=== PATIENT | female | born 1960 | race Caucasian/White ===

== ENCOUNTER 2018-10-16 19:25 | Observation (INO) | payer BC ==
[2018-10-16] MEDS ORDERED: Sodium Chloride 0.9% 1,000 ML IV ONE (19:48)
[2018-10-16] MEDS ORDERED: Morphine 4 MG/ML Syringe IVPUSH ONE (19:48)
[2018-10-16] MEDS ORDERED: Ondansetron 4 MG/2 ML SDV IVPUSH ONE (19:48)
--- NOTE | 2018-10-16 19:49 | EDM.PDOC ---
<Michelle Camp - Last Filed: 10/16/18 21:53> ED HPI GENERAL MEDICAL PROBLEM - General Chief Complaint: Abdominal Pain Stated Complaint: PAIN Time Seen by Provider: 10/16/18 19:48 Source of Information: Reports: Patient History Limitations: Reports: No Limitations - History of Present Illness INITIAL COMMENTS - FREE TEXT/NARRATIVE: HISTORY AND PHYSICAL: History of present illness: She is a 58-year-old female here with complaint of right lower abdominal pain since yesterday. She states this progressed in intensity today prompting her to come to the ED. Pain radiates to her back. She has had vomiting and nonbloody diarrhea. Daughter states that she had a tactile fever home. She denies chest pain, shortness of breath, dysuria, hematuria. Past medical history significant for diabetes, hypertension, hyperlipidemia. She has had cholecystectomy as well as bariatric surgery. Review of systems: As per history of present illness and below otherwise all systems reviewed and negative. Past medical history: As per history of present illness and as reviewed below otherwise noncontributory. Surgical history: As per history of present illness and as reviewed below otherwise noncontributory. Social history: No reported history of drug or alcohol abuse. Family history: As per history of present illness and as reviewed below otherwise noncontributory. Physical exam: General: Patient sitting comfortably in no acute distress and nontoxic appearing HEENT: Atraumatic, normocephalic, pupils reactive, negative for conjunctival pallor or scleral icterus, mucous membranes moist, throat clear, neck supple, nontender, trachea midline. No meningeal signs. Lungs: Clear to auscultation, breath sounds equal bilaterally, chest nontender. Heart: S1S2, regular, negative for clicks, rubs, or overt murmur. Abdomen: Pain to palpation of the right lower quadrant with positive rovsigns sign. Soft, nondistended. Negative for masses or hepatosplenomegaly. Negative for costovertebral tenderness. Pelvis: Stable nontender. Genitourinary: Deferred. Rectal: Deferred. Extremities: Atraumatic, negative for cords or calf pain. Neurovascular unremarkable. Neuro: Awake, alert, oriented. Cranial nerves II through XII unremarkable. Cerebellum unremarkable. Motor and sensory unremarkable throughout. Exam nonfocal. Notes: Dr. Morales consulted and will see patient in the ED. Diagnostics: CBC, CMP, lactate, blood culture x 2, CT abdomen/pelvis Therapeutics: 4mg morphine IV 4mg zofran IV 1L NS IV 0.5mg Dilaudid IV Prescriptions: Impression: Leukocytosis, RLQ abdominal pain Plan: Dr. Morales consulting in the ED. Disposition pending. Definitive disposition and diagnosis as appropriate pending reevaluation and review of above. Right Lower Abdomen Pain Score (Numeric/FACES): 10 - Related Data Allergies Allergy/AdvReac Type Severity Reaction Status Date / Time No Known Allergies Allergy Verified 10/16/18 19:33 Home Meds: Home Meds Dicyclomine HCl [Bentyl] 1 tab QID PRN 10/16/18 [History] Gabapentin [Neurontin] 1 tab Q8HR 10/16/18 [History] Insulin Glargine,Hum.Rec.Anlog [Toujeo Solostar] 35 unit SQ DAILY 10/16/18 [ History] Metoprolol Tartrate 25 mg PO BEDTIME 10/16/18 [History] Metoprolol Tartrate 50 mg PO DAILY 10/16/18 [History] Naltrexone 4.5 mg PO DAILY 10/16/18 [History] Pioglitazone HCl 15 mg PO DAILY 10/16/18 [History] atorvaSTATin Calcium [Atorvastatin Calcium] 40 mg PO DAILY 10/16/18 [History] oxyCODONE HCl/Acetaminophen [Oxycodone-Acetaminophen 5-325] 1 each PO Q8HR 10/16 [History] Past Medical History Cardiovascular History: Reports: High Cholesterol, Hypertension Gastrointestinal History: Reports: Other (See Below) Other Gastrointestinal History: ROJAS DECKHAND History: Reports: Musculoskeletal History: Reports: Back Pain, Chronic Endocrine/Metabolic History: Reports: Diabetes, Type II - Past Surgical History GI Surgical History: Reports: Bariatric Procedure Other GI Surgeries/Procedures: gastric sleeve and revision Female Surgical History: Reports: Section Musculoskeletal Surgical History: Reports: Knee Replacement, Other (See Below) Other Musculoskeletal Surgeries/Procedures:: ankle surgery; lower back surgery Social & Family History - Family History Family Medical History: Noncontributory - Tobacco Use Smoking Status *Q: Never Smoker - Recreational Drug Use Recreational Drug Use: No ED ROS GENERAL - Review of Systems Review Of Systems: ROS reveals no pertinent complaints other than HPI. ED EXAM, GI/ABD - Physical Exam Exam: See Below (See dictation) Course - Vital Signs Last Recorded V/S: Last Vital Signs Temp 36.3 C 10/16/18 21:08 Pulse 98 10/16/18 21:08 Resp 18 10/16/18 21:08 BP 145/96 H 10/16/18 21:08 Pulse Ox 96 10/16/18 21:08 - Orders/Labs/Meds Orders: Active Orders 24 hr Category Date Time Status Patient Status [ADT] Stat ADT 10/16/18 22:27 Ordered CULTURE BLOOD [BC] Stat Lab 10/16/18 21:35 Received CULTURE BLOOD [BC] Stat Lab 10/16/18 21:40 Received Pantoprazole [ProTONIX IV] 80 mg Med 10/16/18 22:30 Active Sodium Chloride 0.9% [Normal Saline] 100 ml IV .Continuous Blood Culture x2 Reflex Set [OM.PC] Stat Oth 10/16/18 21:04 Ordered Medication Orders Pantoprazole Sodium 80 mg/ (Sodium Chloride) 100 mls @ 10 mls/hr IV .Continuous JOSE Labs: Laboratory Tests 10/16/18 10/16/18 10/16/18 Range/Units 19:34 19:34 19:34 WBC 16.76 H (4.0-11.0) K/uL RBC 4.18 L (4.30-5.90) M/uL Hgb 11.8 L (12.0-16.0) g/dL Hct 35.9 L (36.0-46.0) % MCV 85.9 (80.0-98.0) fL MCH 28.2 (27.0-32.0) pg MCHC 32.9 (31.0-37.0) g/dL RDW Std Deviation 42.0 (28.0-62.0) fl RDW Coeff of Paul 13 (11.0-15.0) % Plt Count 483 H (150-400) K/uL MPV 8.50 (7.40-12.00) fL Neut % (Auto) 79.0 (48.0-80.0) % Lymph % (Auto) 13.4 L (16.0-40.0) % Archer % (Auto) 7.0 (0.0-15.0) % Eos % (Auto) 0.5 (0.0-7.0) % Baso % (Auto) 0.1 (0.0-1.5) % Neut # (Auto) 13.2 H (1.4-5.7) K/uL Lymph # (Auto) 2.2 (0.6-2.4) K/uL Archer # (Auto) 1.2 H (0.0-0.8) K/uL Eos # (Auto) 0.1 (0.0-0.7) K/uL Baso # (Auto) 0.0 (0.0-0.1) K/uL Nucleated RBC % 0.0 /100WBC Nucleated RBCs # 0 K/uL Sodium 132 L (136-145) mmol/L Potassium 4.2 (3.5-5.1) mmol/L Chloride 97 L (98-107) mmol/L Carbon Dioxide 25.0 (21.0-32.0) mmol/L BUN 16 (7.0-18.0) mg/dL Creatinine 0.9 (0.6-1.0) mg/dL Est Cr Clr Drug Dosing 58.84 mL/min Estimated GFR (MDRD) > 60.0 ml/min Glucose 288 H (74-106) mg/dL Calcium 9.9 (8.5-10.1) mg/dL Total Bilirubin 0.8 (0.2-1.0) mg/dL AST 11 L (15-37) IU/L ALT 18 (14-63) IU/L Alkaline Phosphatase 166 H (46-116) U/L Lactate Dehydrogenase 215 (81-234) U/L Total Protein 8.0 (6.4-8.2) g/dL Albumin 3.0 L (3.4-5.0) g/dL Globulin 5.0 H (2.6-4.0) g/dL Albumin/Globulin Ratio 0.6 L (0.9-1.6) Lipase 71 L (73-393) U/L Urine Color Urine Appearance Urine pH (5.0-8.0) Ur Specific [place] (1.001-1.035) Urine Protein (NEGATIVE) mg/dL Urine Glucose (UA) (NEGATIVE) mg/dL Urine Ketones (NEGATIVE) mg/dL Urine Occult Blood (NEGATIVE) Urine Nitrite (NEGATIVE) Urine Bilirubin (NEGATIVE) Urine Urobilinogen (<2.0) EU/dL Ur Leukocyte Esterase (NEGATIVE) 10/16/18 Range/Units 21:05 WBC (4.0-11.0) K/uL RBC (4.30-5.90) M/uL Hgb (12.0-16.0) g/dL Hct (36.0-46.0) % MCV (80.0-98.0) fL MCH (27.0-32.0) pg MCHC (31.0-37.0) g/dL RDW Std Deviation (28.0-62.0) fl RDW Coeff of Paul (11.0-15.0) % Plt Count (150-400) K/uL MPV (7.40-12.00) fL Neut % (Auto) (48.0-80.0) % Lymph % (Auto) (16.0-40.0) % Archer % (Auto) (0.0-15.0) % Eos % (Auto) (0.0-7.0) % Baso % (Auto) (0.0-1.5) % Neut # (Auto) (1.4-5.7) K/uL Lymph # (Auto) (0.6-2.4) K/uL Archer # (Auto) (0.0-0.8) K/uL Eos # (Auto) (0.0-0.7) K/uL Baso # (Auto) (0.0-0.1) K/uL Nucleated RBC % /100WBC Nucleated RBCs # K/uL Sodium (136-145) mmol/L Potassium (3.5-5.1) mmol/L Chloride (98-107) mmol/L Carbon Dioxide (21.0-32.0) mmol/L BUN (7.0-18.0) mg/dL Creatinine (0.6-1.0) mg/dL Est Cr Clr Drug Dosing mL/min Estimated GFR (MDRD) ml/min Glucose (74-106) mg/dL Calcium (8.5-10.1) mg/dL Total Bilirubin (0.2-1.0) mg/dL AST (15-37) IU/L ALT (14-63) IU/L Alkaline Phosphatase (46-116) U/L Lactate Dehydrogenase (81-234) U/L Total Protein (6.4-8.2) g/dL Albumin (3.4-5.0) g/dL Globulin (2.6-4.0) g/dL Albumin/Globulin Ratio (0.9-1.6) Lipase (73-393) U/L Urine Color YELLOW Urine Appearance CLEAR Urine pH 6.0 (5.0-8.0) Ur Specific [place] <= 1.005 (1.001-1.035) Urine Protein NEGATIVE (NEGATIVE) mg/dL Urine Glucose (UA) NEGATIVE (NEGATIVE) mg/dL Urine Ketones NEGATIVE (NEGATIVE) mg/dL Urine Occult Blood NEGATIVE (NEGATIVE) Urine Nitrite NEGATIVE (NEGATIVE) Urine Bilirubin NEGATIVE (NEGATIVE) Urine Urobilinogen 0.2 (<2.0) EU/dL Ur Leukocyte Esterase NEGATIVE (NEGATIVE) Meds: Medications Generic Name Dose Route Start Last Admin Trade Name Freq PRN Reason Stop Dose Admin Pantoprazole Sodium 80 mg/ 100 mls @ 10 mls/hr 10/16/18 22:30 Sodium Chloride IV .Continuous JOSE Discontinued Medications Generic Name Dose Route Start Last Admin Trade Name Freq PRN Reason Stop Dose Admin Hydromorphone HCl 0.5 mg 10/16/18 21:33 10/16/18 21:50 Dilaudid IVPUSH 10/16/18 21:34 0.5 mg ONETIME ONE Administration Sodium Chloride 1,000 mls @ 999 mls/hr 10/16/18 19:48 10/16/18 19:53 Normal Saline IV 10/16/18 20:48 999 mls/hr STAT ONE Administration Iopamidol 100 ml 10/16/18 20:38 10/16/18 20:38 Isovue Multipack-370 (76%) IVPUSH 10/16/18 20:39 100 ml ONETIME STA Administration Morphine Sulfate 4 mg 10/16/18 19:48 10/16/18 19:55 Morphine IVPUSH 10/16/18 19:49 4 mg ONETIME ONE Administration Ondansetron HCl 4 mg 10/16/18 19:48 10/16/18 19:54 Zofran IVPUSH 10/16/18 19:49 4 mg ONETIME ONE Administration Pantoprazole Sodium 80 mg 10/16/18 22:25 Protonix Iv IVPUSH 10/16/18 22:26 .BOLUS ONE Departure - Departure Time of Disposition: 21:54 Disposition: Still A Patient 30 Condition: Good Clinical Impression: Abdominal pain, Leukocytosis - Discharge Information Referrals: PCP,None [Primary Care Provider] - Forms: ED Department Discharge - My Orders Last 24 Hours: My Active Orders 10/16/18 22:27 Patient Status [ADT] Stat 10/16/18 22:30 Pantoprazole [ProTONIX IV] 80 mg Sodium Chloride 0.9% [Normal Saline] 100 ml IV .Continuous - Assessment/Plan Last 24 Hours: My Active Orders 10/16/18 22:27 Patient Status [ADT] Stat 10/16/18 22:30 Pantoprazole [ProTONIX IV] 80 mg Sodium Chloride 0.9% [Normal Saline] 100 ml IV .Continuous <Yovany Alexandre - Last Filed: 10/16/18 22:29> ED HPI GENERAL MEDICAL PROBLEM - History of Present Illness INITIAL COMMENTS - FREE TEXT/NARRATIVE: General surgery did see patient emergency department on consult patient will be admitted to hospitalist Dr. Farfan who graciously accepted the patient Dr. Randolph will remain on the case as nurse consultant Protonix 80 mg is ordered IV followed by an 8 mg per hour drip
[2018-10-16 20:03] LABS: CHLORIDE,CL 97 mmol/L (98-107); SODIUM,NA 132 mmol/L (136-145)
[2018-10-16] MEDS ORDERED: Iopamidol 755 MG/ML 500 ML Multipack Bottle IVPUSH STA (20:38)
--- NOTE | 2018-10-16 21:17 | CT ---
INDICATION: Abdominal pain TECHNIQUE: CT abdomen and pelvis acquired with 100 cc Isovue 370 intravenous contrast. COMPARISON: None. FINDINGS: Lower chest: Discoid atelectasis right middle lobe. Liver: Normal in contour with indeterminate hypodensity within segment 7 of the liver measuring 10 millimeters. Gallbladder and bile ducts: Gallbladder is not seen suggesting for cholecystectomy. Pancreas: Moderate pancreatic atrophy Spleen: Unremarkable. Normal in size. No masses. Adrenal glands: Left adrenal nodule measuring 2.2 centimeters and -48 Hounsfield units consistent with a myelolipoma. Smaller myelolipoma right adrenal gland measuring 6 millimeters. Kidneys: Symmetric enhancement without hydronephrosis. Bilateral subcentimeter renal cysts. GI tract: The patient is status post gastrojejunostomy. There is prominent mucosal hyperemia of the stomach with wall thickening and perigastric inflammatory fat stranding. Note is also made of a mild contour deformity of the stomach extending cephalad to the inferior margin of the left lobe of the liver. No discrete abscess or pneumoperitoneum. No definite evidence of obstruction with a moderate amount of stool within the colon. Vasculature: Atherosclerosis without abdominal aortic aneurysm. Lymph nodes: Mesenteric lymph nodes with mild adjacent fat stranding near the stomach measuring up to 11 millimeters. Omentum/Peritoneum/Abdominal Wall: Likely remote fat necrosis within the central mid mesentery. Pelvis: Unremarkable. Bones: Mild degenerative disc disease lumbar spine. IMPRESSION: 1. Status post gastrojejunostomy with prominent hyperemia and wall thickening of the stomach consistent with a severe gastritis. Of note there is also a contour deformity of the stomach extending cephalad which could be postsurgical although the differential diagnosis includes a large gastric ulcer. 2. Upper abdominal adenopathy, likely related to the gastric process. 3. Incidental bilateral adrenal myelolipomas. Please note that all CT scans at this facility use dose modulation, iterative reconstruction, and/or weight-based dosing when appropriate to reduce radiation dose to as low as reasonably achievable. Dictated by Kev Burleson MD @ Oct 16 2018 9:01PM Signed by Dr. Kev Burleson @ Oct 16 2018 9:16PM
[2018-10-16] MEDS ORDERED: HYDROmorphone 1 MG/ML Syringe IVPUSH ONE (21:33)
[2018-10-16] MEDS ORDERED: Pantoprazole 40 MG Vial IVPUSH ONE (22:25)
[2018-10-16] MEDS ORDERED: Pantoprazole 80 MG in Sodium Chloride 0.9% 100 ML IV SCH (22:30)
[2018-10-16] MEDS ORDERED: Sodium Chloride 0.9% 20 ML ONE (22:35)
[2018-10-16] MEDS ORDERED: HYDROmorphone 1 MG/ML Syringe IVPUSH PRN (22:55)
[2018-10-16] MEDS ORDERED: Ondansetron 4 MG/2 ML SDV IVPUSH PRN (22:57)
[2018-10-16] MEDS ORDERED: Promethazine 25 MG/ML SDV IM PRN (22:57)
--- NOTE | 2018-10-16 23:05 | PCM.HP ---
H&P History of Present Illness - General Date of Service: 10/16/18 Admit Problem/Dx: Admission Diagnosis/Problem Admission Diagnosis/Problem Abdominal pain - History of Present Illness Initial Comments - Free Text/Narative: 58 yo female with pmh of DM, HTN, gastric sleeve in 2015 with two other gastric surgeries in 2017 due complications of bleeding. She has been following GI doctor in [place] which she has been prescribed Bentyl and naltrexone for abdominal pain due to problems with her gastric lining. She presents to the ED with a complaint of right sided abdominal pain, nausea and vomiting for past two days. She reports that she has not been able to drink or eat anything. CT scan of abdomen in the ED was suggestive of severe gastritits. Dr. Morales was consulted and saw patient in the ED. Right Lower Abdomen Pain Score (Numeric/FACES): 10 - Related Data Allergies/Adverse Reactions: Allergies Allergy/AdvReac Type Severity Reaction Status Date / Time No Known Allergies Allergy Verified 10/16/18 19:33 Home Medications: Home Meds Dicyclomine HCl [Bentyl] 1 tab QID PRN 10/16/18 [History] Gabapentin [Neurontin] 1 tab Q8HR 10/16/18 [History] Insulin Glargine,Hum.Rec.Anlog [Toujeo Solostar] 35 unit SQ DAILY 10/16/18 [ History] Metoprolol Tartrate 25 mg PO BEDTIME 10/16/18 [History] Metoprolol Tartrate 50 mg PO DAILY 10/16/18 [History] Naltrexone 4.5 mg PO DAILY 10/16/18 [History] Pioglitazone HCl 15 mg PO DAILY 10/16/18 [History] atorvaSTATin Calcium [Atorvastatin Calcium] 40 mg PO DAILY 10/16/18 [History] oxyCODONE HCl/Acetaminophen [Oxycodone-Acetaminophen 5-325] 1 each PO Q8HR 10/16 [History] Past Medical History Cardiovascular History: Reports: High Cholesterol, Hypertension Gastrointestinal History: Reports: Other (See Below) Other Gastrointestinal History: ROJAS [employer] History: Reports: Musculoskeletal History: Reports: Back Pain, Chronic Endocrine/Metabolic History: Reports: Diabetes, Type II - Past Surgical History GI Surgical History: Reports: Bariatric Procedure Other GI Surgeries/Procedures: gastric sleeve and revision Female Surgical History: Reports: Section Musculoskeletal Surgical History: Reports: Knee Replacement, Other (See Below) Other Musculoskeletal Surgeries/Procedures:: ankle surgery; lower back surgery Social & Family History - Family History Family Medical History: Noncontributory - Tobacco Use Smoking Status *Q: Never Smoker - Recreational Drug Use Recreational Drug Use: No H&P Review of Systems - Review of Systems: Review Of Systems: ROS reveals no pertinent complaints other than HPI. Exam - Exam Exam: See Below - Vital Signs Vital Signs: Last Vital Signs Temp 36.3 C 10/16/18 21:08 Pulse 91 10/16/18 22:43 Resp 20 10/16/18 22:43 BP 179/104 H 10/16/18 22:43 Pulse Ox 97 10/16/18 22:43 Weight: 81.647 kg - Exam General: Alert, Oriented HEENT: Mucosa Moist & [place] Lungs: Clear to Auscultation, Normal Respiratory Effort Cardiovascular: Regular Rate, Regular Rhythm GI/Abdominal Exam: Soft, Tender (Right upper quadrant). No: Distended, Rebound , Hernia Extremities: Non-Tender, No Pedal Edema - Patient Data Lab Results Last 24 hrs: Laboratory Results - last 24 hr 10/16/18 10/16/18 10/16/18 Range/Units 19:34 19:34 19:34 WBC 16.76 H (4.0-11.0) K/uL RBC 4.18 L (4.30-5.90) M/uL Hgb 11.8 L (12.0-16.0) g/dL Hct 35.9 L (36.0-46.0) % MCV 85.9 (80.0-98.0) fL MCH 28.2 (27.0-32.0) pg MCHC 32.9 (31.0-37.0) g/dL RDW Std Deviation 42.0 (28.0-62.0) fl RDW Coeff of Paul 13 (11.0-15.0) % Plt Count 483 H (150-400) K/uL MPV 8.50 (7.40-12.00) fL Neut % (Auto) 79.0 (48.0-80.0) % Lymph % (Auto) 13.4 L (16.0-40.0) % Cobb % (Auto) 7.0 (0.0-15.0) % Eos % (Auto) 0.5 (0.0-7.0) % Baso % (Auto) 0.1 (0.0-1.5) % Neut # (Auto) 13.2 H (1.4-5.7) K/uL Lymph # (Auto) 2.2 (0.6-2.4) K/uL Cobb # (Auto) 1.2 H (0.0-0.8) K/uL Eos # (Auto) 0.1 (0.0-0.7) K/uL Baso # (Auto) 0.0 (0.0-0.1) K/uL Nucleated RBC % 0.0 /100WBC Nucleated RBCs # 0 K/uL Sodium 132 L (136-145) mmol/L Potassium 4.2 (3.5-5.1) mmol/L Chloride 97 L (98-107) mmol/L Carbon Dioxide 25.0 (21.0-32.0) mmol/L BUN 16 (7.0-18.0) mg/dL Creatinine 0.9 (0.6-1.0) mg/dL Est Cr Clr Drug Dosing 58.84 mL/min Estimated GFR (MDRD) > 60.0 ml/min Glucose 288 H (74-106) mg/dL Calcium 9.9 (8.5-10.1) mg/dL Total Bilirubin 0.8 (0.2-1.0) mg/dL AST 11 L (15-37) IU/L ALT 18 (14-63) IU/L Alkaline Phosphatase 166 H (46-116) U/L Lactate Dehydrogenase 215 (81-234) U/L Total Protein 8.0 (6.4-8.2) g/dL Albumin 3.0 L (3.4-5.0) g/dL Globulin 5.0 H (2.6-4.0) g/dL Albumin/Globulin Ratio 0.6 L (0.9-1.6) Lipase 71 L (73-393) U/L Urine Color Urine Appearance Urine pH (5.0-8.0) Ur Specific Belle (1.001-1.035) Urine Protein (NEGATIVE) mg/dL Urine Glucose (UA) (NEGATIVE) mg/dL Urine Ketones (NEGATIVE) mg/dL Urine Occult Blood (NEGATIVE) Urine Nitrite (NEGATIVE) Urine Bilirubin (NEGATIVE) Urine Urobilinogen (<2.0) EU/dL Ur Leukocyte Esterase (NEGATIVE) 10/16/18 Range/Units 21:05 WBC (4.0-11.0) K/uL RBC (4.30-5.90) M/uL Hgb (12.0-16.0) g/dL Hct (36.0-46.0) % MCV (80.0-98.0) fL MCH (27.0-32.0) pg MCHC (31.0-37.0) g/dL RDW Std Deviation (28.0-62.0) fl RDW Coeff of Paul (11.0-15.0) % Plt Count (150-400) K/uL MPV (7.40-12.00) fL Neut % (Auto) (48.0-80.0) % Lymph % (Auto) (16.0-40.0) % Cobb % (Auto) (0.0-15.0) % Eos % (Auto) (0.0-7.0) % Baso % (Auto) (0.0-1.5) % Neut # (Auto) (1.4-5.7) K/uL Lymph # (Auto) (0.6-2.4) K/uL Cobb # (Auto) (0.0-0.8) K/uL Eos # (Auto) (0.0-0.7) K/uL Baso # (Auto) (0.0-0.1) K/uL Nucleated RBC % /100WBC Nucleated RBCs # K/uL Sodium (136-145) mmol/L Potassium (3.5-5.1) mmol/L Chloride (98-107) mmol/L Carbon Dioxide (21.0-32.0) mmol/L BUN (7.0-18.0) mg/dL Creatinine (0.6-1.0) mg/dL Est Cr Clr Drug Dosing mL/min Estimated GFR (MDRD) ml/min Glucose (74-106) mg/dL Calcium (8.5-10.1) mg/dL Total Bilirubin (0.2-1.0) mg/dL AST (15-37) IU/L ALT (14-63) IU/L Alkaline Phosphatase (46-116) U/L Lactate Dehydrogenase (81-234) U/L Total Protein (6.4-8.2) g/dL Albumin (3.4-5.0) g/dL Globulin (2.6-4.0) g/dL Albumin/Globulin Ratio (0.9-1.6) Lipase (73-393) U/L Urine Color YELLOW Urine Appearance CLEAR Urine pH 6.0 (5.0-8.0) Ur Specific [place] <= 1.005 (1.001-1.035) Urine Protein NEGATIVE (NEGATIVE) mg/dL Urine Glucose (UA) NEGATIVE (NEGATIVE) mg/dL Urine Ketones NEGATIVE (NEGATIVE) mg/dL Urine Occult Blood NEGATIVE (NEGATIVE) Urine Nitrite NEGATIVE (NEGATIVE) Urine Bilirubin NEGATIVE (NEGATIVE) Urine Urobilinogen 0.2 (<2.0) EU/dL Ur Leukocyte Esterase NEGATIVE (NEGATIVE) Result Diagrams: 10/16/18 19:34 10/16/18 19:34 Problem List Initiated/Reviewed/Updated: Yes Orders Last 24hrs: Active Orders 24 hr Category Date Time Status Patient Status [ADT] Stat ADT 10/16/18 22:27 Active Antiembolic Devices [RC] PER UNIT ROUTINE Care 10/16/18 22:59 Ordered Blood Glucose Check, Bedside [RC] Q6HR Care 10/16/18 22:57 Ordered Oxygen Therapy [RC] PRN Care 10/16/18 22:57 Ordered Up ad Shyann [RC] ASDIRECTED Care 10/16/18 22:57 Ordered VTE/DVT Education [RC] PER UNIT ROUTINE Care 10/16/18 22:57 Ordered Vital Signs [RC] Q4H Care 10/16/18 22:57 Ordered Nothing per Oral Now Diet [DIET] Diet 10/16/18 Breakfast Ordered CBC W/O DIFF,HEMOGRAM [HEME] AM Lab 10/17/18 05:11 Ordered CBC W/O DIFF,HEMOGRAM [HEME] AM Lab 10/18/18 05:11 Ordered COMPREHENSIVE METABOLIC PN,CMP [CHEM] AM Lab 10/17/18 05:11 Ordered COMPREHENSIVE METABOLIC PN,CMP [CHEM] AM Lab 10/18/18 05:11 Ordered CULTURE BLOOD [BC] Stat Lab 10/16/18 21:35 Received CULTURE BLOOD [BC] Stat Lab 10/16/18 21:40 Received HYDROmorphone [Dilaudid] Med 02/15/19 22:55 Ordered 1 mg IVPUSH Q2H PRN Insulin Aspart [NovoLOG] Med 10/16/18 23:00 Ordered See Protocol SUBCUT Q6H Ondansetron [Zofran] Med 10/16/18 22:57 Ordered 4 mg IVPUSH Q4H PRN Pantoprazole [ProTONIX IV] 80 mg Med 10/16/18 22:30 Active Sodium Chloride 0.9% [Normal Saline] 100 ml IV .Continuous Promethazine [Phenergan] Med 10/16/18 22:57 Ordered 25 mg IM Q6H PRN Sodium Chloride 0.9% @ 125 MLS/HR (1000ml) Med 10/16/18 23:00 Ordered Sodium Chloride 0.9% [Normal Saline] 1,000 ml IV ASDIRECTED Blood Culture x2 Reflex Set [OM.PC] Stat Oth 10/16/18 21:04 Ordered Sequential Compression Device [OM.PC] Per Unit Routine Oth 10/16/18 22:58 Ordered Resuscitation Status Routine Resus Stat 10/16/18 22:57 Ordered Medication Orders Pantoprazole Sodium 80 mg/ (Sodium Chloride) 100 mls @ 10 mls/hr IV .Continuous JOSE Assessment/Plan Comment:: 58 yo female with pmh of gastric bypass who is being admitted for severe gastritis. She will be treated with IV Protonix, IV fluid resuscitation. She will be given Zofran and Dilaudid prn.
[2018-10-16] MEDS: Sodium Chloride 0.9% 1,000 ML IV SCH (23:44)
[2018-10-16] MEDS: Insulin Aspart 100 Units/ML 3 ML Pen SUBCUT SCH (23:45)
[2018-10-17] MEDS ORDERED: Morphine 4 MG/ML Syringe IVPUSH PRN (00:08)
[2018-10-17] MEDS: Insulin Aspart 100 Units/ML 3 ML Pen SUBCUT SCH ×3 (06:40→18:06)
[2018-10-17 06:55] LABS: CHLORIDE,CL 100 mmol/L (98-107); SODIUM,NA 135 mmol/L (136-145)
[2018-10-17] MEDS: Sodium Chloride 0.9% 1,000 ML IV SCH ×2 (08:55→17:17)
--- NOTE | 2018-10-17 10:08 | PCM.PN ---
- General Info Date of Service: 10/17/18 Subjective Update: PT is doing much better then on admission, denying any N/V. Abdominal pain is much better as well. - Patient Data Vitals - Most Recent: Last Vital Signs Temp 36.2 C 10/17/18 08:00 Pulse 91 10/17/18 08:00 Resp 16 10/17/18 08:00 BP 132/74 10/17/18 08:00 Pulse Ox 94 L 10/17/18 08:00 Weight - Most Recent: 77.61 kg I&O - Last 24 Hours: Intake & Output 10/16/18 10/17/18 10/17/18 22:59 06:59 14:59 Intake Total 0 Output Total 0 Balance 0 Lab Results Last 24 Hours: Laboratory Results - last 24 hr 10/16/18 10/16/18 10/16/18 Range/Units 19:34 19:34 19:34 WBC 16.76 H (4.0-11.0) K/uL RBC 4.18 L (4.30-5.90) M/uL Hgb 11.8 L (12.0-16.0) g/dL Hct 35.9 L (36.0-46.0) % MCV 85.9 (80.0-98.0) fL MCH 28.2 (27.0-32.0) pg MCHC 32.9 (31.0-37.0) g/dL RDW Std Deviation 42.0 (28.0-62.0) fl RDW Coeff of Paul 13 (11.0-15.0) % Plt Count 483 H (150-400) K/uL MPV 8.50 (7.40-12.00) fL Neut % (Auto) 79.0 (48.0-80.0) % Lymph % (Auto) 13.4 L (16.0-40.0) % [place] % (Auto) 7.0 (0.0-15.0) % Eos % (Auto) 0.5 (0.0-7.0) % Baso % (Auto) 0.1 (0.0-1.5) % Neut # (Auto) 13.2 H (1.4-5.7) K/uL Lymph # (Auto) 2.2 (0.6-2.4) K/uL [place] # (Auto) 1.2 H (0.0-0.8) K/uL Eos # (Auto) 0.1 (0.0-0.7) K/uL Baso # (Auto) 0.0 (0.0-0.1) K/uL Nucleated RBC % 0.0 /100WBC Nucleated RBCs # 0 K/uL Sodium 132 L (136-145) mmol/L Potassium 4.2 (3.5-5.1) mmol/L Chloride 97 L (98-107) mmol/L Carbon Dioxide 25.0 (21.0-32.0) mmol/L BUN 16 (7.0-18.0) mg/dL Creatinine 0.9 (0.6-1.0) mg/dL Est Cr Clr Drug Dosing 58.84 mL/min Estimated GFR (MDRD) > 60.0 ml/min Glucose 288 H (74-106) mg/dL POC Glucose (60-110) mg/dL Calcium 9.9 (8.5-10.1) mg/dL Total Bilirubin 0.8 (0.2-1.0) mg/dL AST 11 L (15-37) IU/L ALT 18 (14-63) IU/L Alkaline Phosphatase 166 H (46-116) U/L Lactate Dehydrogenase 215 (81-234) U/L Total Protein 8.0 (6.4-8.2) g/dL Albumin 3.0 L (3.4-5.0) g/dL Globulin 5.0 H (2.6-4.0) g/dL Albumin/Globulin Ratio 0.6 L (0.9-1.6) Lipase 71 L (73-393) U/L Urine Color Urine Appearance Urine pH (5.0-8.0) Ur Specific [employer] (1.001-1.035) Urine Protein (NEGATIVE) mg/dL Urine Glucose (UA) (NEGATIVE) mg/dL Urine Ketones (NEGATIVE) mg/dL Urine Occult Blood (NEGATIVE) Urine Nitrite (NEGATIVE) Urine Bilirubin (NEGATIVE) Urine Urobilinogen (<2.0) EU/dL Ur Leukocyte Esterase (NEGATIVE) 10/16/18 10/16/18 10/17/18 Range/Units 21:05 23:06 05:59 WBC 13.51 H (4.0-11.0) K/uL RBC 3.61 L (4.30-5.90) M/uL Hgb 10.1 L (12.0-16.0) g/dL Hct 31.2 L (36.0-46.0) % MCV 86.4 (80.0-98.0) fL MCH 28.0 (27.0-32.0) pg MCHC 32.4 (31.0-37.0) g/dL RDW Std Deviation 43.2 (28.0-62.0) fl RDW Coeff of Paul 14 (11.0-15.0) % Plt Count 369 (150-400) K/uL MPV 8.40 (7.40-12.00) fL Neut % (Auto) (48.0-80.0) % Lymph % (Auto) (16.0-40.0) % [place] % (Auto) (0.0-15.0) % Eos % (Auto) (0.0-7.0) % Baso % (Auto) (0.0-1.5) % Neut # (Auto) (1.4-5.7) K/uL Lymph # (Auto) (0.6-2.4) K/uL [place] # (Auto) (0.0-0.8) K/uL Eos # (Auto) (0.0-0.7) K/uL Baso # (Auto) (0.0-0.1) K/uL Nucleated RBC % 0.0 /100WBC Nucleated RBCs # 0 K/uL Sodium (136-145) mmol/L Potassium (3.5-5.1) mmol/L Chloride (98-107) mmol/L Carbon Dioxide (21.0-32.0) mmol/L BUN (7.0-18.0) mg/dL Creatinine (0.6-1.0) mg/dL Est Cr Clr Drug Dosing mL/min Estimated GFR (MDRD) ml/min Glucose (74-106) mg/dL POC Glucose 185 H (60-110) mg/dL Calcium (8.5-10.1) mg/dL Total Bilirubin (0.2-1.0) mg/dL AST (15-37) IU/L ALT (14-63) IU/L Alkaline Phosphatase (46-116) U/L Lactate Dehydrogenase (81-234) U/L Total Protein (6.4-8.2) g/dL Albumin (3.4-5.0) g/dL Globulin (2.6-4.0) g/dL Albumin/Globulin Ratio (0.9-1.6) Lipase (73-393) U/L Urine Color YELLOW Urine Appearance CLEAR Urine pH 6.0 (5.0-8.0) Ur Specific [employer] <= 1.005 (1.001-1.035) Urine Protein NEGATIVE (NEGATIVE) mg/dL Urine Glucose (UA) NEGATIVE (NEGATIVE) mg/dL Urine Ketones NEGATIVE (NEGATIVE) mg/dL Urine Occult Blood NEGATIVE (NEGATIVE) Urine Nitrite NEGATIVE (NEGATIVE) Urine Bilirubin NEGATIVE (NEGATIVE) Urine Urobilinogen 0.2 (<2.0) EU/dL Ur Leukocyte Esterase NEGATIVE (NEGATIVE) 10/17/18 10/17/18 Range/Units 05:59 06:07 WBC (4.0-11.0) K/uL RBC (4.30-5.90) M/uL Hgb (12.0-16.0) g/dL Hct (36.0-46.0) % MCV (80.0-98.0) fL MCH (27.0-32.0) pg MCHC (31.0-37.0) g/dL RDW Std Deviation (28.0-62.0) fl RDW Coeff of Paul (11.0-15.0) % Plt Count (150-400) K/uL MPV (7.40-12.00) fL Neut % (Auto) (48.0-80.0) % Lymph % (Auto) (16.0-40.0) % [place] % (Auto) (0.0-15.0) % Eos % (Auto) (0.0-7.0) % Baso % (Auto) (0.0-1.5) % Neut # (Auto) (1.4-5.7) K/uL Lymph # (Auto) (0.6-2.4) K/uL [place] # (Auto) (0.0-0.8) K/uL Eos # (Auto) (0.0-0.7) K/uL Baso # (Auto) (0.0-0.1) K/uL Nucleated RBC % /100WBC Nucleated RBCs # K/uL Sodium 135 L (136-145) mmol/L Potassium 4.0 (3.5-5.1) mmol/L Chloride 100 (98-107) mmol/L Carbon Dioxide 25.8 (21.0-32.0) mmol/L BUN 13 (7.0-18.0) mg/dL Creatinine 0.7 (0.6-1.0) mg/dL Est Cr Clr Drug Dosing 75.65 mL/min Estimated GFR (MDRD) > 60.0 ml/min Glucose 164 H (74-106) mg/dL POC Glucose 144 H (60-110) mg/dL Calcium 9.4 (8.5-10.1) mg/dL Total Bilirubin 0.7 (0.2-1.0) mg/dL AST 8 L (15-37) IU/L ALT 12 L (14-63) IU/L Alkaline Phosphatase 129 H (46-116) U/L Lactate Dehydrogenase (81-234) U/L Total Protein 6.7 (6.4-8.2) g/dL Albumin 2.4 L (3.4-5.0) g/dL Globulin 4.3 H (2.6-4.0) g/dL Albumin/Globulin Ratio 0.6 L (0.9-1.6) Lipase (73-393) U/L Urine Color Urine Appearance Urine pH (5.0-8.0) Ur Specific [employer] (1.001-1.035) Urine Protein (NEGATIVE) mg/dL Urine Glucose (UA) (NEGATIVE) mg/dL Urine Ketones (NEGATIVE) mg/dL Urine Occult Blood (NEGATIVE) Urine Nitrite (NEGATIVE) Urine Bilirubin (NEGATIVE) Urine Urobilinogen (<2.0) EU/dL Ur Leukocyte Esterase (NEGATIVE) Med Orders - Current: Current Medications Sodium Chloride (Normal Saline) 1,000 mls @ 125 mls/hr IV ASDIRECTED [facility] Last Admin: 10/17/18 08:55 Dose: 125 mls/hr Insulin Aspart (Novolog) 0 unit SUBCUT Q6H [facility]; Protocol Last Admin: 10/17/18 06:40 Dose: Not Given Morphine Sulfate (Morphine Sulfate) 4 mg IV Q3HR PRN PRN Reason: Pain Last Admin: 10/17/18 08:46 Dose: 4 mg Ondansetron HCl (Zofran) 4 mg IVPUSH Q4H PRN PRN Reason: Nausea Pantoprazole Sodium (Protonix Iv) 40 mg IVPUSH BID JOSE Promethazine HCl (Phenergan) 25 mg IM Q6H PRN PRN Reason: Nausea Discontinued Medications Hydromorphone HCl (Dilaudid) 0.5 mg IVPUSH ONETIME ONE Stop: 10/16/18 21:34 Last Admin: 10/16/18 21:50 Dose: 0.5 mg Hydromorphone HCl (Dilaudid) 1 mg IVPUSH Q2H PRN PRN Reason: Pain Last Admin: 10/16/18 23:44 Dose: 1 mg Sodium Chloride (Normal Saline) 1,000 mls @ 999 mls/hr IV STAT ONE Stop: 10/16/18 20:48 Last Admin: 10/16/18 19:53 Dose: 999 mls/hr Pantoprazole Sodium 80 mg/ (Sodium Chloride) 100 mls @ 10 mls/hr IV .Continuous JOSE Last Admin: 10/16/18 23:46 Dose: 10 mls/hr Sodium Chloride (Normal Saline) Confirm Administered Dose 20 mls @ as directed .ROUTE .STK-MED ONE Stop: 10/16/18 22:36 Last Admin: 10/16/18 22:37 Dose: 20 mls/hr Iopamidol (Isovue Multipack-370 (76%)) 100 ml IVPUSH ONETIME STA Stop: 10/16/18 20:39 Last Admin: 10/16/18 20:38 Dose: 100 ml Morphine Sulfate (Morphine) 4 mg IVPUSH ONETIME ONE Stop: 10/16/18 19:49 Last Admin: 10/16/18 19:55 Dose: 4 mg Morphine Sulfate (Morphine) 4 mg IVPUSH Q3HR PRN PRN Reason: Pain Last Admin: 10/17/18 01:40 Dose: 4 mg Ondansetron HCl (Zofran) 4 mg IVPUSH ONETIME ONE Stop: 10/16/18 19:49 Last Admin: 10/16/18 19:54 Dose: 4 mg Pantoprazole Sodium (Protonix Iv) 80 mg IVPUSH .BOLUS ONE Stop: 10/16/18 22:26 Last Admin: 10/16/18 22:37 Dose: 80 mg - Exam General: Alert, Oriented, Cooperative Lungs: Clear to Auscultation, Normal Respiratory Effort Cardiovascular: Regular Rate, Regular Rhythm GI/Abdominal Exam: Soft, Non-Tender Extremities: Normal Inspection - Problem List Review Problem List Initiated/Reviewed/Updated: Yes - Plan Plan:: This is a 58-year-old female who is presenting with a three-day history of nausea/vomiting/severe abdominal pain/diarrhea based on history and physical examination along with CT imaging the etiology of the patient's symptoms is severe gastritis. Plan: Patient is to be made nothing by mouth to allow for GI rest she will be given IV fluids for resuscitation along with IV Protonix. Supportive therapy with antiemetic medication along with pain control medication as needed. Patient's leukocytosis is improving as well as her mild hyponatremia. Continue with current management.
--- NOTE | 2018-10-17 13:47 | PCM.SURGPN ---
- General Info Date of Service: 10/17/18 Functional Status: Reports: Pain Controlled - Review of Systems General: Reports: No Symptoms (nausea resolved and is hungry! pain much better controlled) - Patient Data Vitals - Most Recent: Last Vital Signs Temp 96.8 F 10/17/18 11:51 Pulse 74 10/17/18 11:51 Resp 17 10/17/18 11:51 BP 135/78 10/17/18 11:51 Pulse Ox 95 10/17/18 11:51 Weight - Most Recent: 171 lb 1.6 oz I&O - Last 24 Hours: Intake & Output 10/16/18 10/17/18 10/17/18 22:59 06:59 14:59 Intake Total 0 Output Total 0 Balance 0 Lab Results Last 24 Hrs: Laboratory Results - last 24 hr 10/16/18 10/16/18 10/16/18 Range/Units 19:34 19:34 19:34 WBC 16.76 H (4.0-11.0) K/uL RBC 4.18 L (4.30-5.90) M/uL Hgb 11.8 L (12.0-16.0) g/dL Hct 35.9 L (36.0-46.0) % MCV 85.9 (80.0-98.0) fL MCH 28.2 (27.0-32.0) pg MCHC 32.9 (31.0-37.0) g/dL RDW Std Deviation 42.0 (28.0-62.0) fl RDW Coeff of Paul 13 (11.0-15.0) % Plt Count 483 H (150-400) K/uL MPV 8.50 (7.40-12.00) fL Neut % (Auto) 79.0 (48.0-80.0) % Lymph % (Auto) 13.4 L (16.0-40.0) % [place] % (Auto) 7.0 (0.0-15.0) % Eos % (Auto) 0.5 (0.0-7.0) % Baso % (Auto) 0.1 (0.0-1.5) % Neut # (Auto) 13.2 H (1.4-5.7) K/uL Lymph # (Auto) 2.2 (0.6-2.4) K/uL [place] # (Auto) 1.2 H (0.0-0.8) K/uL Eos # (Auto) 0.1 (0.0-0.7) K/uL Baso # (Auto) 0.0 (0.0-0.1) K/uL Nucleated RBC % 0.0 /100WBC Nucleated RBCs # 0 K/uL Sodium 132 L (136-145) mmol/L Potassium 4.2 (3.5-5.1) mmol/L Chloride 97 L (98-107) mmol/L Carbon Dioxide 25.0 (21.0-32.0) mmol/L BUN 16 (7.0-18.0) mg/dL Creatinine 0.9 (0.6-1.0) mg/dL Est Cr Clr Drug Dosing 58.84 mL/min Estimated GFR (MDRD) > 60.0 ml/min Glucose 288 H (74-106) mg/dL POC Glucose (60-110) mg/dL Calcium 9.9 (8.5-10.1) mg/dL Total Bilirubin 0.8 (0.2-1.0) mg/dL AST 11 L (15-37) IU/L ALT 18 (14-63) IU/L Alkaline Phosphatase 166 H (46-116) U/L Lactate Dehydrogenase 215 (81-234) U/L Total Protein 8.0 (6.4-8.2) g/dL Albumin 3.0 L (3.4-5.0) g/dL Globulin 5.0 H (2.6-4.0) g/dL Albumin/Globulin Ratio 0.6 L (0.9-1.6) Lipase 71 L (73-393) U/L Urine Color Urine Appearance Urine pH (5.0-8.0) Ur Specific [place] (1.001-1.035) Urine Protein (NEGATIVE) mg/dL Urine Glucose (UA) (NEGATIVE) mg/dL Urine Ketones (NEGATIVE) mg/dL Urine Occult Blood (NEGATIVE) Urine Nitrite (NEGATIVE) Urine Bilirubin (NEGATIVE) Urine Urobilinogen (<2.0) EU/dL Ur Leukocyte Esterase (NEGATIVE) 10/16/18 10/16/18 10/17/18 Range/Units 21:05 23:06 05:59 WBC 13.51 H (4.0-11.0) K/uL RBC 3.61 L (4.30-5.90) M/uL Hgb 10.1 L (12.0-16.0) g/dL Hct 31.2 L (36.0-46.0) % MCV 86.4 (80.0-98.0) fL MCH 28.0 (27.0-32.0) pg MCHC 32.4 (31.0-37.0) g/dL RDW Std Deviation 43.2 (28.0-62.0) fl RDW Coeff of Paul 14 (11.0-15.0) % Plt Count 369 (150-400) K/uL MPV 8.40 (7.40-12.00) fL Neut % (Auto) (48.0-80.0) % Lymph % (Auto) (16.0-40.0) % [place] % (Auto) (0.0-15.0) % Eos % (Auto) (0.0-7.0) % Baso % (Auto) (0.0-1.5) % Neut # (Auto) (1.4-5.7) K/uL Lymph # (Auto) (0.6-2.4) K/uL [place] # (Auto) (0.0-0.8) K/uL Eos # (Auto) (0.0-0.7) K/uL Baso # (Auto) (0.0-0.1) K/uL Nucleated RBC % 0.0 /100WBC Nucleated RBCs # 0 K/uL Sodium (136-145) mmol/L Potassium (3.5-5.1) mmol/L Chloride (98-107) mmol/L Carbon Dioxide (21.0-32.0) mmol/L BUN (7.0-18.0) mg/dL Creatinine (0.6-1.0) mg/dL Est Cr Clr Drug Dosing mL/min Estimated GFR (MDRD) ml/min Glucose (74-106) mg/dL POC Glucose 185 H (60-110) mg/dL Calcium (8.5-10.1) mg/dL Total Bilirubin (0.2-1.0) mg/dL AST (15-37) IU/L ALT (14-63) IU/L Alkaline Phosphatase (46-116) U/L Lactate Dehydrogenase (81-234) U/L Total Protein (6.4-8.2) g/dL Albumin (3.4-5.0) g/dL Globulin (2.6-4.0) g/dL Albumin/Globulin Ratio (0.9-1.6) Lipase (73-393) U/L Urine Color YELLOW Urine Appearance CLEAR Urine pH 6.0 (5.0-8.0) Ur Specific [place] <= 1.005 (1.001-1.035) Urine Protein NEGATIVE (NEGATIVE) mg/dL Urine Glucose (UA) NEGATIVE (NEGATIVE) mg/dL Urine Ketones NEGATIVE (NEGATIVE) mg/dL Urine Occult Blood NEGATIVE (NEGATIVE) Urine Nitrite NEGATIVE (NEGATIVE) Urine Bilirubin NEGATIVE (NEGATIVE) Urine Urobilinogen 0.2 (<2.0) EU/dL Ur Leukocyte Esterase NEGATIVE (NEGATIVE) 10/17/18 10/17/18 Range/Units 05:59 06:07 WBC (4.0-11.0) K/uL RBC (4.30-5.90) M/uL Hgb (12.0-16.0) g/dL Hct (36.0-46.0) % MCV (80.0-98.0) fL MCH (27.0-32.0) pg MCHC (31.0-37.0) g/dL RDW Std Deviation (28.0-62.0) fl RDW Coeff of Paul (11.0-15.0) % Plt Count (150-400) K/uL MPV (7.40-12.00) fL Neut % (Auto) (48.0-80.0) % Lymph % (Auto) (16.0-40.0) % [place] % (Auto) (0.0-15.0) % Eos % (Auto) (0.0-7.0) % Baso % (Auto) (0.0-1.5) % Neut # (Auto) (1.4-5.7) K/uL Lymph # (Auto) (0.6-2.4) K/uL [place] # (Auto) (0.0-0.8) K/uL Eos # (Auto) (0.0-0.7) K/uL Baso # (Auto) (0.0-0.1) K/uL Nucleated RBC % /100WBC Nucleated RBCs # K/uL Sodium 135 L (136-145) mmol/L Potassium 4.0 (3.5-5.1) mmol/L Chloride 100 (98-107) mmol/L Carbon Dioxide 25.8 (21.0-32.0) mmol/L BUN 13 (7.0-18.0) mg/dL Creatinine 0.7 (0.6-1.0) mg/dL Est Cr Clr Drug Dosing 75.65 mL/min Estimated GFR (MDRD) > 60.0 ml/min Glucose 164 H (74-106) mg/dL POC Glucose 144 H (60-110) mg/dL Calcium 9.4 (8.5-10.1) mg/dL Total Bilirubin 0.7 (0.2-1.0) mg/dL AST 8 L (15-37) IU/L ALT 12 L (14-63) IU/L Alkaline Phosphatase 129 H (46-116) U/L Lactate Dehydrogenase (81-234) U/L Total Protein 6.7 (6.4-8.2) g/dL Albumin 2.4 L (3.4-5.0) g/dL Globulin 4.3 H (2.6-4.0) g/dL Albumin/Globulin Ratio 0.6 L (0.9-1.6) Lipase (73-393) U/L Urine Color Urine Appearance Urine pH (5.0-8.0) Ur Specific [place] (1.001-1.035) Urine Protein (NEGATIVE) mg/dL Urine Glucose (UA) (NEGATIVE) mg/dL Urine Ketones (NEGATIVE) mg/dL Urine Occult Blood (NEGATIVE) Urine Nitrite (NEGATIVE) Urine Bilirubin (NEGATIVE) Urine Urobilinogen (<2.0) EU/dL Ur Leukocyte Esterase (NEGATIVE) Med Orders - Current: Current Medications Sodium Chloride (Normal Saline) 1,000 mls @ 125 mls/hr IV ASDIRECTED [facility] Last Admin: 10/17/18 08:55 Dose: 125 mls/hr Insulin Aspart (Novolog) 0 unit SUBCUT Q6H [facility]; Protocol Last Admin: 10/17/18 12:17 Dose: Not Given Morphine Sulfate (Morphine Sulfate) 4 mg IV Q3HR PRN PRN Reason: Pain Last Admin: 10/17/18 08:46 Dose: 4 mg Ondansetron HCl (Zofran) 4 mg IVPUSH Q4H PRN PRN Reason: Nausea Pantoprazole Sodium (Protonix Iv) 40 mg IVPUSH BID JOSE Promethazine HCl (Phenergan) 25 mg IM Q6H PRN PRN Reason: Nausea Discontinued Medications Hydromorphone HCl (Dilaudid) 0.5 mg IVPUSH ONETIME ONE Stop: 10/16/18 21:34 Last Admin: 10/16/18 21:50 Dose: 0.5 mg Hydromorphone HCl (Dilaudid) 1 mg IVPUSH Q2H PRN PRN Reason: Pain Last Admin: 10/16/18 23:44 Dose: 1 mg Sodium Chloride (Normal Saline) 1,000 mls @ 999 mls/hr IV STAT ONE Stop: 10/16/18 20:48 Last Admin: 10/16/18 19:53 Dose: 999 mls/hr Pantoprazole Sodium 80 mg/ (Sodium Chloride) 100 mls @ 10 mls/hr IV .Continuous JOSE Last Admin: 10/16/18 23:46 Dose: 10 mls/hr Sodium Chloride (Normal Saline) Confirm Administered Dose 20 mls @ as directed .ROUTE .STK-MED ONE Stop: 10/16/18 22:36 Last Admin: 10/16/18 22:37 Dose: 20 mls/hr Iopamidol (Isovue Multipack-370 (76%)) 100 ml IVPUSH ONETIME STA Stop: 10/16/18 20:39 Last Admin: 10/16/18 20:38 Dose: 100 ml Morphine Sulfate (Morphine) 4 mg IVPUSH ONETIME ONE Stop: 10/16/18 19:49 Last Admin: 10/16/18 19:55 Dose: 4 mg Morphine Sulfate (Morphine) 4 mg IVPUSH Q3HR PRN PRN Reason: Pain Last Admin: 10/17/18 01:40 Dose: 4 mg Ondansetron HCl (Zofran) 4 mg IVPUSH ONETIME ONE Stop: 10/16/18 19:49 Last Admin: 10/16/18 19:54 Dose: 4 mg Pantoprazole Sodium (Protonix Iv) 80 mg IVPUSH .BOLUS ONE Stop: 10/16/18 22:26 Last Admin: 10/16/18 22:37 Dose: 80 mg - Exam GI/Abdominal Exam: Soft, Non-Tender - Problem List Review Problem List Initiated/Reviewed/Updated: Yes - My Orders Last 24 Hours: Active Orders 24 hr Category Date Time Status Patient Status [ADT] Stat ADT 10/16/18 22:27 Active Antiembolic Devices [RC] PER UNIT ROUTINE Care 10/16/18 22:59 Active Blood Glucose Check, Bedside [RC] Q6HR Care 10/16/18 22:57 Active Oxygen Therapy [RC] PRN Care 10/16/18 22:57 Active Up ad Shyann [RC] ASDIRECTED Care 10/16/18 22:57 Active VTE/DVT Education [RC] PER UNIT ROUTINE Care 10/16/18 22:57 Active Vital Signs [RC] Q4H Care 10/16/18 22:57 Active CBC W/O DIFF,HEMOGRAM [HEME] AM Lab 10/18/18 05:11 Ordered COMPREHENSIVE METABOLIC PN,CMP [CHEM] AM Lab 10/18/18 05:11 Ordered CULTURE BLOOD [BC] Stat Lab 10/16/18 21:35 Received CULTURE BLOOD [BC] Stat Lab 10/16/18 21:40 Received Insulin Aspart [NovoLOG] Med 10/16/18 23:00 Active See Protocol SUBCUT Q6H Morphine Sulfate Med 10/17/18 08:45 Active 4 mg IV Q3HR PRN Ondansetron [Zofran] Med 10/16/18 22:57 Active 4 mg IVPUSH Q4H PRN Pantoprazole [ProTONIX IV] Med 10/17/18 21:00 Active 40 mg IVPUSH BID Promethazine [Phenergan] Med 10/16/18 22:57 Active 25 mg IM Q6H PRN Sodium Chloride 0.9% [Normal Saline] 1,000 ml Med 10/16/18 23:00 Active IV ASDIRECTED Blood Culture x2 Reflex Set [OM.PC] Stat Oth 10/16/18 21:04 Ordered Sequential Compression Device [OM.PC] Per Unit Routine Oth 10/16/18 22:58 Ordered Resuscitation Status Routine Resus Stat 10/16/18 22:57 Ordered Medication Orders Sodium Chloride (Normal Saline) 1,000 mls @ 125 mls/hr IV ASDIRECTED [facility] Last Admin: 10/17/18 08:55 Dose: 125 mls/hr Infusion: 10/17/18 07:44 Dose: 125 mls/hr Admin: 10/16/18 23:44 Dose: 125 mls/hr Insulin Aspart (Novolog) 0 unit SUBCUT Q6H [facility]; Protocol Last Admin: 10/17/18 12:17 Dose: Not Given Admin: 10/17/18 06:40 Dose: Not Given Admin: 10/16/18 23:45 Dose: 2 units Morphine Sulfate (Morphine Sulfate) 4 mg IV Q3HR PRN PRN Reason: Pain Last Admin: 10/17/18 08:46 Dose: 4 mg Ondansetron HCl (Zofran) 4 mg IVPUSH Q4H PRN PRN Reason: Nausea Pantoprazole Sodium (Protonix Iv) 40 mg IVPUSH BID JOSE Promethazine HCl (Phenergan) 25 mg IM Q6H PRN PRN Reason: Nausea - Assessment Assessment (Free Text/Narrative):: clinically doing much better, almost like a different person; no BM, no black tarry stool or BRBPR; ok to have ice chips; as pain is much undercontrolled, would be careful with narcotics to avoid narcotic induced ileus. No hernia/ bowel obstruction/gib, agree with start po diet in the morning if pt continue to do well, please order a surg consult - Plan Plan (Free Text/Narrative):: clinically doing much better, almost like a different person; no BM, no black tarry stool or BRBPR; ok to have ice chips; as pain is much undercontrolled, would be careful with narcotics to avoid narcotic induced ileus. No hernia/ bowel obstruction/gib, agree with start po diet in the morning if pt continue to do well, please order a surg consult
[2018-10-17] MEDS ORDERED: Acetaminophen 325 MG Tab PO PRN (20:00)
[2018-10-17] MEDS: Pantoprazole 40 MG Vial IVPUSH SCH (20:43)
[2018-10-18] MEDS: Insulin Aspart 100 Units/ML 3 ML Pen SUBCUT SCH ×3 (00:38→12:28)
[2018-10-18] MEDS: Sodium Chloride 0.9% 1,000 ML IV SCH ×2 (01:29→09:33)
[2018-10-18 07:32] LABS: CHLORIDE,CL 101 mmol/L (98-107); SODIUM,NA 135 mmol/L (136-145)
[2018-10-18] MEDS: Pantoprazole 40 MG Vial IVPUSH SCH (09:36)
--- NOTE | 2018-10-18 13:44 | PCM.PN ---
- General Info Date of Service: 10/18/18 - Review of Systems Systems Review Comment:: no abdominal pain. - Patient Data Vitals - Most Recent: Last Vital Signs Temp 36.3 C 10/18/18 11:42 Pulse 69 10/18/18 11:42 Resp 18 10/18/18 11:42 BP 137/70 10/18/18 11:42 Pulse Ox 98 10/18/18 11:42 Weight - Most Recent: 77.61 kg I&O - Last 24 Hours: Intake & Output 10/17/18 10/18/18 10/18/18 22:59 06:59 14:59 Intake Total 2984 Output Total 1200 Balance 1784 Lab Results Last 24 Hours: Laboratory Results - last 24 hr 10/17/18 10/17/18 10/18/18 Range/Units 11:57 17:47 00:14 WBC (4.0-11.0) K/uL RBC (4.30-5.90) M/uL Hgb (12.0-16.0) g/dL Hct (36.0-46.0) % MCV (80.0-98.0) fL MCH (27.0-32.0) pg MCHC (31.0-37.0) g/dL RDW Std Deviation (28.0-62.0) fl RDW Coeff of Paul (11.0-15.0) % Plt Count (150-400) K/uL MPV (7.40-12.00) fL Nucleated RBC % /100WBC Nucleated RBCs # K/uL Sodium (136-145) mmol/L Potassium (3.5-5.1) mmol/L Chloride (98-107) mmol/L Carbon Dioxide (21.0-32.0) mmol/L BUN (7.0-18.0) mg/dL Creatinine (0.6-1.0) mg/dL Est Cr Clr Drug Dosing mL/min Estimated GFR (MDRD) ml/min Glucose (74-106) mg/dL POC Glucose 136 H 160 H 101 (60-110) mg/dL Calcium (8.5-10.1) mg/dL Total Bilirubin (0.2-1.0) mg/dL AST (15-37) IU/L ALT (14-63) IU/L Alkaline Phosphatase (46-116) U/L Total Protein (6.4-8.2) g/dL Albumin (3.4-5.0) g/dL Globulin (2.6-4.0) g/dL Albumin/Globulin Ratio (0.9-1.6) 10/18/18 10/18/18 10/18/18 Range/Units 05:01 06:17 06:17 WBC 7.78 (4.0-11.0) K/uL RBC 3.31 L (4.30-5.90) M/uL Hgb 9.4 L (12.0-16.0) g/dL Hct 28.9 L (36.0-46.0) % MCV 87.3 (80.0-98.0) fL MCH 28.4 (27.0-32.0) pg MCHC 32.5 (31.0-37.0) g/dL RDW Std Deviation 43.1 (28.0-62.0) fl RDW Coeff of Paul 13 (11.0-15.0) % Plt Count 339 (150-400) K/uL MPV 8.50 (7.40-12.00) fL Nucleated RBC % 0.0 /100WBC Nucleated RBCs # 0 K/uL Sodium 135 L (136-145) mmol/L Potassium 3.9 (3.5-5.1) mmol/L Chloride 101 (98-107) mmol/L Carbon Dioxide 28.4 (21.0-32.0) mmol/L BUN 13 (7.0-18.0) mg/dL Creatinine 0.6 (0.6-1.0) mg/dL Est Cr Clr Drug Dosing 88.25 mL/min Estimated GFR (MDRD) > 60.0 ml/min Glucose 111 H (74-106) mg/dL POC Glucose 102 (60-110) mg/dL Calcium 9.2 (8.5-10.1) mg/dL Total Bilirubin 0.7 (0.2-1.0) mg/dL AST 10 L (15-37) IU/L ALT 13 L (14-63) IU/L Alkaline Phosphatase 132 H (46-116) U/L Total Protein 6.6 (6.4-8.2) g/dL Albumin 2.5 L (3.4-5.0) g/dL Globulin 4.1 H (2.6-4.0) g/dL Albumin/Globulin Ratio 0.6 L (0.9-1.6) Jaden Results Last 24 Hours: Microbiology 10/16/18 21:40 Aerobic Blood Culture - Preliminary Blood - Venous - Lab Draw NO GROWTH AFTER 1 DAY Anaerobic Blood Culture - Preliminary NO GROWTH AFTER 1 DAY 10/16/18 21:35 Aerobic Blood Culture - Preliminary Blood - Venous NO GROWTH AFTER 1 DAY Anaerobic Blood Culture - Preliminary NO GROWTH AFTER 1 DAY Med Orders - Current: Current Medications Acetaminophen (Tylenol) 650 mg PO Q6H PRN PRN Reason: Headache Last Admin: 10/17/18 20:41 Dose: 650 mg Sodium Chloride (Normal Saline) 1,000 mls @ 125 mls/hr IV ASDIRECTED JOSE Last Admin: 10/18/18 09:33 Dose: 125 mls/hr Insulin Aspart (Novolog) 0 unit SUBCUT Q6H JOSE; Protocol Last Admin: 10/18/18 12:28 Dose: Not Given Morphine Sulfate (Morphine Sulfate) 4 mg IV Q3HR PRN PRN Reason: Pain Last Admin: 10/17/18 08:46 Dose: 4 mg Ondansetron HCl (Zofran) 4 mg IVPUSH Q4H PRN PRN Reason: Nausea Pantoprazole Sodium (Protonix Iv) 40 mg IVPUSH BID [facility] Last Admin: 10/18/18 09:36 Dose: 40 mg Promethazine HCl (Phenergan) 25 mg IM Q6H PRN PRN Reason: Nausea Discontinued Medications Hydromorphone HCl (Dilaudid) 0.5 mg IVPUSH ONETIME ONE Stop: 10/16/18 21:34 Last Admin: 10/16/18 21:50 Dose: 0.5 mg Hydromorphone HCl (Dilaudid) 1 mg IVPUSH Q2H PRN PRN Reason: Pain Last Admin: 10/16/18 23:44 Dose: 1 mg Sodium Chloride (Normal Saline) 1,000 mls @ 999 mls/hr IV STAT ONE Stop: 10/16/18 20:48 Last Admin: 10/16/18 19:53 Dose: 999 mls/hr Pantoprazole Sodium 80 mg/ (Sodium Chloride) 100 mls @ 10 mls/hr IV .Continuous JOSE Last Admin: 10/16/18 23:46 Dose: 10 mls/hr Sodium Chloride (Normal Saline) Confirm Administered Dose 20 mls @ as directed .ROUTE .STK-MED ONE Stop: 10/16/18 22:36 Last Admin: 10/16/18 22:37 Dose: 20 mls/hr Iopamidol (Isovue Multipack-370 (76%)) 100 ml IVPUSH ONETIME STA Stop: 10/16/18 20:39 Last Admin: 10/16/18 20:38 Dose: 100 ml Morphine Sulfate (Morphine) 4 mg IVPUSH ONETIME ONE Stop: 10/16/18 19:49 Last Admin: 10/16/18 19:55 Dose: 4 mg Morphine Sulfate (Morphine) 4 mg IVPUSH Q3HR PRN PRN Reason: Pain Last Admin: 10/17/18 01:40 Dose: 4 mg Ondansetron HCl (Zofran) 4 mg IVPUSH ONETIME ONE Stop: 10/16/18 19:49 Last Admin: 10/16/18 19:54 Dose: 4 mg Pantoprazole Sodium (Protonix Iv) 80 mg IVPUSH .BOLUS ONE Stop: 10/16/18 22:26 Last Admin: 10/16/18 22:37 Dose: 80 mg - Exam General: Alert, Oriented Lungs: Clear to Auscultation, Normal Respiratory Effort Cardiovascular: Regular Rate, Regular Rhythm GI/Abdominal Exam: Soft, Non-Tender Extremities: Non-Tender, No Pedal Edema Skin: Warm, Dry, Intact - Problem List Review Problem List Initiated/Reviewed/Updated: Yes - My Orders Last 24 Hours: My Active Orders 10/17/18 20:00 Acetaminophen [Tylenol] 650 mg PO Q6H PRN 10/18/18 Lunch Clear Liquid Diet [DIET] 10/19/18 05:11 BASIC METABOLIC PANEL,BMP [CHEM] AM CBC WITH AUTO DIFF [HEME] AM - Plan Plan:: This is a 58-year-old female admitted with severe gastritis. Treating with IV protonix. Will advance diet as tolerated.
--- NOTE | 2018-10-18 14:08 | PCM.DCSUM1 ---
Discharge Summary - Discharge Data Discharge Date: 10/18/18 Discharge Disposition: Home, Self-Care 01 Condition: Fair - Patient Summary/Data Consults: Consultations 10/18/18 01:59 Consult to Physician [CONS] Routine Hospital Course: 58 yo female with pmh of DM, HTN, gastric sleeve in 2015 with two other gastric surgeries in 2017 due complications of bleeding. She has been following GI doctor in [place] which she has been prescribed Bentyl and naltrexone for abdominal pain due to problems with her gastric lining. She presented to the ED with a complaint of right sided abdominal pain, nausea and vomiting for past two days. She reports that she has not been able to drink or eat anything. CT scan of abdomen in the ED was suggestive of severe gastritits. Dr. Morales was consulted and saw patient in the ED. Patient was admitted for severe gastritis. She was treated with bowel rest and IV fluids. Today she is tolerating an oral diet and requesting discharge. She is to be discharged home and follow up with Dr. Morales in two weeks. - Discharge Plan Home Medications: Home Meds Dicyclomine HCl [Bentyl] 1 tab QID PRN 10/16/18 [History] Gabapentin [Neurontin] 1 tab BID 10/16/18 [History] Insulin Glargine,Hum.Rec.Anlog [Toelmer Solmisha] 35 unit SQ DAILY 10/16/18 [ History] Metoprolol Tartrate 25 mg PO BEDTIME 10/16/18 [History] Metoprolol Tartrate 50 mg PO DAILY 10/16/18 [History] Naltrexone 4.5 mg PO DAILY 10/16/18 [History] Pioglitazone HCl 15 mg PO DAILY 10/16/18 [History] atorvaSTATin Calcium [Atorvastatin Calcium] 40 mg PO DAILY 10/16/18 [History] Forms: ED Department Discharge Referrals: PCP,None [Primary Care Provider] - - Discharge Summary/Plan Comment DC Time >30 min.: No - Patient Data Vitals - Most Recent: Last Vital Signs Temp 36.3 C 10/18/18 11:42 Pulse 69 10/18/18 11:42 Resp 18 10/18/18 11:42 BP 137/70 10/18/18 11:42 Pulse Ox 98 10/18/18 11:42 Weight - Most Recent: 77.61 kg I&O - Last 24 hours: Intake & Output 10/17/18 10/18/18 10/18/18 22:59 06:59 14:59 Intake Total 2984 Output Total 1200 Balance 1784 Lab Results - Last 24 hrs: Laboratory Results - last 24 hr 10/17/18 10/17/18 10/18/18 Range/Units 11:57 17:47 00:14 WBC (4.0-11.0) K/uL RBC (4.30-5.90) M/uL Hgb (12.0-16.0) g/dL Hct (36.0-46.0) % MCV (80.0-98.0) fL MCH (27.0-32.0) pg MCHC (31.0-37.0) g/dL RDW Std Deviation (28.0-62.0) fl RDW Coeff of Paul (11.0-15.0) % Plt Count (150-400) K/uL MPV (7.40-12.00) fL Nucleated RBC % /100WBC Nucleated RBCs # K/uL Sodium (136-145) mmol/L Potassium (3.5-5.1) mmol/L Chloride (98-107) mmol/L Carbon Dioxide (21.0-32.0) mmol/L BUN (7.0-18.0) mg/dL Creatinine (0.6-1.0) mg/dL Est Cr Clr Drug Dosing mL/min Estimated GFR (MDRD) ml/min Glucose (74-106) mg/dL POC Glucose 136 H 160 H 101 (60-110) mg/dL Calcium (8.5-10.1) mg/dL Total Bilirubin (0.2-1.0) mg/dL AST (15-37) IU/L ALT (14-63) IU/L Alkaline Phosphatase (46-116) U/L Total Protein (6.4-8.2) g/dL Albumin (3.4-5.0) g/dL Globulin (2.6-4.0) g/dL Albumin/Globulin Ratio (0.9-1.6) 10/18/18 10/18/18 10/18/18 Range/Units 05:01 06:17 06:17 WBC 7.78 (4.0-11.0) K/uL RBC 3.31 L (4.30-5.90) M/uL Hgb 9.4 L (12.0-16.0) g/dL Hct 28.9 L (36.0-46.0) % MCV 87.3 (80.0-98.0) fL MCH 28.4 (27.0-32.0) pg MCHC 32.5 (31.0-37.0) g/dL RDW Std Deviation 43.1 (28.0-62.0) fl RDW Coeff of Paul 13 (11.0-15.0) % Plt Count 339 (150-400) K/uL MPV 8.50 (7.40-12.00) fL Nucleated RBC % 0.0 /100WBC Nucleated RBCs # 0 K/uL Sodium 135 L (136-145) mmol/L Potassium 3.9 (3.5-5.1) mmol/L Chloride 101 (98-107) mmol/L Carbon Dioxide 28.4 (21.0-32.0) mmol/L BUN 13 (7.0-18.0) mg/dL Creatinine 0.6 (0.6-1.0) mg/dL Est Cr Clr Drug Dosing 88.25 mL/min Estimated GFR (MDRD) > 60.0 ml/min Glucose 111 H (74-106) mg/dL POC Glucose 102 (60-110) mg/dL Calcium 9.2 (8.5-10.1) mg/dL Total Bilirubin 0.7 (0.2-1.0) mg/dL AST 10 L (15-37) IU/L ALT 13 L (14-63) IU/L Alkaline Phosphatase 132 H (46-116) U/L Total Protein 6.6 (6.4-8.2) g/dL Albumin 2.5 L (3.4-5.0) g/dL Globulin 4.1 H (2.6-4.0) g/dL Albumin/Globulin Ratio 0.6 L (0.9-1.6) KIT Results - Last 24 hrs: Microbiology 10/16/18 21:40 Aerobic Blood Culture - Preliminary Blood - Venous - Lab Draw NO GROWTH AFTER 1 DAY Anaerobic Blood Culture - Preliminary NO GROWTH AFTER 1 DAY 10/16/18 21:35 Aerobic Blood Culture - Preliminary Blood - Venous NO GROWTH AFTER 1 DAY Anaerobic Blood Culture - Preliminary NO GROWTH AFTER 1 DAY Med Orders - Current: Current Medications Acetaminophen (Tylenol) 650 mg PO Q6H PRN PRN Reason: Headache Last Admin: 10/17/18 20:41 Dose: 650 mg Sodium Chloride (Normal Saline) 1,000 mls @ 125 mls/hr IV ASDIRECTED JOSE Last Admin: 10/18/18 09:33 Dose: 125 mls/hr Insulin Aspart (Novolog) 0 unit SUBCUT Q6H JOSE; Protocol Last Admin: 10/18/18 12:28 Dose: Not Given Morphine Sulfate (Morphine Sulfate) 4 mg IV Q3HR PRN PRN Reason: Pain Last Admin: 10/17/18 08:46 Dose: 4 mg Ondansetron HCl (Zofran) 4 mg IVPUSH Q4H PRN PRN Reason: Nausea Pantoprazole Sodium (Protonix Iv) 40 mg IVPUSH BID JOSE Last Admin: 10/18/18 09:36 Dose: 40 mg Promethazine HCl (Phenergan) 25 mg IM Q6H PRN PRN Reason: Nausea Discontinued Medications Hydromorphone HCl (Dilaudid) 0.5 mg IVPUSH ONETIME ONE Stop: 10/16/18 21:34 Last Admin: 10/16/18 21:50 Dose: 0.5 mg Hydromorphone HCl (Dilaudid) 1 mg IVPUSH Q2H PRN PRN Reason: Pain Last Admin: 10/16/18 23:44 Dose: 1 mg Sodium Chloride (Normal Saline) 1,000 mls @ 999 mls/hr IV STAT ONE Stop: 10/16/18 20:48 Last Admin: 10/16/18 19:53 Dose: 999 mls/hr Pantoprazole Sodium 80 mg/ (Sodium Chloride) 100 mls @ 10 mls/hr IV .Continuous JOSE Last Admin: 10/16/18 23:46 Dose: 10 mls/hr Sodium Chloride (Normal Saline) Confirm Administered Dose 20 mls @ as directed .ROUTE .STK-MED ONE Stop: 10/16/18 22:36 Last Admin: 10/16/18 22:37 Dose: 20 mls/hr Iopamidol (Isovue Multipack-370 (76%)) 100 ml IVPUSH ONETIME STA Stop: 10/16/18 20:39 Last Admin: 10/16/18 20:38 Dose: 100 ml Morphine Sulfate (Morphine) 4 mg IVPUSH ONETIME ONE Stop: 10/16/18 19:49 Last Admin: 10/16/18 19:55 Dose: 4 mg Morphine Sulfate (Morphine) 4 mg IVPUSH Q3HR PRN PRN Reason: Pain Last Admin: 10/17/18 01:40 Dose: 4 mg Ondansetron HCl (Zofran) 4 mg IVPUSH ONETIME ONE Stop: 10/16/18 19:49 Last Admin: 10/16/18 19:54 Dose: 4 mg Pantoprazole Sodium (Protonix Iv) 80 mg IVPUSH .BOLUS ONE Stop: 10/16/18 22:26 Last Admin: 10/16/18 22:37 Dose: 80 mg
--- NOTE | 2018-10-18 14:09 | PCM.SURGPN ---
- General Info Date of Service: 10/18/18 Functional Status: Reports: Pain Controlled (no pain, bryce clear diet, passing gas, no BM) - Patient Data Vitals - Most Recent: Last Vital Signs Temp 97.4 F 10/18/18 11:42 Pulse 69 10/18/18 11:42 Resp 18 10/18/18 11:42 BP 137/70 10/18/18 11:42 Pulse Ox 98 10/18/18 11:42 Weight - Most Recent: 171 lb 1.6 oz I&O - Last 24 Hours: Intake & Output 10/17/18 10/18/18 10/18/18 22:59 06:59 14:59 Intake Total 2984 Output Total 1200 Balance 1784 Lab Results Last 24 Hrs: Laboratory Results - last 24 hr 10/17/18 10/17/18 10/18/18 Range/Units 11:57 17:47 00:14 WBC (4.0-11.0) K/uL RBC (4.30-5.90) M/uL Hgb (12.0-16.0) g/dL Hct (36.0-46.0) % MCV (80.0-98.0) fL MCH (27.0-32.0) pg MCHC (31.0-37.0) g/dL RDW Std Deviation (28.0-62.0) fl RDW Coeff of Paul (11.0-15.0) % Plt Count (150-400) K/uL MPV (7.40-12.00) fL Nucleated RBC % /100WBC Nucleated RBCs # K/uL Sodium (136-145) mmol/L Potassium (3.5-5.1) mmol/L Chloride (98-107) mmol/L Carbon Dioxide (21.0-32.0) mmol/L BUN (7.0-18.0) mg/dL Creatinine (0.6-1.0) mg/dL Est Cr Clr Drug Dosing mL/min Estimated GFR (MDRD) ml/min Glucose (74-106) mg/dL POC Glucose 136 H 160 H 101 (60-110) mg/dL Calcium (8.5-10.1) mg/dL Total Bilirubin (0.2-1.0) mg/dL AST (15-37) IU/L ALT (14-63) IU/L Alkaline Phosphatase (46-116) U/L Total Protein (6.4-8.2) g/dL Albumin (3.4-5.0) g/dL Globulin (2.6-4.0) g/dL Albumin/Globulin Ratio (0.9-1.6) 10/18/18 10/18/18 10/18/18 Range/Units 05:01 06:17 06:17 WBC 7.78 (4.0-11.0) K/uL RBC 3.31 L (4.30-5.90) M/uL Hgb 9.4 L (12.0-16.0) g/dL Hct 28.9 L (36.0-46.0) % MCV 87.3 (80.0-98.0) fL MCH 28.4 (27.0-32.0) pg MCHC 32.5 (31.0-37.0) g/dL RDW Std Deviation 43.1 (28.0-62.0) fl RDW Coeff of Paul 13 (11.0-15.0) % Plt Count 339 (150-400) K/uL MPV 8.50 (7.40-12.00) fL Nucleated RBC % 0.0 /100WBC Nucleated RBCs # 0 K/uL Sodium 135 L (136-145) mmol/L Potassium 3.9 (3.5-5.1) mmol/L Chloride 101 (98-107) mmol/L Carbon Dioxide 28.4 (21.0-32.0) mmol/L BUN 13 (7.0-18.0) mg/dL Creatinine 0.6 (0.6-1.0) mg/dL Est Cr Clr Drug Dosing 88.25 mL/min Estimated GFR (MDRD) > 60.0 ml/min Glucose 111 H (74-106) mg/dL POC Glucose 102 (60-110) mg/dL Calcium 9.2 (8.5-10.1) mg/dL Total Bilirubin 0.7 (0.2-1.0) mg/dL AST 10 L (15-37) IU/L ALT 13 L (14-63) IU/L Alkaline Phosphatase 132 H (46-116) U/L Total Protein 6.6 (6.4-8.2) g/dL Albumin 2.5 L (3.4-5.0) g/dL Globulin 4.1 H (2.6-4.0) g/dL Albumin/Globulin Ratio 0.6 L (0.9-1.6) Jaden Results Last 24 Hrs: Microbiology 10/16/18 21:40 Aerobic Blood Culture - Preliminary Blood - Venous - Lab Draw NO GROWTH AFTER 1 DAY Anaerobic Blood Culture - Preliminary NO GROWTH AFTER 1 DAY 10/16/18 21:35 Aerobic Blood Culture - Preliminary Blood - Venous NO GROWTH AFTER 1 DAY Anaerobic Blood Culture - Preliminary NO GROWTH AFTER 1 DAY Med Orders - Current: Current Medications Acetaminophen (Tylenol) 650 mg PO Q6H PRN PRN Reason: Headache Last Admin: 10/17/18 20:41 Dose: 650 mg Sodium Chloride (Normal Saline) 1,000 mls @ 125 mls/hr IV ASDIRECTED [facility] Last Admin: 10/18/18 09:33 Dose: 125 mls/hr Insulin Aspart (Novolog) 0 unit SUBCUT Q6H JOSE; Protocol Last Admin: 10/18/18 12:28 Dose: Not Given Morphine Sulfate (Morphine Sulfate) 4 mg IV Q3HR PRN PRN Reason: Pain Last Admin: 10/17/18 08:46 Dose: 4 mg Ondansetron HCl (Zofran) 4 mg IVPUSH Q4H PRN PRN Reason: Nausea Pantoprazole Sodium (Protonix Iv) 40 mg IVPUSH BID [facility] Last Admin: 10/18/18 09:36 Dose: 40 mg Promethazine HCl (Phenergan) 25 mg IM Q6H PRN PRN Reason: Nausea Discontinued Medications Hydromorphone HCl (Dilaudid) 0.5 mg IVPUSH ONETIME ONE Stop: 10/16/18 21:34 Last Admin: 10/16/18 21:50 Dose: 0.5 mg Hydromorphone HCl (Dilaudid) 1 mg IVPUSH Q2H PRN PRN Reason: Pain Last Admin: 10/16/18 23:44 Dose: 1 mg Sodium Chloride (Normal Saline) 1,000 mls @ 999 mls/hr IV STAT ONE Stop: 10/16/18 20:48 Last Admin: 10/16/18 19:53 Dose: 999 mls/hr Pantoprazole Sodium 80 mg/ (Sodium Chloride) 100 mls @ 10 mls/hr IV .Continuous JOSE Last Admin: 10/16/18 23:46 Dose: 10 mls/hr Sodium Chloride (Normal Saline) Confirm Administered Dose 20 mls @ as directed .ROUTE .STK-MED ONE Stop: 10/16/18 22:36 Last Admin: 10/16/18 22:37 Dose: 20 mls/hr Iopamidol (Isovue Multipack-370 (76%)) 100 ml IVPUSH ONETIME STA Stop: 10/16/18 20:39 Last Admin: 10/16/18 20:38 Dose: 100 ml Morphine Sulfate (Morphine) 4 mg IVPUSH ONETIME ONE Stop: 10/16/18 19:49 Last Admin: 10/16/18 19:55 Dose: 4 mg Morphine Sulfate (Morphine) 4 mg IVPUSH Q3HR PRN PRN Reason: Pain Last Admin: 10/17/18 01:40 Dose: 4 mg Ondansetron HCl (Zofran) 4 mg IVPUSH ONETIME ONE Stop: 10/16/18 19:49 Last Admin: 10/16/18 19:54 Dose: 4 mg Pantoprazole Sodium (Protonix Iv) 80 mg IVPUSH .BOLUS ONE Stop: 10/16/18 22:26 Last Admin: 10/16/18 22:37 Dose: 80 mg - Exam GI/Abdominal Exam: Normal Bowel Sounds, Soft, Non-Tender - Problem List Review Problem List Initiated/Reviewed/Updated: Yes - My Orders Last 24 Hours: Active Orders 24 hr Category Date Time Status Notify Provider Consults [RC] ASDIRECTED Care 10/18/18 02:00 Active Consult to Physician [CONS] Routine Cons 10/18/18 01:59 Active Clear Liquid Diet [DIET] Diet 10/18/18 Lunch Active BASIC METABOLIC PANEL,BMP [CHEM] AM Lab 10/19/18 05:11 Ordered CBC WITH AUTO DIFF [HEME] AM Lab 10/19/18 05:11 Ordered Acetaminophen [Tylenol] Med 10/17/18 20:00 Active 650 mg PO Q6H PRN Pantoprazole [ProTONIX IV] Med 10/17/18 21:00 Active 40 mg IVPUSH BID Medication Orders Acetaminophen (Tylenol) 650 mg PO Q6H PRN PRN Reason: Headache Last Admin: 10/17/18 20:41 Dose: 650 mg Sodium Chloride (Normal Saline) 1,000 mls @ 125 mls/hr IV ASDIRECTED [facility] Last Admin: 10/18/18 09:33 Dose: 125 mls/hr Infusion: 10/18/18 09:29 Dose: 125 mls/hr Admin: 10/18/18 01:29 Dose: 125 mls/hr Infusion: 10/18/18 01:17 Dose: 125 mls/hr Admin: 10/17/18 17:17 Dose: 125 mls/hr Infusion: 10/17/18 16:55 Dose: 125 mls/hr Admin: 10/17/18 08:55 Dose: 125 mls/hr Infusion: 10/17/18 07:44 Dose: 125 mls/hr Admin: 10/16/18 23:44 Dose: 125 mls/hr Insulin Aspart (Novolog) 0 unit SUBCUT Q6H [facility]; Protocol Last Admin: 10/18/18 12:28 Dose: Not Given Admin: 10/18/18 05:45 Dose: Not Given Admin: 10/18/18 00:38 Dose: Not Given Admin: 10/17/18 18:06 Dose: 2 units Admin: 10/17/18 12:17 Dose: Not Given Admin: 10/17/18 06:40 Dose: Not Given Admin: 10/16/18 23:45 Dose: 2 units Morphine Sulfate (Morphine Sulfate) 4 mg IV Q3HR PRN PRN Reason: Pain Last Admin: 10/17/18 08:46 Dose: 4 mg Ondansetron HCl (Zofran) 4 mg IVPUSH Q4H PRN PRN Reason: Nausea Pantoprazole Sodium (Protonix Iv) 40 mg IVPUSH BID [facility] Last Admin: 10/18/18 09:36 Dose: 40 mg Admin: 10/17/18 20:43 Dose: 40 mg Promethazine HCl (Phenergan) 25 mg IM Q6H PRN PRN Reason: Nausea - Assessment Assessment (Free Text/Narrative):: abd pain resolved; toterate po clear, would adv diet and home; fu in 1-2 wks for egd; pt does not have gib symptoms, no black and tarry stool or BRBPR, but ct showed thickened lining; would address in fu visit; [facility] and care of this pleasant pt - Plan Plan (Free Text/Narrative):: abd pain resolved; toterate po clear, would adv diet and home; fu in 1-2 wks for egd; pt does not have gib symptoms, no black and tarry stool or BRBPR, but ct showed thickened lining; would address in fu visit; [facility] and care of this pleasant pt
--- NOTE | 2018-10-19 09:15 | CONS ---
DATE OF CONSULTATION: 10/16/2018 DATE OF : 1960 PRIMARY CARE PHYSICIAN: None PCP CONSULT IN QUESTION: Leukocytosis. HISTORY OF PRESENT ILLNESS: The patient is a 58 years ago obese lady, who only moved into town from [place] 3 days ago, complaining of a 2-day history of acute onset of abdominal pain. The pain did not get better, according to the patient, so she came to the emergency room. A CAT scan shows thickened mucosa of the stomach and also no bowel obstruction symptom, no pneumoperitoneum, and also appendix is small and no signs or symptoms of appendicitis. Workup in the ED shows a white count of 16,000, Surgery was consulted. PAST MEDICAL HISTORY: Significant for diabetes and hypertension. Denied CO, CVA, and the patient has GI bleeding in the past. The patient is on pain contract in [place] and is taking naltrexone. PAST SURGICAL HISTORY: Gastric sleeve with revision three times and back surgery two times and C- section x1 and left total knee arthrodesis and also left ankle infection with hardware; breast surgery. IMPRESSION: Leukocytosis with a large amount of stool in the colon. CAT scan does not show any bowel obstruction symptom and does not show any abnormal appendicitis or any abnormality leading to appendicitis. I do not see any surgical issue at the time of speaking. The patient complained of abdominal pain and pain medication not working, it is difficult to assess as patient is on pain contract, taking naltrexone, but the patient remarked that she denied black stool. Denied bright red blood per rectum, and the patient is having flatus on and off the whole day. I would recommend Dulcolax per rectum to see whether they can get rid of some of the stool and a GI cocktail to see whether that would calm down the stomach and maybe also Protonix drip in case of any gastritis or inflammatory response from the stomach, as patient has three times gastric sleeve surgery. This CT observed abnormality may well relate to surgical change. At the time of dictation, there is no surgical issue, other than leukocytosis. PHYSICAL EXAMINATION: GENERAL: This is a very pleasant lady with a lot of anxiety. HEENT: Normocephalic and atraumatic. Sclerae are anicteric. LUNGS: Clear to auscultation. HEART: Regular rate and rhythm. ABDOMEN: Soft, nondistended. No pulsating tender midline abdominal structure. Many surgical scars in the abdomen. Large Pfannenstiel incision from pelvis to pelvis and large lower midline incision and normal bowel sounds. As always thank you for the kind referral. JOJO LYN /[id number] MTDD
== END 2018-10-18 15:50 | disposition home or self-care (01) ==
LOC: MW.ED 19:25 → MW.MS 22:46
PROVIDERS: ADMIT Internal Medicine; ATTEND Internal Medicine
DX: K29.70 Gastritis, unspecified, without bleeding (principal); I10 Essential (primary) hypertension; E11.9 Type 2 diabetes mellitus without complications; E78.00 Pure hypercholesterolemia, unspecified; D72.829 Elevated white blood cell count, unspecified; Z98.84 Bariatric surgery status; Z79.4 Long term (current) use of insulin; Z79.899 Other long term (current) drug therapy
CPT/HCPCS: 36415; 74177; 80053; 81003; 82962; 83615; 83690; 85025; 85027; 87040; 96361; 96374; 96375; 96376; 99285; A9270; C9113; G0378; J1170; J1815; J2270; J2405; J7030; J7040; Q9967; 99284

== ENCOUNTER 2021-01-22 14:00 | Emergency (ER) | payer MEDICARE, OTHER ==
[2021-01-22] MEDS ORDERED: Sodium Chloride 0.9% 2.5 ML Syringe FLUSH PRN (14:32)
[2021-01-22] MEDS ORDERED: Ondansetron 4 MG/2 ML SDV IVPUSH ONE (14:32)
[2021-01-22] MEDS ORDERED: Sodium Chloride 0.9% 10 ML Syringe FLUSH PRN (14:32)
[2021-01-22] MEDS ORDERED: Sodium Chloride 0.9% 1,000 ML IV ONE (14:33)
[2021-01-22] MEDS ORDERED: Ketorolac 30 MG/ML SDV IVPUSH ONE (14:35)
--- NOTE | 2021-01-22 14:37 | EDM.PDOC ---
ED HPI GENERAL MEDICAL PROBLEM - General Chief Complaint: Gastrointestinal Problem Stated Complaint: STOMACHE CRAMPS Time Seen by Provider: 01/22/21 14:04 - History of Present Illness INITIAL COMMENTS - FREE TEXT/NARRATIVE: History of present illness: [] This patient is 4 days nausea vomiting diarrhea and abdominal pain. Nausea and vomiting is severe but now she is only retching. The diarrhea was multiple times a day but now she is only able to have sudden urge after she has anything by mouth. Patient has abdominal pain that severe across the mid abdomen. It is constant. Nothing makes it better or worse. Patient has past history of prescription narcotic addiction. Review of systems: As per history of present illness and below otherwise all systems reviewed and negative. Past medical history: As per history of present illness and as reviewed below otherwise noncontributory. Surgical history: As per history of present illness and as reviewed below otherwise noncontributory. Social history: No reported history of drug or alcohol abuse. Family history: As per history of present illness and as reviewed below otherwise noncontributory. Physical exam: Constitutional - well developed, well-nourished and in no acute distress HEENT - normocephalic, no evidence of trauma - external nose and mouth normal - no mass in neck and no JVD - mucosae moist EYES - full EOM, PERRL, no icterus - no evidence of inflammation, injection, or drainage Respiratory - no respiratory distress, equal bilateral expansion, lungs clear to auscultation and no abnormal lung sounds Cardiovascular - Regular Rhythm with S1 and S2 appreciated and no murmur, gallop or rub. GI - abdomen soft without distension or organomegaly - normal bowel sounds - no guard or rebound Musculoskeletal no gross deformity of long bones or joints - no tenderness, swelling or edema Neurologic - Alert and oriented times four - CN II-XII grossly intact - motor sensory and coordination symmetrically normal Psychiatric - appropriate mood and affect with normal thought content Hematologic - No petechiae or purpura - mucosa appropriate color and sclera not pale - normal nail bed color and refill Integument - no rash or evidence of trauma - normal turgor Diagnostics: [] Therapeutics: [] Impression: [] Plan: [] Definitive disposition and diagnosis as appropriate pending reevaluation and review of above. 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: promethazine bilateral abdomen lower Pain Score (Numeric/FACES): 8 - Related Data Allergies Allergy/AdvReac Type Severity Reaction Status Date / Time No Known Allergies Allergy Verified 01/22/21 14:19 Home Meds: Home Meds Dicyclomine HCl [Bentyl] 1 tab QID PRN 10/16/18 [History] Gabapentin [Neurontin] 1 tab BID 10/16/18 [History] Insulin Glargine,Hum.Rec.Anlog [Toujeo Solostar] 35 unit SQ DAILY 10/16/18 [History] Metoprolol Tartrate 50 mg PO BEDTIME 10/16/18 [History] Metoprolol Tartrate 50 mg PO DAILY 10/16/18 [History] Pioglitazone HCl 15 mg PO DAILY 10/16/18 [History] atorvaSTATin Calcium [Atorvastatin Calcium] 40 mg PO DAILY 10/16/18 [History] Pantoprazole Sodium [Protonix] 40 mg PO DAILY #30 tablet. 10/18/18 [Rx] Ondansetron [Zofran ODT] 4 mg PO Q6H PRN #14 tab.dis 01/22/21 [Rx] Past Medical History HEENT History: Reports: None Cardiovascular History: Reports: High Cholesterol, Hypertension Respiratory History: Reports: None Gastrointestinal History: Reports: Other (See Below) Other Gastrointestinal History: ROJAS Genitourinary History: Reports: None [employer] History: Reports: Musculoskeletal History: Reports: Back Pain, Chronic Neurological History: Reports: None Psychiatric History: Reports: None Endocrine/Metabolic History: Reports: Diabetes, Type II Hematologic History: Reports: None Immunologic History: Reports: None Oncologic (Cancer) History: Reports: None Dermatologic History: Reports: None - Infectious Disease History Infectious Disease History: Reports: None - Past Surgical History Head Surgeries/Procedures: Reports: None GI Surgical History: Reports: Bariatric Procedure Other GI Surgeries/Procedures: gastric sleeve and revision Female Surgical History: Reports: Section Musculoskeletal Surgical History: Reports: Knee Replacement, Other (See Below) Other Musculoskeletal Surgeries/Procedures:: ankle surgery; lower back surgery Social & Family History - Family History Family Medical History: No Pertinent Family History - Tobacco Use Tobacco Use Status *Q: Never Tobacco User Second Hand Smoke Exposure: No - Caffeine Use Caffeine Use: Reports: None - Recreational Drug Use Recreational Drug Use: No ED ROS GENERAL - Review of Systems Review Of Systems: Comprehensive ROS is negative, except as noted in HPI. ED EXAM, GENERAL - Physical Exam Exam: See Below Free Text/Narrative:: My physical exam is in the HPI Course - Vital Signs Text/Narrative:: 1752 hrs. the patient feels better. Her CT shows a gastric ulcer and inflammation around the stomach. She already takes pantoprazole. Patient tolerated medicines p.o. IV Lopressor x2 controlled her blood pressure. Patient will be discharged and told to take double pantoprazole until she sees surgery for upper GI endoscopy. She will return if she diaphoretic lightheaded or has severe pain. Last Recorded V/S: Last Vital Signs Temp 36.0 C L 01/22/21 14:12 Pulse 88 01/22/21 17:38 Resp 16 01/22/21 17:20 BP 135/65 01/22/21 17:38 Pulse Ox 98 01/22/21 17:20 - Orders/Labs/Meds Orders: Active Orders 24 hr Category Date Time Status Sodium Chloride 0.9% [Saline Flush] Med 01/22/21 14:32 Active 10 ml FLUSH ASDIRECTED PRN Sodium Chloride 0.9% [Saline Flush] Med 01/22/21 14:32 Active 2.5 ml FLUSH ASDIRECTED PRN Saline Lock Insert [OM.PC] Stat Oth 01/22/21 14:32 Ordered Medication Orders Sodium Chloride (Sodium Chloride 0.9% 10 Ml Syringe) 10 ml FLUSH ASDIRECTED PRN PRN Reason: Keep Vein Open Last Admin: 01/22/21 14:48 Dose: 10 ml Documented by: [id number] Sodium Chloride (Sodium Chloride 0.9% 2.5 Ml Syringe) 2.5 ml FLUSH ASDIRECTED PRN PRN Reason: Keep Vein Open Last Admin: 01/22/21 14:48 Dose: 2.5 ml Documented by: [id number] Labs: Laboratory Tests 01/22/21 01/22/21 Range/Units 14:50 14:50 WBC 14.05 H (4.0-11.0) K/uL RBC 3.30 L (4.30-5.90) M/uL Hgb 9.8 L (12.0-16.0) g/dL Hct 29.9 L (36.0-46.0) % MCV 90.6 (80.0-98.0) fL MCH 29.7 (27.0-32.0) pg MCHC 32.8 (31.0-37.0) g/dL RDW Std Deviation 46.7 (28.0-62.0) fl RDW Coeff of Paul 14 (11.0-15.0) % Plt Count 406 H (150-400) K/uL MPV 9.60 (7.40-12.00) fL Neut % (Auto) 79.7 (48.0-80.0) % Lymph % (Auto) 14.3 L (16.0-40.0) % [place] % (Auto) 5.8 (0.0-15.0) % Eos % (Auto) 0.1 (0.0-7.0) % Baso % (Auto) 0.1 (0.0-1.5) % Neut # (Auto) 11.2 H (1.4-5.7) K/uL Lymph # (Auto) 2.0 (0.6-2.4) K/uL [place] # (Auto) 0.8 (0.0-0.8) K/uL Eos # (Auto) 0.0 (0.0-0.7) K/uL Baso # (Auto) 0.0 (0.0-0.1) K/uL Nucleated RBC % 0.0 /100WBC Nucleated RBCs # 0 K/uL Sodium 138 (136-145) mmol/L Potassium 4.1 (3.5-5.1) mmol/L Chloride 102 (98-107) mmol/L Carbon Dioxide 23.0 (21.0-32.0) mmol/L BUN 36 H (7.0-18.0) mg/dL Creatinine 1.0 (0.6-1.0) mg/dL Est Cr Clr Drug Dosing 51.66 mL/min Estimated GFR (MDRD) 56.6 ml/min Glucose 354 H (74-106) mg/dL Calcium 8.8 (8.5-10.1) mg/dL Total Bilirubin 0.6 (0.2-1.0) mg/dL AST 11 L (15-37) IU/L ALT 24 (14-63) IU/L Alkaline Phosphatase 101 (46-116) U/L Total Protein 7.2 (6.4-8.2) g/dL Albumin 3.7 (3.4-5.0) g/dL Globulin 3.5 (2.6-4.0) g/dL Albumin/Globulin Ratio 1.1 (0.9-1.6) Lipase 34 L (73-393) U/L Meds: Medications Generic Name Dose Route Start Last Admin Trade Name Freq PRN Reason Stop Dose Admin Sodium Chloride 10 ml 01/22/21 14:32 01/22/21 14:48 Sodium Chloride 0.9% 10 Ml Syringe FLUSH 10 ml ASDIRECTED PRN Administration Keep Vein Open Sodium Chloride 2.5 ml 01/22/21 14:32 01/22/21 14:48 Sodium Chloride 0.9% 2.5 Ml Syringe FLUSH 2.5 ml ASDIRECTED PRN Administration Keep Vein Open Discontinued Medications Generic Name Dose Route Start Last Admin Trade Name Freq PRN Reason Stop Dose Admin Gabapentin 300 mg 01/22/21 15:45 01/22/21 15:44 Gabapentin 300 Mg Cap PO 01/22/21 15:46 300 mg ONETIME ONE Administration Sodium Chloride 1,000 mls @ 1,000 mls/hr 01/22/21 14:33 01/22/21 14:47 Normal Saline IV 01/22/21 15:32 1,000 mls/hr .Bolus ONE Administration Iopamidol 100 ml 01/22/21 16:44 01/22/21 16:45 Iopamidol 755 Mg/Ml 500 Ml Multipack Bottle IVPUSH 01/22/21 16:45 100 ml ONETIME STA Administration Ketorolac Tromethamine 15 mg 01/22/21 14:35 01/22/21 14:48 Ketorolac 30 Mg/Ml Sdv IVPUSH 01/22/21 14:36 15 mg ONETIME ONE Administration Metoprolol Tartrate 5 mg 01/22/21 15:37 01/22/21 15:45 Metoprolol Tartrate 5 Mg/5 Ml Sdv IVPUSH 01/22/21 15:38 5 mg ONETIME ONE Administration Metoprolol Tartrate Confirm 01/22/21 15:40 01/22/21 15:54 Metoprolol Tartrate 5 Mg/5 Ml Sdv Administered 01/22/21 15:41 Not Given Dose 5 mg .ROUTE .STK-MED ONE Metoprolol Tartrate 5 mg 01/22/21 17:23 01/22/21 17:32 Metoprolol Tartrate 5 Mg/5 Ml Sdv IVPUSH 01/22/21 17:24 5 mg ONETIME ONE Administration Metoprolol Tartrate 5 mg 01/22/21 17:26 Metoprolol Tartrate 5 Mg/5 Ml Sdv IVPUSH 01/22/21 17:27 ONETIME ONE Morphine Sulfate 4 mg 01/22/21 15:28 01/22/21 15:42 Morphine 4 Mg/Ml Syringe IVPUSH 01/22/21 15:29 4 mg ONETIME ONE Administration Ondansetron HCl 4 mg 01/22/21 14:32 01/22/21 14:48 Ondansetron 4 Mg/2 Ml Sdv IVPUSH 01/22/21 14:33 4 mg ONETIME ONE Administration Departure - Departure Time of Disposition: 17:52 Disposition: Home, Self-Care 01 Condition: Good Clinical Impression: Gastric ulcer, Abdominal pain, Vomiting, Diarrhea - Discharge Information Prescriptions: Ondansetron [Zofran ODT] 4 mg PO Q6H PRN #14 tab.dis PRN Reason: Nausea/Vomiting Instructions: Nausea and Vomiting, Adult, Abdominal Pain, Adult, [id number], Diarrhea, Adult Referrals: Han Martinez MD [Primary Care Provider] - Forms: ED Department Discharge Additional Instructions: Take your pantoprazole twice a day and to see a doctor for follow-up. Have upper GI endoscopy. Return if worse pain cannot tolerate fluids lightheaded weak dizzy pale sweaty or any other unexplained severe symptoms. [facility] - General Surgery Professional [address], [address] [place] [address] The following information is given to patients seen in the emergency department who are being discharged to home. This information is to outline your options for follow-up care. We provide all patients seen in our emergency department with a follow-up referral. The need for follow-up, as well as the timing and circumstances, are variable depending upon the specifics of your emergency department visit. If you don't have a primary care physician on staff, we will provide you with a referral. We always advise you to contact your personal physician following an emergency department visit to inform them of the circumstance of the visit and for follow-up with them and/or the need for any referrals to a consulting specialist. The emergency department will also refer you to a specialist when appropriate. This referral assures that you have the opportunity for follow-up care with a specialist. All of these measure are taken in an effort to provide you with optimal care, which includes your follow-up. Under all circumstances we always encourage you to contact your private physician who remains a resource for coordinating your care. When calling for follow-up care, please make the office aware that this follow-up is from your recent emergency room visit. If for any reason you are refused follow-up, please contact the [facility] Emergency Department at and asked to speak to the emergency department charge nurse. Sepsis Event Note (ED) - Evaluation Sepsis Screening Result: No Definite Risk - Focused Exam Vital Signs: Vital Signs Temp Pulse Pulse Resp BP BP Pulse Ox 01/22/21 17:38 88 135/65 01/22/21 17:32 106 H 196/94 H 01/22/21 17:20 108 H 16 194/98 H 98 01/22/21 15:45 122 H 163/109 H 01/22/21 15:26 129 H 24 H 143/104 H 95 01/22/21 14:12 36.0 C L 128 H 20 157/96 H 98 - My Orders Last 24 Hours: My Active Orders 01/22/21 14:32 Sodium Chloride 0.9% [Saline Flush] 10 ml FLUSH ASDIRECTED PRN Sodium Chloride 0.9% [Saline Flush] 2.5 ml FLUSH ASDIRECTED PRN Saline Lock Insert [OM.PC] Stat - Assessment/Plan Last 24 Hours: My Active Orders 01/22/21 14:32 Sodium Chloride 0.9% [Saline Flush] 10 ml FLUSH ASDIRECTED PRN Sodium Chloride 0.9% [Saline Flush] 2.5 ml FLUSH ASDIRECTED PRN Saline Lock Insert [OM.PC] Stat
[2021-01-22 15:24] LABS: POTASSIUM,K 4.1 mmol/L (3.5-5.1)
[2021-01-22] MEDS ORDERED: Morphine 4 MG/ML Syringe IVPUSH ONE (15:28)
[2021-01-22] MEDS ORDERED: Gabapentin 300 MG Cap PO ONE ×2 (15:34→15:45)
[2021-01-22] MEDS ORDERED: Metoprolol Tartrate 5 MG in Sodium Chloride 0.9% 50 ML IV ONE (15:35)
[2021-01-22] MEDS ORDERED: Metoprolol Tartrate 5 MG/5 ML SDV IVPUSH ONE ×3 (15:37→17:26)
[2021-01-22] MEDS ORDERED: Metoprolol Tartrate 5 MG/5 ML SDV ONE (15:40)
[2021-01-22] MEDS ORDERED: Iopamidol 755 MG/ML 500 ML Multipack Bottle IVPUSH STA (16:44)
--- NOTE | 2021-01-22 17:43 | CT ---
INDICATION: Pain, vomiting, diarrhea. TECHNIQUE: CT of the abdomen and pelvis with 100 cc Isovue 370 IV contrast. Coronal and sagittal reconstructions. COMPARISON: CT of the abdomen pelvis 10/16/2018. FINDINGS: Diffuse hepatic steatosis. Stable small low-attenuation lesion in the posterior right hepatic lobe which has a focus of peripheral enhancement and likely represents a benign hemangioma. Hepatic and portal veins are patent. Cholecystectomy. No biliary dilation. The spleen and pancreas are negative. Stable bilateral adrenal myelolipomas, larger on the left. Symmetric enhancement of the kidneys. No hydronephrosis. No obstructing urinary calculi. The bladder and uterus are normal in appearance. No abnormality in the adnexa. Postoperative changes of gastrojejunostomy. There is wall thickening and mucosal hyperenhancement of the entire stomach, greatest proximally compatible with inflammation. Apparent large ulceration in the gastric body (series 201, image 41). Surrounding inflammatory fat stranding. No fluid collection or extraluminal gas locules to suggest perforation. Findings are similar to prior exam. Small hiatal hernia. No small bowel dilation. The appendix is not identified. Aortoiliac vascular calcifications. No lymphadenopathy. Degenerative changes of the spine. The lung bases are clear. Coronary artery calcifications. IMPRESSION: 1. Wall thickening, mucosal hyperenhancement, and inflammatory fat stranding about the stomach compatible with inflammation. Apparent large ulceration in the gastric body. No evidence of perforation. 2. Diffuse hepatic steatosis. Please note that all CT scans at this facility use dose modulation, iterative reconstruction, and/or weight-based dosing when appropriate to reduce radiation dose to as low as reasonably achievable. Dictated by Mimi Castaneda MD @ 01/22/2021 5:43:[address] Mimi Castaneda @ Jan 22 2021 5:43PM
== END 2021-01-22 18:03 | disposition home or self-care (01) ==
LOC: MW.ED 14:00
DX: K25.9 Gastric ulcer, unspecified as acute or chronic, without hemorrhage or perforation (principal); E78.00 Pure hypercholesterolemia, unspecified; I10 Essential (primary) hypertension; E11.9 Type 2 diabetes mellitus without complications; Z79.4 Long term (current) use of insulin
CPT/HCPCS: 36415; 74177; 80053; 83690; 85025; 93005; 96374; 96375; 96376; 99284; A9270; J1885; J2270; J2405; J3490; J7030; Q9967

== ENCOUNTER 2021-01-26 16:43 | Observation (INO) | payer MEDICARE, OTHER ==
--- NOTE | 2021-01-26 19:41 | CR ---
Indication: Syncope Technique: Chest 1 view Comparison: None Findings/Impression: Cardiovascular and mediastinum: Normal heart size with atherosclerotic calcification. Lungs and pleural space: Lungs are clear. No sign of infiltrate or mass. No sign of pleural effusion. No pneumothorax. Bones and soft tissues: No acute findings. Dictated by Kev Burleson MD @ 01/26/2021 7:41:[address] Kev Burleson @ Jan 26 2021 7:41PM
--- NOTE | 2021-01-26 20:33 | PCM.EKG ---
#1 Interpretation EKG Date: 01/26/21 Time: 20:26 Rhythm: NSR Rate (Beats/Min): 71 ST-T: Normal
[2021-01-26] MEDS ORDERED: Pantoprazole 80 MG in Sodium Chloride 0.9% 20 ML IVPUSH ONE (21:40)
[2021-01-26] MEDS ORDERED: cefTRIAXone 1 GM in Premix Bag 1 BAG IV ONE (21:51)
--- NOTE | 2021-01-26 22:30 | EDM.PDOC ---
ED HPI GENERAL MEDICAL PROBLEM - General Chief Complaint: General Stated Complaint: REFERRAL FROM DR ALONSO Time Seen by Provider: 01/26/21 17:25 Source of Information: Reports: Patient History Limitations: Reports: No Limitations - History of Present Illness INITIAL COMMENTS - FREE TEXT/NARRATIVE: HISTORY AND PHYSICAL: History of present illness: Patient is a 60-year-old female who presents to the ED today from the general surgery clinic, specifically Dr. Mckeon's office, for concern of symptomatic anemia. Patient states that she was seen in the ED on 01/22/2021 and was di agnosed with an ulcer and was told that she needed to follow-up with general surgery. Patient states that she has been taking ulcer medication and has had an ulcer before that required a blood transfusion several years ago. Patient states that she followed up with the general surgeon today, Dr. Mckeon, who repeated some lab work. Patient noted that during her appointment, she has been having increased syncopal/near syncope episodes and feeling dizzy with ambulation. Due to telling Dr. Mckeon this, and her hemoglobin being low on lab work, was instructed to come to the emergency room for her symptoms. Patient states that ever since she was told that she had the ulcer, she has had dizzy episodes specifically with standing. Patient states on Friday, she did have a syncopal event where she hit her head on a cupboard and lost consciousness after getting dizzy with ambulation. Patient states that she has had episodes of dizziness since and had another fall today but states that she did not hit her head or lose consciousness today. Patient states that she is not on any blood thinning medication. Patient states that she was having diarrhea when she was seen in the ED on 01/22/2021 which she is still having softer stools but states that is not like it was. Patient states that she is still having darker stools but states that they are more brown than black like they used to be. Patient denies any other symptoms or concerns. Patient denies fever, chills, chest pain, shortness of breath, or cough. Denies headache, neck stiff ness, change in vision. Denies nausea, vomiting, abdominal pain, constipation, or dysuria. Has not noted any blood in urine. Patient has been eating and drinking appropriately. Review of systems: As per history of present illness and below otherwise all systems reviewed and negative. Past medical history: As per history of present illness and as reviewed below otherwise noncontributory. Surgical history: As per history of present illness and as reviewed below otherwise noncontributory. Social history: See social history for further information Family history: As per history of present illness and as reviewed below otherwise nonco ntributory. Physical exam: General: Patient is alert, oriented, and in no acute distress. Patient laying comfortably on exam table. Vitals stable and reviewed by me HEENT: Atraumatic, normocephalic, pupils equal and reactive bilaterally, negative for conjunctival pallor or scleral icterus, mucous membranes moist, TMs normal bilaterally, throat clear, neck supple, nontender, trachea midline. No d rooling or trismus noted. No meningeal signs. No hot potato voice noted. Lungs: Clear to auscultation, breath sounds equal bilaterally, chest nontender. Heart: S1S2, regular rate and rhythm without overt murmur Abdomen: Soft, nondistended, nontender. Negative for masses or hepatosplenomegaly. Negative for costovertebral tenderness. Pelvis: Stable nontender. Genitourinary: Deferred. Rectal: Deferred. (Patient declines a rectal exam. All risks versus benefits discussed with patient and expresses understanding) Hemoccult positive. Skin: Intact, warm, dry. No lesions or rashes noted. Extremities: Atraumatic, negative for cords or calf pain. Neurovascular unremarkable. Neuro: Awake, alert, oriented. Cranial nerves II through XII unremarkable. Cerebellum unremarkable. Motor and sensory unremarkable throughout. Exam nonfocal. Notes: Patient is a 60-year-old female who presents emergency room today secondary to symptomatic anemia with dizziness, near syncope, and syncopal episodes worsening over the past 1 week. Patient was seen in the ED on 01/22/2021 and was diagnosed with a gastric ulcer and instructed to follow-up with general surgery. Since her ED visit, she has had worsening dizziness, syncopal episode, and a near syncopal episode today with ambulation and continues to have dark stools with a known gastric ulcer. Upon arrival to the ED, patient is vitally stable and well-appearing on exam. Patient declines a rectal exam. All risks versus benefits discussed with patient and expresses understanding. However, patient is agreeable to self rectal exam in order to perform a Hemoccult. Hemoccult is positive. Patient does have lab work done with Dr. Mckeon performed earlier today. CBC performed earlier today shows a hemoglobin of 8.7, decreased from prior on 01/22 of 9.8. Red blood cells noted to be low at 2.82, and hematocrit of 26.8. Will repeat hemoglobin and hematocrit to compare to labs drawn earlier today. Remainder of CBC unremarkable. CMP noted to have a mild elevation in creatinine at 1.2, and BUN at 23. Glucose mildly elevated at 145. Lipase within normal limits. Will add on a urinalysis and cardiac evaluation due to syncopal/near syncopal events and dizziness to patients prior diagnostics as well as plan to type and screen and cross to transfuse 1 unit for symptomatic anemia. Hemoccult noted to be positive. See Dr. Howe's dictation for specific EKG interpretation. However, normal sinus rhythm without signs of STEMI. Troponin negative. Chest x-ray shows no acute cardiopulmonary findings. Repeat H&H unchanged from prior CBC earlier today(drawn 4 hours apart). UA noted for 35-40 WBC, 2+ bacterial, positive leuk/nitrite. Impression: acute cystitis. Will give rocephin in ED for UTI. Upon reevaluation of patient, she remains vitally stable and comfortable throughout stay in ED. I did call and speak to the general surgeon on-call, Dr. Randolph, and thoroughly discussed patient's case. He would like patient to be admitted to medicine with him on consult. I did call and speak to the hospitalist on-call, Dr. Quinteros, and thoroughly discussed patient's case. Will admit to observation to Dr. Quinteros on telemetry Voices understanding and is agreeable to plan of care. Denies any further questions or concerns at this time. Diagnostics: CBC, CMP performed outpatient prior to arrival to the ED. Repeat H&H, INR, troponin, EKG, chest x-ray, type cross/ screen Therapeutics: NS, [id number], Protonix, Rocephin Impression: Symptomatic anemia Gastric ulcer Urinary tract infection Plan: Admit to observation to Dr. Ridley on telemetry Definitive disposition and diagnosis as appropriate pending reevaluation and review of above. - Related Data Allergies Allergy/AdvReac Type Severity Reaction Status Date / Time No Known Allergies Allergy Verified 01/26/21 17:23 Home Meds: Home Meds Dicyclomine HCl [Bentyl] 1 tab QID PRN 10/16/18 [History] Gabapentin [Neurontin] 1 tab BID 10/16/18 [History] Insulin Glargine,Hum.Rec.Anlog [Toujeo Solostar] 35 unit SQ DAILY 10/16/18 [History] Metoprolol Tartrate 50 mg PO BEDTIME 10/16/18 [History] Metoprolol Tartrate 50 mg PO DAILY 10/16/18 [History] Pioglitazone HCl 15 mg PO DAILY 10/16/18 [History] atorvaSTATin Calcium [Atorvastatin Calcium] 40 mg PO DAILY 10/16/18 [History] Pantoprazole Sodium [Protonix] 40 mg PO DAILY #30 tablet.dr 10/18/18 [Rx] Ondansetron [Zofran ODT] 4 mg PO Q6H PRN #14 tab.dis 01/22/21 [Rx] Past Medical History HEENT History: Reports: None Cardiovascular History: Reports: High Cholesterol, Hypertension Respiratory History: Reports: None Gastrointestinal History: Reports: Other (See Below) Other Gastrointestinal History: ROJAS Genitourinary History: Reports: None 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: Musculoskeletal History: Reports: Back Pain, Chronic Neurological History: Reports: None Psychiatric History: Reports: None Endocrine/Metabolic History: Reports: Diabetes, Type II Hematologic History: Reports: None Immunologic History: Reports: None Oncologic (Cancer) History: Reports: None Dermatologic History: Reports: None - Infectious Disease History Infectious Disease History: Reports: Chicken Pox, Shingles - Past Surgical History Head Surgeries/Procedures: Reports: None GI Surgical History: Reports: Bariatric Procedure Other GI Surgeries/Procedures: gastric sleeve and revision Female Surgical History: Reports: Section Musculoskeletal Surgical History: Reports: Knee Replacement, Other (See Below) Other Musculoskeletal Surgeries/Procedures:: ankle surgery; lower back surgery Social & Family History - Family History Family Medical History: No Pertinent Family History - Tobacco Use Tobacco Use Status *Q: Never Tobacco User - Caffeine Use Caffeine Use: Reports: Coffee - Recreational Drug Use Recreational Drug Use: No ED ROS GENERAL - Review of Systems Review Of Systems: Comprehensive ROS is negative, except as noted in HPI. ED EXAM, GENERAL - Physical Exam Exam: See Below (see dictation) Course - Vital Signs Last Recorded V/S: Last Vital Signs Temp 96.8 F L 01/26/21 17:23 Pulse 85 01/26/21 17:23 Resp 18 01/26/21 17:23 BP 137/60 01/26/21 17:23 Pulse Ox 95 01/26/21 17:23 - Orders/Labs/Meds Orders: Active Orders 24 hr Category Date Time Status Admission Status [Patient Status] [ADT] Stat ADT 01/26/21 21:50 Active EKG Documentation Completion [RC] STAT Care 01/26/21 18:48 Active Notify Provider Consults [RC] ASDIRECTED Care 01/26/21 21:50 Active Verify Patient Consent Obtain [RC] ASDIRECTED Care 01/26/21 18:49 Active Consult to Physician [CONS] Stat Cons 01/26/21 21:49 Active CULTURE URINE [MREF] Stat Lab 01/26/21 18:50 Received RED BLOOD CELLS LP [BBK] Stat Lab 01/26/21 18:05 Results TYPE AND SCREEN [BBK] Stat Lab 01/26/21 18:05 Results Transfuse Red Blood Cells [COMM] Stat Oth 01/26/21 18:49 Ordered Labs: Laboratory Tests 01/26/21 01/26/21 01/26/21 Range/Units 14:51 17:20 17:20 Hgb 8.6 L (12.0-16.0) g/dL Hct 26.7 L (36.0-46.0) % INR 0.94 Troponin I < 0.050 (0.000-0.056) ng/mL Lipase (73-393) U/L Urine Color Urine Appearance Urine pH (5.0-8.0) Ur Specific [place] (1.001-1.035) Urine Protein (NEGATIVE) mg/dL Urine Glucose (UA) (NEGATIVE) mg/dL Urine Ketones (NEGATIVE) mg/dL Urine Occult Blood (NEGATIVE) Urine Nitrite (NEGATIVE) Urine Bilirubin (NEGATIVE) Urine Urobilinogen (<2.0) EU/dL Ur Leukocyte Esterase (NEGATIVE) Urine RBC (0-2/HPF) Urine WBC (0-5/HPF) Ur Epithelial Cells (NONE-FEW) Amorphous Sediment (NEGATIVE) Urine Bacteria (NEGATIVE) Urine Mucus (NONE-MOD) Blood Type Antibody Screen Crossmatch 01/26/21 01/26/21 01/26/21 Range/Units 17:20 18:05 18:50 Hgb (12.0-16.0) g/dL Hct (36.0-46.0) % INR Troponin I (0.000-0.056) ng/mL Lipase 89 (73-393) U/L Urine Color YELLOW Urine Appearance SLT CLOUDY Urine pH 5.5 (5.0-8.0) Ur Specific [place] 1.025 (1.001-1.035) Urine Protein NEGATIVE (NEGATIVE) mg/dL Urine Glucose (UA) NEGATIVE (NEGATIVE) mg/dL Urine Ketones NEGATIVE (NEGATIVE) mg/dL Urine Occult Blood NEGATIVE (NEGATIVE) Urine Nitrite POSITIVE H (NEGATIVE) Urine Bilirubin NEGATIVE (NEGATIVE) Urine Urobilinogen 0.2 (<2.0) EU/dL Ur Leukocyte Esterase MODERATE H (NEGATIVE) Urine RBC 0-2 (0-2/HPF) Urine WBC 35-40 (0-5/HPF) Ur Epithelial Cells OCCASIONAL (NONE-FEW) Amorphous Sediment FEW (NEGATIVE) Urine Bacteria 2+ H (NEGATIVE) Urine Mucus FEW (NONE-MOD) Blood Type A POSITIVE Antibody Screen NEGATIVE Crossmatch See Detail Meds: Medications Discontinued Medications Generic Name Dose Route Start Last Admin Trade Name Freq PRN Reason Stop Dose Admin Pantoprazole Sodium 80 mg/ 20 mls @ 420 mls/hr 01/26/21 21:40 Sodium Chloride IVPUSH 01/26/21 21:42 ONETIME ONE Ceftriaxone Sodium/Dextrose 1 50 mls @ 100 mls/hr 01/26/21 21:51 gm/ Premix IV 01/26/21 22:20 ONETIME ONE Departure - Departure Time of Disposition: 22:29 Disposition: Refer to Observation Clinical Impression: Symptomatic anemia Gastric ulcer Qualifiers: Gastric ulcer chronicity: unspecified ulcer chronicity Gastric ulcer complication status: unspecified whether hemorrhage or perforation present Qualified Code(s): K25.9 - Gastric ulcer, unspecified as acute or chronic, without hemorrhage or perforation Urinary tract infection Qualifiers: Urinary tract infection type: acute cystitis Hematuria presence: without hematuria Qualified Code(s): N30.00 - Acute cystitis without hematuria - Discharge Information Referrals: Han Martinez MD [Primary Care Provider] - Forms: ED Department Discharge Sepsis Event Note (ED) - Evaluation Sepsis Screening Result: No Definite Risk - Focused Exam Vital Signs: Vital Signs Temp Pulse Resp BP Pulse Ox 01/26/21 17:23 96.8 F L 85 18 137/60 95 - My Orders Last 24 Hours: My Active Orders 01/26/21 18:05 RED BLOOD CELLS LP [BBK] Stat 01/26/21 18:48 EKG Documentation Completion [RC] STAT 01/26/21 18:49 Verify Patient Consent Obtain [RC] ASDIRECTED Transfuse Red Blood Cells [COMM] Stat 01/26/21 18:50 CULTURE URINE [MREF] Stat 01/26/21 21:49 Consult to Physician [CONS] Stat 01/26/21 21:50 Admission Status [Patient Status] [ADT] Stat Notify Provider Consults [RC] ASDIRECTED - Assessment/Plan Last 24 Hours: My Active Orders 01/26/21 18:05 RED BLOOD CELLS LP [BBK] Stat 01/26/21 18:48 EKG Documentation Completion [RC] STAT 01/26/21 18:49 Verify Patient Consent Obtain [RC] ASDIRECTED Transfuse Red Blood Cells [COMM] Stat 01/26/21 18:50 CULTURE URINE [MREF] Stat 01/26/21 21:49 Consult to Physician [CONS] Stat 01/26/21 21:50 Admission Status [Patient Status] [ADT] Stat Notify Provider Consults [RC] ASDIRECTED
[2021-01-26] MEDS ORDERED: Albuterol/Ipratropium 3.0-0.5 MG/3 ML Neb Soln NEB PRN (23:01)
[2021-01-26] MEDS ORDERED: Ondansetron 4 MG/2 ML SDV IVPUSH PRN (23:01)
[2021-01-26] MEDS ORDERED: Glucagon,Human Recombinant 1 MG Vial IM PRN (23:06)
[2021-01-26] MEDS ORDERED: 50% Dextrose in Water 50 ML Syringe IV PRN (23:06)
--- NOTE | 2021-01-26 23:12 | PCM.HP.2 ---
H&P History of Present Illness - General Date of Service: 01/26/21 Admit Problem/Dx: Admission Diagnosis/Problem Admission Diagnosis/Problem Anemia - History of Present Illness Initial Comments - Free Text/Narative: Patient is a 60-year-old female with PMH of DM, gastrojejunostomy, gastric ulcer who was sent over to ER from the general surgery clinic, (Dr. Mckeon's office), for concern of feeling dizzy and low Hb on lab results. Patient states that she was seen in the ED on 01/22/2021 and was diagnosed with an ulcer upon imaging and was refereed general surgery. Patient states that she was having diarrhea when she was seen in the ED on 01/22/2021 which is gradually improving, Patient was sent home on PPI and zofran, patient states that she has h/o gastric ulcer before that required a blood transfusion several years ago. Patient has an appt with the general surgeon today, Dr. Mckeon, who repeated some lab work. Patient noted that during her appointment, she has been having increased syncopal/near s yncope episodes and feeling dizzy with ambulation, Lab work releveld drop in Hb as well so patient was instructed to come to the emergency room for her symptoms. Patient has had dizzy episodes specifically with standing. Patient states on Friday, she did have a syncopal event where she hit her head on a cupboard and lost consciousness after getting dizzy with ambulation followed by episodes of dizziness and another fall today but states that she did not hit her head or lose consciousness today. Patient states that she is not on any blood thinning medication. Patient states that she is was having darker stools but now they are more brown than black. Patient denies any other symptoms or concerns. Patient denies fever, chills, chest pain, shortness of breath, or cough. Denies headache, neck stiff ness, change in vision. Denies nausea, vomiting, abdominal pain, constipation, or dysuria. Has not noted any blood in urine. Patient has been eating and drinking appropriately. CBC performed earlier today shows a hemoglobin of 8.7, decreased from prior on 01/22 of 9.8. Red blood cells noted to be low at 2.82, and hematocrit of 26.8. Remainder of CBC unremarkable. CMP noted to have a mild elevation in creatinine at 1.2, and BUN at 23. Glucose mildly elevated at 145. Lipase within normal limits. Will add on a urinalysis and cardiac evaluation due to syncopal/near syncopal events and dizziness to patients prior diagnostics as well as plan to type and screen and cross to transfuse 1 unit for symptomatic anemia. Hemoccult noted to be positive. Repeat Hb in ER was stable EKG showed normal sinus rhythm without signs of STEMI. Troponin negative. Chest x-ray shows no acute cardiopulmonary findings. UA noted for 35-40 WBC, 2+ bacterial, positive leuk/nitrite, received rocephin in ED for UTI. general surgeon on-call, Dr. Randolph was consulted he recommended patient to be admitted to medicine with him on consult. Patient was admitted for further management. - Related Data Allergies/Adverse Reactions: Allergies Allergy/AdvReac Type Severity Reaction Status Date / Time No Known Allergies Allergy Verified 01/26/21 17:23 Home Medications: Home Meds Dicyclomine HCl [Bentyl] 1 tab QID PRN 10/16/18 [History] Gabapentin [Neurontin] 1 tab BID 10/16/18 [History] Insulin Glargine,Hum.Rec.Anlog [Toujeo Solostar] 35 unit SQ DAILY 10/16/18 [History] Metoprolol Tartrate 50 mg PO BEDTIME 10/16/18 [History] Metoprolol Tartrate 50 mg PO DAILY 10/16/18 [History] Pioglitazone HCl 15 mg PO DAILY 10/16/18 [History] atorvaSTATin Calcium [Atorvastatin Calcium] 40 mg PO DAILY 10/16/18 [History] Pantoprazole Sodium [Protonix] 40 mg PO DAILY #30 tablet. 10/18/18 [Rx] Ondansetron [Zofran ODT] 4 mg PO Q6H PRN #14 tab.dis 01/22/21 [Rx] Past Medical History HEENT History: Reports: None Cardiovascular History: Reports: High Cholesterol, Hypertension Respiratory History: Reports: None Gastrointestinal History: Reports: Other (See Below) Other Gastrointestinal History: ROJAS Genitourinary History: Reports: None [employer] History: Reports: Musculoskeletal History: Reports: Back Pain, Chronic Neurological History: Reports: None Psychiatric History: Reports: None Endocrine/Metabolic History: Reports: Diabetes, Type II Hematologic History: Reports: None Immunologic History: Reports: None Oncologic (Cancer) History: Reports: None Dermatologic History: Reports: None - Infectious Disease History Infectious Disease History: Reports: Chicken Pox, Shingles - Past Surgical History Head Surgeries/Procedures: Reports: None GI Surgical History: Reports: Bariatric Procedure Other GI Surgeries/Procedures: gastric sleeve and revision Female Surgical History: Reports: Section Musculoskeletal Surgical History: Reports: Knee Replacement, Other (See Below) Other Musculoskeletal Surgeries/Procedures:: ankle surgery; lower back surgery Social & Family History - Family History Family Medical History: No Pertinent Family History - Tobacco Use Tobacco Use Status *Q: Never Tobacco User - Caffeine Use Caffeine Use: Reports: Coffee - Recreational Drug Use Recreational Drug Use: No H&P Review of Systems - Review of Systems: Review Of Systems: See Below General: Reports: Malaise, Weakness, Fatigue. Denies: Fever, Chills Pulmonary: Denies: Shortness of Breath, Wheezing Cardiovascular: Reports: Lightheadedness, Syncope. Denies: Palpitations, Dyspnea on Exertion Gastrointestinal: Denies: Abdominal Pain, Anorexia, Black Stool Genitourinary: Denies: Dysuria, Frequency, Burning Musculoskeletal: Denies: Neck Pain, Shoulder Pain, Arm Pain Skin: Denies: Cyanosis, Jaundice, Mottled Psychiatric: Denies: Confusion, Depression, Mood Lability Neurological: Reports: Dizziness. Denies: Confusion, Headache, Numbness, Paresthesia Exam - Exam Exam: See Below - Vital Signs Vital Signs: Last Vital Signs Temp 36.0 C L 01/26/21 17:23 Pulse 85 01/26/21 17:23 Resp 18 01/26/21 17:23 BP 137/60 01/26/21 17:23 Pulse Ox 95 01/26/21 17:23 Weight: 81.647 kg - Exam General: Alert, Oriented, Cooperative Neck: Supple, Trachea Midline Lungs: Clear to Auscultation Cardiovascular: Regular Rate, Regular Rhythm, Normal S1, Normal S2 GI/Abdominal Exam: Normal Bowel Sounds, Soft, Non-Tender, No Organomegaly, No Distention. No: Distended, Guarding, Rigid, Rebound, Tender, Abnormal Bowel Sounds Extremities: Normal Inspection, Normal Range of Motion - Patient Data Lab Results Last 24 hrs: Laboratory Results - last 24 hr 01/26/21 01/26/21 01/26/21 Range/Units 14:51 17:20 17:20 Hgb 8.6 L (12.0-16.0) g/dL Hct 26.7 L (36.0-46.0) % INR 0.94 Troponin I < 0.050 (0.000-0.056) ng/mL Lipase (73-393) U/L Urine Color Urine Appearance Urine pH (5.0-8.0) Ur Specific [place] (1.001-1.035) Urine Protein (NEGATIVE) mg/dL Urine Glucose (UA) (NEGATIVE) mg/dL Urine Ketones (NEGATIVE) mg/dL Urine Occult Blood (NEGATIVE) Urine Nitrite (NEGATIVE) Urine Bilirubin (NEGATIVE) Urine Urobilinogen (<2.0) EU/dL Ur Leukocyte Esterase (NEGATIVE) Urine RBC (0-2/HPF) Urine WBC (0-5/HPF) Ur Epithelial Cells (NONE-FEW) Amorphous Sediment (NEGATIVE) Urine Bacteria (NEGATIVE) Urine Mucus (NONE-MOD) Blood Type Antibody Screen Crossmatch 01/26/21 01/26/21 01/26/21 Range/Units 17:20 18:05 18:50 Hgb (12.0-16.0) g/dL Hct (36.0-46.0) % INR Troponin I (0.000-0.056) ng/mL Lipase 89 (73-393) U/L Urine Color YELLOW Urine Appearance SLT CLOUDY Urine pH 5.5 (5.0-8.0) Ur Specific [place] 1.025 (1.001-1.035) Urine Protein NEGATIVE (NEGATIVE) mg/dL Urine Glucose (UA) NEGATIVE (NEGATIVE) mg/dL Urine Ketones NEGATIVE (NEGATIVE) mg/dL Urine Occult Blood NEGATIVE (NEGATIVE) Urine Nitrite POSITIVE H (NEGATIVE) Urine Bilirubin NEGATIVE (NEGATIVE) Urine Urobilinogen 0.2 (<2.0) EU/dL Ur Leukocyte Esterase MODERATE H (NEGATIVE) Urine RBC 0-2 (0-2/HPF) Urine WBC 35-40 (0-5/HPF) Ur Epithelial Cells OCCASIONAL (NONE-FEW) Amorphous Sediment FEW (NEGATIVE) Urine Bacteria 2+ H (NEGATIVE) Urine Mucus FEW (NONE-MOD) Blood Type A POSITIVE Antibody Screen NEGATIVE Crossmatch See Detail Result Diagrams: 01/26/21 17:20 Sepsis Event Note - Evaluation Sepsis Screening Result: No Definite Risk - Focused Exam Vital Signs: Vital Signs Temp Pulse Resp BP Pulse Ox 01/26/21 17:23 36.0 C L 85 18 137/60 95 - Problem List (1) Syncopal episodes SNOMED Code(s): 697772993 ICD Code: R55 - SYNCOPE AND COLLAPSE Status: Acute Current Visit: Yes (2) Gastric ulcer SNOMED Code(s): 144899373 ICD Code: K25.9 - GASTRIC ULCER, UNSP ACUTE OR CHRONIC, W/O HEMOR OR PERF Status: Acute Current Visit: Yes Qualifiers: Gastric ulcer chronicity: unspecified ulcer chronicity Gastric ulcer complication status: unspecified whether hemorrhage or perforation present Qualified Code(s): K25.9 - Gastric ulcer, unspecified as acute or chronic, without hemorrhage or perforation (3) Symptomatic anemia SNOMED Code(s): 832020540 ICD Code: D64.9 - ANEMIA, UNSPECIFIED Status: Acute Current Visit: Yes (4) Urinary tract infection SNOMED Code(s): 87155331 ICD Code: N39.0 - URINARY TRACT INFECTION, SITE NOT SPECIFIED Status: Acute Current Visit: Yes Qualifiers: Urinary tract infection type: acute cystitis Hematuria presence: without hematuria Qualified Code(s): N30.00 - Acute cystitis without hematuria (5) Diarrhea SNOMED Code(s): 99192129 ICD Code: R19.7 - DIARRHEA, UNSPECIFIED Status: Acute Current Visit: No Problem List Initiated/Reviewed/Updated: Yes Orders Last 24hrs: Active Orders 24 hr Category Date Time Status Admission Status [Patient Status] [ADT] Stat ADT 01/26/21 21:50 Active Ambulate [RC] ASDIRECTED Care 01/26/21 23:01 Active Antiembolic Devices [RC] PER UNIT ROUTINE Care 01/26/21 23:03 Active EKG Documentation Completion [RC] STAT Care 01/26/21 18:48 Active Notify Provider Consults [RC] ASDIRECTED Care 01/26/21 21:50 Active Oxygen Therapy [RC] PRN Care 01/26/21 23:01 Active RT Aerosol Therapy [RC] ASDIRECTED Care 01/26/21 23:03 Active VTE/DVT Education [RC] PER UNIT ROUTINE Care 01/26/21 23:01 Active Verify Patient Consent Obtain [RC] ASDIRECTED Care 01/26/21 18:49 Active Vital Signs [RC] Q4H Care 01/26/21 23:01 Active Consult to Physician [CONS] Stat Cons 01/26/21 21:49 Active Nothing per Oral Now Diet [DIET] Diet 01/26/21 Dinner Active BMP [BASIC METABOLIC PANEL,BMP] [CHEM] AM Lab 01/27/21 05:11 Ordered C DIFFICILE AG/TOXIN W/REFLEX [RM] Routine Lab 01/26/21 22:58 Ordered CBC WITH AUTO DIFF [HEME] AM Lab 01/27/21 05:11 Ordered CORONAVIRUS COVID-19 REYNOLD [MOLEC] Stat Lab 01/26/21 23:05 Received CULTURE URINE [MREF] Stat Lab 01/26/21 18:50 Received MAGNESIUM [CHEM] AM Lab 01/27/21 05:11 Ordered PHOSPHORUS [CHEM] AM Lab 01/27/21 05:11 Ordered RED BLOOD CELLS LP [BBK] Stat Lab 01/26/21 18:05 Results TYPE AND SCREEN [BBK] Stat Lab 01/26/21 18:05 Results Albuterol/Ipratropium [DuoNeb 3.0-0.5 MG/3 ML] Med 01/26/21 23:01 Active 3 ml NEB Q4HRRT PRN Dextrose 50% in Water Med 01/26/21 23:06 Active 50 ml IV ASDIRECTED PRN Glucagon,Human Recombinant [GlucaGen] Med 01/26/21 23:06 Active 1 mg IM ASDIRECTED PRN Insulin Aspart [NovoLOG] Med 01/26/21 23:15 Active See Protocol SUBCUT Q6H Lactated Ringers [Ringers, Lactated] 1,000 ml Med 01/26/21 23:15 Active IV ASDIRECTED Ondansetron [Zofran] Med 01/26/21 23:01 Active 4 mg IVPUSH Q4H PRN Pantoprazole [ProTONIX IV] Med 01/27/21 09:00 Active 40 mg IV Q12HR cefTRIAXone [Rocephin in Dextrose,Iso-Osm 1 GM/50 ML] Med 01/27/21 09:00 Active 50 ml IV Q24H Sequential Compression Device [OM.PC] Per Unit Routine Oth 01/26/21 23:01 Ordered Transfuse Red Blood Cells [COMM] Stat Oth 01/26/21 18:49 Ordered Medication Orders Albuterol/Ipratropium (Albuterol/Ipratropium 3.0-0.5 Mg/3 Ml Neb Soln) 3 ml NEB Q4HRRT PRN PRN Reason: Shortness Of Breath/wheezing Dextrose/Water (50% Dextrose In Water 50 Ml Syringe) 50 ml IV ASDIRECTED PRN PRN Reason: Hypoglycemia Glucagon (Glucagon,Human Recombinant 1 Mg Vial) 1 mg IM ASDIRECTED PRN PRN Reason: Hypoglycemia Lactated Ringer's (Ringers, Lactated) 1,000 mls @ 125 mls/hr IV ASDIRECTED JOSE Ceftriaxone Sodium/Dextrose (Rocephin In Dextrose,Iso-Osm 1 Gm/50 Ml) 50 mls @ 100 mls/hr IV Q24H JOSE Insulin Aspart (Insulin Aspart 100 Units/Ml 3 Ml Pen) 0 unit SUBCUT Q6H JOSE; Protocol Ondansetron HCl (Ondansetron 4 Mg/2 Ml Sdv) 4 mg IVPUSH Q4H PRN PRN Reason: Nausea/Vomiting Pantoprazole Sodium (Pantoprazole 40 Mg Vial) 40 mg IV Q12HR JOSE Assessment/Plan Comment:: 60 y/o F admitted for syncope, dizziness Low Hb in context of gastric ulcer , possible symptomatic anemia Patient has had diarrhea for the past several days which is slowly improving, will check for C. difficile Patient received IV fluids in the ER we will continue IV fluids for fluid resuscitation Start patient on IV Protonix twice daily Start sucralfate Status post 1 unit of blood transfusion, recheck hemoglobin in the a.m, will aim to keep hemoglobin above 9.0 Monitor closely for any active GI bleed IV Zofran for nausea vomiting DuoNebs as needed for shortness of breath N.p.o. for now will advance diet as tolerated Sliding scale insulin every 6 hours till patient is n.p.o. we will change to 3 times daily AC once patient is started on diet Surgery has been consulted by ER will await recommendations
[2021-01-26] MEDS ORDERED: Lactated Ringers 1,000 ML IV SCH (23:15)
[2021-01-27] MEDS: Sucralfate Suspension 1 GM/10 ML Cup PO SCH ×3 (01:05→13:09)
[2021-01-27] MEDS ORDERED: Dextrose 5%-Lactated Ringers 1,000 ML IV SCH ×2 (01:45→07:45)
[2021-01-27] MEDS: Insulin Aspart 100 Units/ML 3 ML Pen SUBCUT SCH ×3 (01:54→12:10)
[2021-01-27 06:00] LABS: BLOOD UREA NITROGEN,BUN 16 mg/dL (7.0-18.0); CHLORIDE,CL 104 mmol/L (98-107); GLUCOSE RANDOM 138 mg/dL (74-106); POTASSIUM,K 4.2 mmol/L (3.5-5.1); SODIUM,NA 140 mmol/L (136-145)
[2021-01-27] MEDS ORDERED: Pantoprazole 40 MG Vial IV SCH (09:00)
[2021-01-27] MEDS ORDERED: Magnesium Sulfate/Water 2 GM in Premix Bag 1 BAG IV ONE (09:50)
--- NOTE | 2021-01-27 11:04 | PCM.SN.2 ---
- Free Text/Narrative Note: pt seen , chart reveiwed; gib, ct evidence gastic ulcer; [id number] admitted for gib; 2 large bore iv access, monitor unit output, and avoid anticoag; iv PPI as you are doing
--- NOTE | 2021-01-27 11:10 | PCM.SURGPN ---
- General Info Date of Service: 01/27/21 POD#: 1 Functional Status: Reports: Pain Controlled - Review of Systems General: Reports: No Symptoms (nausea resolved; pain resolved; h/h up 1 digit after 1 RBC transfusion) - Patient Data Vitals - Most Recent: Last Vital Signs Temp 96.8 F L 01/27/21 08:00 Pulse 83 01/27/21 08:00 Resp 20 01/27/21 08:00 BP 150/70 H 01/27/21 08:00 Pulse Ox 96 01/27/21 08:00 Weight - Most Recent: 188 lb I&O - Last 24 Hours: Intake & Output 01/26/21 01/27/21 01/27/21 22:59 06:59 14:59 Output Total 1600 Balance -1600 Lab Results Last 24 Hrs: Laboratory Results - last 24 hr 01/26/21 01/26/21 01/26/21 Range/Units 14:51 17:20 17:20 WBC (4.0-11.0) K/uL RBC (4.30-5.90) M/uL Hgb 8.6 L (12.0-16.0) g/dL Hct 26.7 L (36.0-46.0) % MCV (80.0-98.0) fL MCH (27.0-32.0) pg MCHC (31.0-37.0) g/dL RDW Std Deviation (28.0-62.0) fl RDW Coeff of Paul (11.0-15.0) % Plt Count (150-400) K/uL MPV (7.40-12.00) fL Neut % (Auto) (48.0-80.0) % Lymph % (Auto) (16.0-40.0) % Pettis % (Auto) (0.0-15.0) % Eos % (Auto) (0.0-7.0) % Baso % (Auto) (0.0-1.5) % Neut # (Auto) (1.4-5.7) K/uL Lymph # (Auto) (0.6-2.4) K/uL Pettis # (Auto) (0.0-0.8) K/uL Eos # (Auto) (0.0-0.7) K/uL Baso # (Auto) (0.0-0.1) K/uL Nucleated RBC % /100WBC Nucleated RBCs # K/uL INR 0.94 Sodium (136-145) mmol/L Potassium (3.5-5.1) mmol/L Chloride (98-107) mmol/L Carbon Dioxide (21.0-32.0) mmol/L BUN (7.0-18.0) mg/dL Creatinine (0.6-1.0) mg/dL Est Cr Clr Drug Dosing mL/min Estimated GFR (MDRD) ml/min Glucose (74-106) mg/dL POC Glucose (70-99) mg/dL Calcium (8.5-10.1) mg/dL Phosphorus (2.6-4.7) mg/dL Magnesium (1.8-2.4) mg/dL Troponin I < 0.050 (0.000-0.056) ng/mL Lipase (73-393) U/L Urine Color Urine Appearance Urine pH (5.0-8.0) Ur Specific Purling (1.001-1.035) Urine Protein (NEGATIVE) mg/dL Urine Glucose (UA) (NEGATIVE) mg/dL Urine Ketones (NEGATIVE) mg/dL Urine Occult Blood (NEGATIVE) Urine Nitrite (NEGATIVE) Urine Bilirubin (NEGATIVE) Urine Urobilinogen (<2.0) EU/dL Ur Leukocyte Esterase (NEGATIVE) Urine RBC (0-2/HPF) Urine WBC (0-5/HPF) Ur Epithelial Cells (NONE-FEW) Amorphous Sediment (NEGATIVE) Urine Bacteria (NEGATIVE) Urine Mucus (NONE-MOD) SARS-CoV-2 RNA (REYNOLD) (NEGATIVE) Blood Type Antibody Screen Crossmatch 01/26/21 01/26/21 01/26/21 Range/Units 17:20 18:05 18:50 WBC (4.0-11.0) K/uL RBC (4.30-5.90) M/uL Hgb (12.0-16.0) g/dL Hct (36.0-46.0) % MCV (80.0-98.0) fL MCH (27.0-32.0) pg MCHC (31.0-37.0) g/dL RDW Std Deviation (28.0-62.0) fl RDW Coeff of Paul (11.0-15.0) % Plt Count (150-400) K/uL MPV (7.40-12.00) fL Neut % (Auto) (48.0-80.0) % Lymph % (Auto) (16.0-40.0) % Pettis % (Auto) (0.0-15.0) % Eos % (Auto) (0.0-7.0) % Baso % (Auto) (0.0-1.5) % Neut # (Auto) (1.4-5.7) K/uL Lymph # (Auto) (0.6-2.4) K/uL Pettis # (Auto) (0.0-0.8) K/uL Eos # (Auto) (0.0-0.7) K/uL Baso # (Auto) (0.0-0.1) K/uL Nucleated RBC % /100WBC Nucleated RBCs # K/uL INR Sodium (136-145) mmol/L Potassium (3.5-5.1) mmol/L Chloride (98-107) mmol/L Carbon Dioxide (21.0-32.0) mmol/L BUN (7.0-18.0) mg/dL Creatinine (0.6-1.0) mg/dL Est Cr Clr Drug Dosing mL/min Estimated GFR (MDRD) ml/min Glucose (74-106) mg/dL POC Glucose (70-99) mg/dL Calcium (8.5-10.1) mg/dL Phosphorus (2.6-4.7) mg/dL Magnesium (1.8-2.4) mg/dL Troponin I (0.000-0.056) ng/mL Lipase 89 (73-393) U/L Urine Color YELLOW Urine Appearance SLT CLOUDY Urine pH 5.5 (5.0-8.0) Ur Specific Purling 1.025 (1.001-1.035) Urine Protein NEGATIVE (NEGATIVE) mg/dL Urine Glucose (UA) NEGATIVE (NEGATIVE) mg/dL Urine Ketones NEGATIVE (NEGATIVE) mg/dL Urine Occult Blood NEGATIVE (NEGATIVE) Urine Nitrite POSITIVE H (NEGATIVE) Urine Bilirubin NEGATIVE (NEGATIVE) Urine Urobilinogen 0.2 (<2.0) EU/dL Ur Leukocyte Esterase MODERATE H (NEGATIVE) Urine RBC 0-2 (0-2/HPF) Urine WBC 35-40 (0-5/HPF) Ur Epithelial Cells OCCASIONAL (NONE-FEW) Amorphous Sediment FEW (NEGATIVE) Urine Bacteria 2+ H (NEGATIVE) Urine Mucus FEW (NONE-MOD) SARS-CoV-2 RNA (REYNOLD) (NEGATIVE) Blood Type A POSITIVE Antibody Screen NEGATIVE Crossmatch See Detail 01/26/21 01/27/21 01/27/21 Range/Units 23:05 01:10 02:20 WBC (4.0-11.0) K/uL RBC (4.30-5.90) M/uL Hgb (12.0-16.0) g/dL Hct (36.0-46.0) % MCV (80.0-98.0) fL MCH (27.0-32.0) pg MCHC (31.0-37.0) g/dL RDW Std Deviation (28.0-62.0) fl RDW Coeff of Paul (11.0-15.0) % Plt Count (150-400) K/uL MPV (7.40-12.00) fL Neut % (Auto) (48.0-80.0) % Lymph % (Auto) (16.0-40.0) % Pettis % (Auto) (0.0-15.0) % Eos % (Auto) (0.0-7.0) % Baso % (Auto) (0.0-1.5) % Neut # (Auto) (1.4-5.7) K/uL Lymph # (Auto) (0.6-2.4) K/uL Pettis # (Auto) (0.0-0.8) K/uL Eos # (Auto) (0.0-0.7) K/uL Baso # (Auto) (0.0-0.1) K/uL Nucleated RBC % /100WBC Nucleated RBCs # K/uL INR Sodium (136-145) mmol/L Potassium (3.5-5.1) mmol/L Chloride (98-107) mmol/L Carbon Dioxide (21.0-32.0) mmol/L BUN (7.0-18.0) mg/dL Creatinine (0.6-1.0) mg/dL Est Cr Clr Drug Dosing mL/min Estimated GFR (MDRD) ml/min Glucose (74-106) mg/dL POC Glucose 54 L 180 H (70-99) mg/dL Calcium (8.5-10.1) mg/dL Phosphorus (2.6-4.7) mg/dL Magnesium (1.8-2.4) mg/dL Troponin I (0.000-0.056) ng/mL Lipase (73-393) U/L Urine Color Urine Appearance Urine pH (5.0-8.0) Ur Specific Purling (1.001-1.035) Urine Protein (NEGATIVE) mg/dL Urine Glucose (UA) (NEGATIVE) mg/dL Urine Ketones (NEGATIVE) mg/dL Urine Occult Blood (NEGATIVE) Urine Nitrite (NEGATIVE) Urine Bilirubin (NEGATIVE) Urine Urobilinogen (<2.0) EU/dL Ur Leukocyte Esterase (NEGATIVE) Urine RBC (0-2/HPF) Urine WBC (0-5/HPF) Ur Epithelial Cells (NONE-FEW) Amorphous Sediment (NEGATIVE) Urine Bacteria (NEGATIVE) Urine Mucus (NONE-MOD) SARS-CoV-2 RNA (REYNOLD) NEGATIVE (NEGATIVE) Blood Type Antibody Screen Crossmatch 01/27/21 01/27/21 01/27/21 Range/Units 05:10 05:10 05:36 WBC 6.54 (4.0-11.0) K/uL RBC 3.17 L (4.30-5.90) M/uL Hgb 9.5 L (12.0-16.0) g/dL Hct 29.5 L (36.0-46.0) % MCV 93.1 (80.0-98.0) fL MCH 30.0 (27.0-32.0) pg MCHC 32.2 (31.0-37.0) g/dL RDW Std Deviation 49.5 (28.0-62.0) fl RDW Coeff of Paul 15 (11.0-15.0) % Plt Count 311 (150-400) K/uL MPV 9.00 (7.40-12.00) fL Neut % (Auto) 50.9 (48.0-80.0) % Lymph % (Auto) 37.0 (16.0-40.0) % Pettis % (Auto) 9.2 (0.0-15.0) % Eos % (Auto) 2.6 (0.0-7.0) % Baso % (Auto) 0.3 (0.0-1.5) % Neut # (Auto) 3.3 (1.4-5.7) K/uL Lymph # (Auto) 2.4 (0.6-2.4) K/uL Pettis # (Auto) 0.6 (0.0-0.8) K/uL Eos # (Auto) 0.2 (0.0-0.7) K/uL Baso # (Auto) 0.0 (0.0-0.1) K/uL Nucleated RBC % 0.0 /100WBC Nucleated RBCs # 0 K/uL INR Sodium 140 (136-145) mmol/L Potassium 4.2 (3.5-5.1) mmol/L Chloride 104 (98-107) mmol/L Carbon Dioxide 28.0 (21.0-32.0) mmol/L BUN 16 (7.0-18.0) mg/dL Creatinine 0.9 (0.6-1.0) mg/dL Est Cr Clr Drug Dosing 57.40 mL/min Estimated GFR (MDRD) > 60.0 ml/min Glucose 138 H (74-106) mg/dL POC Glucose 111 H (70-99) mg/dL Calcium 8.8 (8.5-10.1) mg/dL Phosphorus 4.0 (2.6-4.7) mg/dL Magnesium 1.5 L (1.8-2.4) mg/dL Troponin I (0.000-0.056) ng/mL Lipase (73-393) U/L Urine Color Urine Appearance Urine pH (5.0-8.0) Ur Specific Purling (1.001-1.035) Urine Protein (NEGATIVE) mg/dL Urine Glucose (UA) (NEGATIVE) mg/dL Urine Ketones (NEGATIVE) mg/dL Urine Occult Blood (NEGATIVE) Urine Nitrite (NEGATIVE) Urine Bilirubin (NEGATIVE) Urine Urobilinogen (<2.0) EU/dL Ur Leukocyte Esterase (NEGATIVE) Urine RBC (0-2/HPF) Urine WBC (0-5/HPF) Ur Epithelial Cells (NONE-FEW) Amorphous Sediment (NEGATIVE) Urine Bacteria (NEGATIVE) Urine Mucus (NONE-MOD) SARS-CoV-2 RNA (REYNOLD) (NEGATIVE) Blood Type Antibody Screen Crossmatch Med Orders - Current: Current Medications Albuterol/Ipratropium (Albuterol/Ipratropium 3.0-0.5 Mg/3 Ml Neb Soln) 3 ml NEB Q4HRRT PRN PRN Reason: Shortness Of Breath/wheezing Dextrose/Water (50% Dextrose In Water 50 Ml Syringe) 50 ml IV ASDIRECTED PRN PRN Reason: Hypoglycemia Last Admin: 01/27/21 01:45 Dose: 50 ml Documented by: Glucagon (Glucagon,Human Recombinant 1 Mg Vial) 1 mg IM ASDIRECTED PRN PRN Reason: Hypoglycemia Ceftriaxone Sodium/Dextrose (Rocephin In Dextrose,Iso-Osm 1 Gm/50 Ml) 50 mls @ 100 mls/hr IV Q24H ON LICENSE OF [facility] Last Admin: 01/27/21 08:53 Dose: 100 mls/hr Documented by: Dextrose/Lactated Ringer's (Dextrose 5%-Lactated Ringers) 1,000 mls @ 100 mls/hr IV ASDIRECTED ON LICENSE OF [facility] Last Admin: 01/27/21 10:43 Dose: 100 mls/hr Documented by: Magnesium Sulfate 2 gm/ Premix 50 mls @ 12.5 mls/hr IV ONETIME ONE Stop: 01/27/21 13:49 Last Admin: 01/27/21 10:43 Dose: 12.5 mls/hr Documented by: Insulin Aspart (Insulin Aspart 100 Units/Ml 3 Ml Pen) 0 unit SUBCUT Q6H ON LICENSE OF [facility]; Protocol Last Admin: 01/27/21 05:38 Dose: Not Given Documented by: Ondansetron HCl (Ondansetron 4 Mg/2 Ml Sdv) 4 mg IVPUSH Q4H PRN PRN Reason: Nausea/Vomiting Pantoprazole Sodium (Pantoprazole 40 Mg Vial) 40 mg IV Q12HR ON LICENSE OF [facility] Last Admin: 01/27/21 08:52 Dose: 40 mg Documented by: Sucralfate (Sucralfate Suspension 1 Gm/10 Ml Cup) 1 gm PO Q6H ON LICENSE OF [facility] Last Admin: 01/27/21 05:38 Dose: 1 gm Documented by: Discontinued Medications Pantoprazole Sodium 80 mg/ (Sodium Chloride) 20 mls @ 420 mls/hr IVPUSH ONETIME ONE Stop: 01/26/21 21:42 Last Admin: 01/26/21 22:59 Dose: 420 mls/hr Documented by: Ceftriaxone Sodium/Dextrose 1 (gm/ Premix) 50 mls @ 100 mls/hr IV ONETIME ONE Stop: 01/26/21 22:20 Last Admin: 01/26/21 22:59 Dose: 100 mls/hr Documented by: Lactated Ringer's (Ringers, Lactated) 1,000 mls @ 125 mls/hr IV ASDIRECTED JOSE Last Infusion: 01/27/21 01:45 Dose: 0 mls/hr Documented by: Dextrose/Lactated Ringer's (Dextrose 5%-Lactated Ringers) 1,000 mls @ 125 ml s/hr IV ASDIRECTED JOSE Stop: 01/27/21 09:44 Last Admin: 01/27/21 01:49 Dose: 125 mls/hr Documented by: Sepsis Event Note - Evaluation Sepsis Screening Result: No Definite Risk - Focused Exam Vital Signs: Vital Signs Temp Pulse Resp BP Pulse Ox Pulse Ox 01/27/21 08:00 96.8 F L 83 20 150/70 H 96 01/27/21 03:48 96.4 F L 82 18 162/70 H 93 L 01/27/21 00:13 95 01/27/21 00:09 96.4 F L 88 18 164/79 H 95 - Problem List Review Problem List Initiated/Reviewed/Updated: Yes - My Orders Last 24 Hours: Active Orders 24 hr Category Date Time Status Admission Status [Patient Status] [ADT] Stat ADT 01/26/21 21:50 Active Ambulate [RC] ASDIRECTED Care 01/26/21 23:01 Active Antiembolic Devices [RC] PER UNIT ROUTINE Care 01/26/21 23:03 Active EKG Documentation Completion [RC] STAT Care 01/26/21 18:48 Active Oxygen Therapy [RC] PRN Care 01/26/21 23:01 Active RT Aerosol Therapy [RC] ASDIRECTED Care 01/26/21 23:03 Active Telemetry Monitoring [Cardiac Monitoring] [RC] Q8H Care 01/26/21 23:07 Active VTE/DVT Education [RC] PER UNIT ROUTINE Care 01/26/21 23:01 Active Verify Patient Consent Obtain [RC] ASDIRECTED Care 01/26/21 18:49 Active Vital Signs [RC] Q4H Care 01/26/21 23:01 Active Consult to Physician [CONS] Stat Cons 01/26/21 21:49 Active Full Liquid Diet [DIET] Diet 01/27/21 Lunch Active C DIFFICILE AG/TOXIN W/REFLEX [RM] Routine Lab 01/26/21 22:58 Ordered CULTURE URINE [MREF] Stat Lab 01/26/21 18:50 Received Albuterol/Ipratropium [DuoNeb 3.0-0.5 MG/3 ML] Med 01/26/21 23:01 Active 3 ml NEB Q4HRRT PRN Dextrose 5%-Lactated Ringers 1,000 ml Med 01/27/21 07:45 Active IV ASDIRECTED Dextrose 50% in Water Med 01/26/21 23:06 Active 50 ml IV ASDIRECTED PRN Glucagon,Human Recombinant [GlucaGen] Med 01/26/21 23:06 Active 1 mg IM ASDIRECTED PRN Insulin Aspart [NovoLOG] Med 01/26/21 23:15 Active See Protocol SUBCUT Q6H Magnesium Sulfate/Water [Magnesium Sulfate in Water 2 Med 01/27/21 09:50 Active GM/50 ML] 2 gm Premix Bag 1 bag IV ONETIME Ondansetron [Zofran] Med 01/26/21 23:01 Active 4 mg IVPUSH Q4H PRN Pantoprazole [ProTONIX IV] Med 01/27/21 09:00 Active 40 mg IV Q12HR Sucralfate [Carafate] Med 01/27/21 00:15 Active 1 gm PO Q6H cefTRIAXone [Rocephin in Dextrose,Iso-Osm 1 GM/50 ML] Med 01/27/21 09:00 Active 50 ml IV Q24H Sequential Compression Device [OM.PC] Per Unit Routine Oth 01/26/21 23:01 Ordered Transfuse Red Blood Cells [COMM] Stat Oth 01/26/21 18:49 Ordered Medication Orders Albuterol/Ipratropium (Albuterol/Ipratropium 3.0-0.5 Mg/3 Ml Neb Soln) 3 ml NEB Q4HRRT PRN PRN Reason: Shortness Of Breath/wheezing Dextrose/Water (50% Dextrose In Water 50 Ml Syringe) 50 ml IV ASDIRECTED PRN PRN Reason: Hypoglycemia Last Admin: 01/27/21 01:45 Dose: 50 ml Documented by: MARQUIS Glucagon (Glucagon,Human Recombinant 1 Mg Vial) 1 mg IM ASDIRECTED PRN PRN Reason: Hypoglycemia Ceftriaxone Sodium/Dextrose (Rocephin In Dextrose,Iso-Osm 1 Gm/50 Ml) 50 mls @ 100 mls/hr IV Q24H ON LICENSE OF [facility] Last Admin: 01/27/21 08:53 Dose: 100 mls/hr Documented by: PITER Dextrose/Lactated Ringer's (Dextrose 5%-Lactated Ringers) 1,000 mls @ 100 mls/hr IV ASDIRECTED ON LICENSE OF [facility] Last Admin: 01/27/21 10:43 Dose: 100 mls/hr Documented by: PITER Magnesium Sulfate 2 gm/ Premix 50 mls @ 12.5 mls/hr IV ONETIME ONE Stop: 01/27/21 13:49 Last Admin: 01/27/21 10:43 Dose: 12.5 mls/hr Documented by: PITER Insulin Aspart (Insulin Aspart 100 Units/Ml 3 Ml Pen) 0 unit SUBCUT Q6H ON LICENSE OF [facility]; Protocol Last Admin: 01/27/21 05:38 Dose: Not Given Documented by: Admin: 01/27/21 01:54 Dose: Not Given Documented by: MARQUIS Ondansetron HCl (Ondansetron 4 Mg/2 Ml Sdv) 4 mg IVPUSH Q4H PRN PRN Reason: Nausea/Vomiting Pantoprazole Sodium (Pantoprazole 40 Mg Vial) 40 mg IV Q12HR ON LICENSE OF [facility] Last Admin: 01/27/21 08:52 Dose: 40 mg Documented by: PITER Sucralfate (Sucralfate Suspension 1 Gm/10 Ml Cup) 1 gm PO Q6H ON LICENSE OF [facility] Last Admin: 01/27/21 05:38 Dose: 1 gm Documented by: Admin: 01/27/21 01:05 Dose: 1 gm Documented by: MARQUIS - Assessment Assessment (Free Text/Narrative):: doing well post transfusion; much energetic, abd pain resolved; hungry; h/h increase 1 digit after 1 RBC transfusion, no hard core sign of active gib; feed, home; fu W dr. Ramos and endoscope as recommended; in consideration of recurrent gastric ulcer 2 X in 2 years, pt may benefit from as outpation, hem/onc consult or/and gastric bypass surgery fu; will sign off; recall if question; thanks for the consult and care of this pleasant patient - Plan Plan (Free Text/Narrative):: doing well post transfusion; much energetic, abd pain resolved; hungry; h/h increase 1 digit after 1 RBC transfusion, no hard core sign of active gib; feed, home; fu W dr. Ramos and endoscope as recommended; in consideration of recurrent gastric ulcer 2 X in 2 years, pt may benefit from as outpation, hem/onc consult or/and gastric bypass surgery fu; will sign off; recall if question; thanks for the consult and care of this pleasant patient
[2021-01-27] MEDS ORDERED: tiZANidine 4 MG Tab PO PRN (11:11)
--- NOTE | 2021-01-27 13:28 | CONS ---
DATE OF CONSULTATION: 01/26/2021 DATE OF : 1960 PRIMARY CARE PHYSICIAN: CLAUDIA MESSINA MD CONSULTING QUESTION: GI bleeding. HISTORY OF PRESENT ILLNESS: The patient is a 60-year-old obese lady, had a history of gastric ulcer 2 years ago, October 26, 2018, and was recommended after discharge to have a followup with surgery for EGD and it did not happen. The patient now presents to emergency room on January 22 with problems of abdominal pain, nausea, vomiting, and apparently black tarry stool. Four days ago, she was sent out with a PPI because CAT scan shows a gastric ulcer and inflammation, and follow up with General Surgery. Four days later, when followed with General Surgery, Dr. Ramos, she recommended EGD examination. At the same time, also note that the patient was pale. Got some blood work done and was noted that the patient dropped from 9.8 to 8.7 in 4 days. The patient was seen in emergency room, got one blood transfusion, and Surgery was then consulted. 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 Denied MA. The patient is a diabetic. Hypertension. ALLERGIES TO MEDICATION: Please refer to Nursing for details. SURGERY HISTORY: As dictated before. FAMILY HISTORY: Noncontributory. PHYSICAL EXAMINATION: GENERAL: A very pleasant lady, smiled to the doctor, in no acute distress. HEENT: Normocephalic, atraumatic. Sclerae anicteric. LUNGS: Clear to auscultation. HEART: Regular rate and rhythm. ABDOMEN: Soft, nondistended. No pulsating, tender, midline abdominal structure. Mild subjective tenderness at the epigastrium. No rebound tenderness and all active bowel sounds. LABORATORY VALUES: Upon consultation, hemoglobin was 8.6, which is no change from office visit. At that time was 8.7. Platelets are 417. BUN is 23 and creatinine is 1.2. INR is 0.94. The patient's UA shows a possible UTI. COVID-19 was negative. ASSESSMENT AND PLANNING: Recurrent gastric ulcer from CAT scan and becoming anemic and reportedly had near syncope episodes in office. The patient would benefit from admission with gastrointestinal bleeding protocol, 2 large-bore intravenous access, and monitor urine output. N.p.o. Avoid anticoagulation and transfuse to about hemoglobin 10. We will follow the patient with you. As always, thank you for the kind referral. JOJO LYN /[id number] MTDNick
--- NOTE | 2021-01-27 13:32 | PCM.DCSUM1 ---
<Ganesh Ridley - Last Filed: 01/27/21 13:32> Discharge Summary - Hospital Course Diagnosis: Stroke: No - Discharge Data Discharge Date: 01/27/21 Discharge Disposition: Home, Self-Care 01 Condition: Stable - Referral to Home Health Primary Care Physician: Han Martinez MD - Discharge Diagnosis/Problem(s) (1) Syncopal episodes SNOMED Code(s): 399443461 ICD Code: R55 - SYNCOPE AND COLLAPSE Status: Acute (2) Gastric ulcer SNOMED Code(s): 724785196 ICD Code: K25.9 - GASTRIC ULCER, UNSP ACUTE OR CHRONIC, W/O HEMOR OR PERF Status: Acute Qualifiers: Gastric ulcer chronicity: unspecified ulcer chronicity Gastric ulcer complication status: unspecified whether hemorrhage or perforation present Qualified Code(s): K25.9 - Gastric ulcer, unspecified as acute or chronic, without hemorrhage or perforation (3) Symptomatic anemia SNOMED Code(s): 517743541 ICD Code: D64.9 - ANEMIA, UNSPECIFIED Status: Acute (4) Urinary tract infection SNOMED Code(s): 72731395 ICD Code: N39.0 - URINARY TRACT INFECTION, SITE NOT SPECIFIED Status: Acute Qualifiers: Urinary tract infection type: acute cystitis Hematuria presence: without hematuria Qualified Code(s): N30.00 - Acute cystitis without hematuria (5) Diarrhea SNOMED Code(s): 18777051 ICD Code: R19.7 - DIARRHEA, UNSPECIFIED Status: Acute - Patient Summary/Data Consults: Consultations 01/26/21 21:49 Consult to Physician [CONS] Stat - Patient Instructions Diet: Diabetic Diet Activity: As Tolerated Driving: May Drive Today Showering/Bathing: May Shower Notify Provider of: Fever, Increased Pain, Swelling and Redness, Drainage, Nausea and/or Vomiting Other/Special Instructions: return to ed if dark or bloody stools noted, - Discharge Plan *PRESCRIPTION DRUG MONITORING PROGRAM REVIEWED*: No *COPY OF PRESCRIPTION DRUG MONITORING REPORT IN PATIENT [place]: No Prescriptions/Med Rec: Sucralfate [Carafate] 1 gm PO Q12H #20 cup Nitrofurantoin Monohyd/M-Cryst [Macrobid 100 mg Capsule] 100 mg PO BID #5 capsule Home Medications: Home Meds Dicyclomine HCl [Bentyl] 1 tab QID PRN 10/16/18 [History] Gabapentin [Neurontin] 1 tab BID 10/16/18 [History] Insulin Glargine,Hum.Rec.Anlog [Touleeanne Solostar] 45 unit SQ BEDTIME 10/16/18 [History] Metoprolol Tartrate 50 mg PO BEDTIME 10/16/18 [History] Metoprolol Tartrate 50 mg PO DAILY 10/16/18 [History] atorvaSTATin Calcium [Atorvastatin Calcium] 40 mg PO BEDTIME 10/16/18 [History] Ondansetron [Zofran ODT] 4 mg PO Q6H PRN #14 tab.dis 01/22/21 [Rx] DULoxetine HCl [Duloxetine HCl] 60 mg PO BID 01/27/21 [History] Gabapentin [Neurontin] 800 mg PO TID 01/27/21 [History] Nitrofurantoin Monohyd/M-Cryst [Macrobid 100 mg Capsule] 100 mg PO BID #5 capsule 01/27/21 [Rx] Pantoprazole Sodium [Protonix] 40 mg PO BID 01/27/21 [History] Promethazine HCl 25 mg PO BID 01/27/21 [History] Sucralfate [Carafate] 1 gm PO Q12H #20 cup 01/27/21 [Rx] lisinopriL [Lisinopril] 20 mg PO DAILY 01/27/21 [History] metFORMIN HCl [Metformin HCl ER] 2,000 mg PO BEDTIME 01/27/21 [History] tiZANidine HCl [Tizanidine HCl] 4 mg PO QID PRN 01/27/21 [History] Patient Handouts: Nitrofurantoin tablets or capsules, Peptic Ulcer, [id number], Sucralfate tablets Referrals: Darby Ramos MD [Physician] - Han Martinez MD [Primary Care Provider] - - Patient Data Vitals - Most Recent: Last Vital Signs Temp 36 C L 01/27/21 12:00 Pulse 85 01/27/21 12:00 Resp 20 01/27/21 12:00 BP 143/72 H 01/27/21 12:00 Pulse Ox 96 01/27/21 12:00 Weight - Most Recent: 85.275 kg I&O - Last 24 hours: Intake & Output 01/26/21 01/27/21 01/27/21 22:59 06:59 14:59 Output Total 1600 Balance -1600 Lab Results - Last 24 hrs: Laboratory Results - last 24 hr 01/26/21 01/26/21 01/26/21 Range/Units 14:51 17:20 17:20 WBC (4.0-11.0) K/uL RBC (4.30-5.90) M/uL Hgb 8.6 L (12.0-16.0) g/dL Hct 26.7 L (36.0-46.0) % MCV (80.0-98.0) fL MCH (27.0-32.0) pg MCHC (31.0-37.0) g/dL RDW Std Deviation (28.0-62.0) fl RDW Coeff of Paul (11.0-15.0) % Plt Count (150-400) K/uL MPV (7.40-12.00) fL Neut % (Auto) (48.0-80.0) % Lymph % (Auto) (16.0-40.0) % [place] % (Auto) (0.0-15.0) % Eos % (Auto) (0.0-7.0) % Baso % (Auto) (0.0-1.5) % Neut # (Auto) (1.4-5.7) K/uL Lymph # (Auto) (0.6-2.4) K/uL [place] # (Auto) (0.0-0.8) K/uL Eos # (Auto) (0.0-0.7) K/uL Baso # (Auto) (0.0-0.1) K/uL Nucleated RBC % /100WBC Nucleated RBCs # K/uL INR 0.94 Sodium (136-145) mmol/L Potassium (3.5-5.1) mmol/L Chloride (98-107) mmol/L Carbon Dioxide (21.0-32.0) mmol/L BUN (7.0-18.0) mg/dL Creatinine (0.6-1.0) mg/dL Est Cr Clr Drug Dosing mL/min Estimated GFR (MDRD) ml/min Glucose (74-106) mg/dL POC Glucose (70-99) mg/dL Calcium (8.5-10.1) mg/dL Phosphorus (2.6-4.7) mg/dL Magnesium (1.8-2.4) mg/dL Troponin I < 0.050 (0.000-0.056) ng/mL Lipase (73-393) U/L Urine Color Urine Appearance Urine pH (5.0-8.0) Ur Specific [place] (1.001-1.035) Urine Protein (NEGATIVE) mg/dL Urine Glucose (UA) (NEGATIVE) mg/dL Urine Ketones (NEGATIVE) mg/dL Urine Occult Blood (NEGATIVE) Urine Nitrite (NEGATIVE) Urine Bilirubin (NEGATIVE) Urine Urobilinogen (<2.0) EU/dL Ur Leukocyte Esterase (NEGATIVE) Urine RBC (0-2/HPF) Urine WBC (0-5/HPF) Ur Epithelial Cells (NONE-FEW) Amorphous Sediment (NEGATIVE) Urine Bacteria (NEGATIVE) Urine Mucus (NONE-MOD) SARS-CoV-2 RNA (REYNOLD) (NEGATIVE) Blood Type Antibody Screen Crossmatch 01/26/21 01/26/21 01/26/21 Range/Units 17:20 18:05 18:50 WBC (4.0-11.0) K/uL RBC (4.30-5.90) M/uL Hgb (12.0-16.0) g/dL Hct (36.0-46.0) % MCV (80.0-98.0) fL MCH (27.0-32.0) pg MCHC (31.0-37.0) g/dL RDW Std Deviation (28.0-62.0) fl RDW Coeff of Paul (11.0-15.0) % Plt Count (150-400) K/uL MPV (7.40-12.00) fL Neut % (Auto) (48.0-80.0) % Lymph % (Auto) (16.0-40.0) % [place] % (Auto) (0.0-15.0) % Eos % (Auto) (0.0-7.0) % Baso % (Auto) (0.0-1.5) % Neut # (Auto) (1.4-5.7) K/uL Lymph # (Auto) (0.6-2.4) K/uL [place] # (Auto) (0.0-0.8) K/uL Eos # (Auto) (0.0-0.7) K/uL Baso # (Auto) (0.0-0.1) K/uL Nucleated RBC % /100WBC Nucleated RBCs # K/uL INR Sodium (136-145) mmol/L Potassium (3.5-5.1) mmol/L Chloride (98-107) mmol/L Carbon Dioxide (21.0-32.0) mmol/L BUN (7.0-18.0) mg/dL Creatinine (0.6-1.0) mg/dL Est Cr Clr Drug Dosing mL/min Estimated GFR (MDRD) ml/min Glucose (74-106) mg/dL POC Glucose (70-99) mg/dL Calcium (8.5-10.1) mg/dL Phosphorus (2.6-4.7) mg/dL Magnesium (1.8-2.4) mg/dL Troponin I (0.000-0.056) ng/mL Lipase 89 (73-393) U/L Urine Color YELLOW Urine Appearance SLT CLOUDY Urine pH 5.5 (5.0-8.0) Ur Specific [place] 1.025 (1.001-1.035) Urine Protein NEGATIVE (NEGATIVE) mg/dL Urine Glucose (UA) NEGATIVE (NEGATIVE) mg/dL Urine Ketones NEGATIVE (NEGATIVE) mg/dL Urine Occult Blood NEGATIVE (NEGATIVE) Urine Nitrite POSITIVE H (NEGATIVE) Urine Bilirubin NEGATIVE (NEGATIVE) Urine Urobilinogen 0.2 (<2.0) EU/dL Ur Leukocyte Esterase MODERATE H (NEGATIVE) Urine RBC 0-2 (0-2/HPF) Urine WBC 35-40 (0-5/HPF) Ur Epithelial Cells OCCASIONAL (NONE-FEW) Amorphous Sediment FEW (NEGATIVE) Urine Bacteria 2+ H (NEGATIVE) Urine Mucus FEW (NONE-MOD) SARS-CoV-2 RNA (REYNOLD) (NEGATIVE) Blood Type A POSITIVE Antibody Screen NEGATIVE Crossmatch See Detail 01/26/21 01/27/21 01/27/21 Range/Units 23:05 01:10 02:20 WBC (4.0-11.0) K/uL RBC (4.30-5.90) M/uL Hgb (12.0-16.0) g/dL Hct (36.0-46.0) % MCV (80.0-98.0) fL MCH (27.0-32.0) pg MCHC (31.0-37.0) g/dL RDW Std Deviation (28.0-62.0) fl RDW Coeff of Paul (11.0-15.0) % Plt Count (150-400) K/uL MPV (7.40-12.00) fL Neut % (Auto) (48.0-80.0) % Lymph % (Auto) (16.0-40.0) % [place] % (Auto) (0.0-15.0) % Eos % (Auto) (0.0-7.0) % Baso % (Auto) (0.0-1.5) % Neut # (Auto) (1.4-5.7) K/uL Lymph # (Auto) (0.6-2.4) K/uL [place] # (Auto) (0.0-0.8) K/uL Eos # (Auto) (0.0-0.7) K/uL Baso # (Auto) (0.0-0.1) K/uL Nucleated RBC % /100WBC Nucleated RBCs # K/uL INR Sodium (136-145) mmol/L Potassium (3.5-5.1) mmol/L Chloride (98-107) mmol/L Carbon Dioxide (21.0-32.0) mmol/L BUN (7.0-18.0) mg/dL Creatinine (0.6-1.0) mg/dL Est Cr Clr Drug Dosing mL/min Estimated GFR (MDRD) ml/min Glucose (74-106) mg/dL POC Glucose 54 L 180 H (70-99) mg/dL Calcium (8.5-10.1) mg/dL Phosphorus (2.6-4.7) mg/dL Magnesium (1.8-2.4) mg/dL Troponin I (0.000-0.056) ng/mL Lipase (73-393) U/L Urine Color Urine Appearance Urine pH (5.0-8.0) Ur Specific [place] (1.001-1.035) Urine Protein (NEGATIVE) mg/dL Urine Glucose (UA) (NEGATIVE) mg/dL Urine Ketones (NEGATIVE) mg/dL Urine Occult Blood (NEGATIVE) Urine Nitrite (NEGATIVE) Urine Bilirubin (NEGATIVE) Urine Urobilinogen (<2.0) EU/dL Ur Leukocyte Esterase (NEGATIVE) Urine RBC (0-2/HPF) Urine WBC (0-5/HPF) Ur Epithelial Cells (NONE-FEW) Amorphous Sediment (NEGATIVE) Urine Bacteria (NEGATIVE) Urine Mucus (NONE-MOD) SARS-CoV-2 RNA (REYNOLD) NEGATIVE (NEGATIVE) Blood Type Antibody Screen Crossmatch 01/27/21 01/27/21 01/27/21 Range/Units 05:10 05:10 05:36 WBC 6.54 (4.0-11.0) K/uL RBC 3.17 L (4.30-5.90) M/uL Hgb 9.5 L (12.0-16.0) g/dL Hct 29.5 L (36.0-46.0) % MCV 93.1 (80.0-98.0) fL MCH 30.0 (27.0-32.0) pg MCHC 32.2 (31.0-37.0) g/dL RDW Std Deviation 49.5 (28.0-62.0) fl RDW Coeff of Paul 15 (11.0-15.0) % Plt Count 311 (150-400) K/uL MPV 9.00 (7.40-12.00) fL Neut % (Auto) 50.9 (48.0-80.0) % Lymph % (Auto) 37.0 (16.0-40.0) % [place] % (Auto) 9.2 (0.0-15.0) % Eos % (Auto) 2.6 (0.0-7.0) % Baso % (Auto) 0.3 (0.0-1.5) % Neut # (Auto) 3.3 (1.4-5.7) K/uL Lymph # (Auto) 2.4 (0.6-2.4) K/uL [place] # (Auto) 0.6 (0.0-0.8) K/uL Eos # (Auto) 0.2 (0.0-0.7) K/uL Baso # (Auto) 0.0 (0.0-0.1) K/uL Nucleated RBC % 0.0 /100WBC Nucleated RBCs # 0 K/uL INR Sodium 140 (136-145) mmol/L Potassium 4.2 (3.5-5.1) mmol/L Chloride 104 (98-107) mmol/L Carbon Dioxide 28.0 (21.0-32.0) mmol/L BUN 16 (7.0-18.0) mg/dL Creatinine 0.9 (0.6-1.0) mg/dL Est Cr Clr Drug Dosing 57.40 mL/min Estimated GFR (MDRD) > 60.0 ml/min Glucose 138 H (74-106) mg/dL POC Glucose 111 H (70-99) mg/dL Calcium 8.8 (8.5-10.1) mg/dL Phosphorus 4.0 (2.6-4.7) mg/dL Magnesium 1.5 L (1.8-2.4) mg/dL Troponin I (0.000-0.056) ng/mL Lipase (73-393) U/L Urine Color Urine Appearance Urine pH (5.0-8.0) Ur Specific [place] (1.001-1.035) Urine Protein (NEGATIVE) mg/dL Urine Glucose (UA) (NEGATIVE) mg/dL Urine Ketones (NEGATIVE) mg/dL Urine Occult Blood (NEGATIVE) Urine Nitrite (NEGATIVE) Urine Bilirubin (NEGATIVE) Urine Urobilinogen (<2.0) EU/dL Ur Leukocyte Esterase (NEGATIVE) Urine RBC (0-2/HPF) Urine WBC (0-5/HPF) Ur Epithelial Cells (NONE-FEW) Amorphous Sediment (NEGATIVE) Urine Bacteria (NEGATIVE) Urine Mucus (NONE-MOD) SARS-CoV-2 RNA (REYNOLD) (NEGATIVE) Blood Type Antibody Screen Crossmatch 01/27/21 Range/Units 11:41 WBC (4.0-11.0) K/uL RBC (4.30-5.90) M/uL Hgb (12.0-16.0) g/dL Hct (36.0-46.0) % MCV (80.0-98.0) fL MCH (27.0-32.0) pg MCHC (31.0-37.0) g/dL RDW Std Deviation (28.0-62.0) fl RDW Coeff of Paul (11.0-15.0) % Plt Count (150-400) K/uL MPV (7.40-12.00) fL Neut % (Auto) (48.0-80.0) % Lymph % (Auto) (16.0-40.0) % [place] % (Auto) (0.0-15.0) % Eos % (Auto) (0.0-7.0) % Baso % (Auto) (0.0-1.5) % Neut # (Auto) (1.4-5.7) K/uL Lymph # (Auto) (0.6-2.4) K/uL [place] # (Auto) (0.0-0.8) K/uL Eos # (Auto) (0.0-0.7) K/uL Baso # (Auto) (0.0-0.1) K/uL Nucleated RBC % /100WBC Nucleated RBCs # K/uL INR Sodium (136-145) mmol/L Potassium (3.5-5.1) mmol/L Chloride (98-107) mmol/L Carbon Dioxide (21.0-32.0) mmol/L BUN (7.0-18.0) mg/dL Creatinine (0.6-1.0) mg/dL Est Cr Clr Drug Dosing mL/min Estimated GFR (MDRD) ml/min Glucose (74-106) mg/dL POC Glucose 117 H (70-99) mg/dL Calcium (8.5-10.1) mg/dL Phosphorus (2.6-4.7) mg/dL Magnesium (1.8-2.4) mg/dL Troponin I (0.000-0.056) ng/mL Lipase (73-393) U/L Urine Color Urine Appearance Urine pH (5.0-8.0) Ur Specific [place] (1.001-1.035) Urine Protein (NEGATIVE) mg/dL Urine Glucose (UA) (NEGATIVE) mg/dL Urine Ketones (NEGATIVE) mg/dL Urine Occult Blood (NEGATIVE) Urine Nitrite (NEGATIVE) Urine Bilirubin (NEGATIVE) Urine Urobilinogen (<2.0) EU/dL Ur Leukocyte Esterase (NEGATIVE) Urine RBC (0-2/HPF) Urine WBC (0-5/HPF) Ur Epithelial Cells (NONE-FEW) Amorphous Sediment (NEGATIVE) Urine Bacteria (NEGATIVE) Urine Mucus (NONE-MOD) SARS-CoV-2 RNA (REYNOLD) (NEGATIVE) Blood Type Antibody Screen Crossmatch Med Orders - Current: Current Medications Albuterol/Ipratropium (Albuterol/Ipratropium 3.0-0.5 Mg/3 Ml Neb Soln) 3 ml NEB Q4HRRT PRN PRN Reason: Shortness Of Breath/wheezing Atorvastatin Calcium (Atorvastatin 40 Mg Tab) 40 mg PO BEDTIME JOSE Dextrose/Water (50% Dextrose In Water 50 Ml Syringe) 50 ml IV ASDIRECTED PRN PRN Reason: Hypoglycemia Last Admin: 01/27/21 01:45 Dose: 50 ml Documented by: Gabapentin (Gabapentin 800 Mg Tab) 800 mg PO TID [facility] Last Admin: 01/27/21 13:09 Dose: 800 mg Documented by: Glucagon (Glucagon,Human Recombinant 1 Mg Vial) 1 mg IM ASDIRECTED PRN PRN Reason: Hypoglycemia Ceftriaxone Sodium/Dextrose (Rocephin In Dextrose,Iso-Osm 1 Gm/50 Ml) 50 mls @ 100 mls/hr IV Q24H [facility] Last Admin: 01/27/21 08:53 Dose: 100 mls/hr Documented by: Dextrose/Lactated Ringer's (Dextrose 5%-Lactated Ringers) 1,000 mls @ 100 mls/hr IV ASDIRECTED JOSE Last Admin: 01/27/21 10:43 Dose: 100 mls/hr Documented by: Magnesium Sulfate 2 gm/ Premix 50 mls @ 12.5 mls/hr IV ONETIME ONE Stop: 01/27/21 13:49 Last Admin: 01/27/21 10:43 Dose: 12.5 mls/hr Documented by: Insulin Aspart (Insulin Aspart 100 Units/Ml 3 Ml Pen) 0 unit SUBCUT Q6H [facility]; Protocol Last Admin: 01/27/21 12:10 Dose: Not Given Documented by: Lisinopril (Lisinopril 10 Mg Tab) 20 mg PO DAILY [facility] Ondansetron HCl (Ondansetron 4 Mg/2 Ml Sdv) 4 mg IVPUSH Q4H PRN PRN Reason: Nausea/Vomiting Pantoprazole Sodium (Pantoprazole 40 Mg Vial) 40 mg IV Q12HR [facility] Last Admin: 01/27/21 08:52 Dose: 40 mg Documented by: Sucralfate (Sucralfate Suspension 1 Gm/10 Ml Cup) 1 gm PO Q6H JOSE Last Admin: 01/27/21 13:09 Dose: 1 gm Documented by: Tizanidine HCl (Tizanidine 4 Mg Tab) 4 mg PO QID PRN PRN Reason: SPASMS Discontinued Medications Pantoprazole Sodium 80 mg/ (Sodium Chloride) 20 mls @ 420 mls/hr IVPUSH ONETIME ONE Stop: 01/26/21 21:42 Last Admin: 01/26/21 22:59 Dose: 420 mls/hr Documented by: Ceftriaxone Sodium/Dextrose 1 (gm/ Premix) 50 mls @ 100 mls/hr IV ONETIME ONE Stop: 01/26/21 22:20 Last Admin: 01/26/21 22:59 Dose: 100 mls/hr Documented by: Lactated Ringer's (Ringers, Lactated) 1,000 mls @ 125 mls/hr IV ASDIRECTED JOSE Last Infusion: 01/27/21 01:45 Dose: 0 mls/hr Documented by: Dextrose/Lactated Ringer's (Dextrose 5%-Lactated Ringers) 1,000 mls @ 125 mls/hr IV ASDIRECTED JOSE Stop: 01/27/21 09:44 Last Admin: 01/27/21 01:49 Dose: 125 mls/hr Documented by: <Tevin Moon - Last Filed: 01/31/21 08:17> Discharge Summary - Referral to Home Health Primary Care Physician: Han Martinez MD - Patient Summary/Data Consults: Consultations 01/26/21 21:49 Consult to Physician [CONS] Stat - Patient Data Vitals - Most Recent: Last Vital Signs Temp 36 C L 01/27/21 12:00 Pulse 85 01/27/21 12:00 Resp 20 01/27/21 12:00 BP 143/72 H 01/27/21 12:00 Pulse Ox 96 01/27/21 12:00 Med Orders - Current: Current Medications Discontinued Medications Albuterol/Ipratropium (Albuterol/Ipratropium 3.0-0.5 Mg/3 Ml Neb Soln) 3 ml NEB Q4HRRT PRN PRN Reason: Shortness Of Breath/wheezing Atorvastatin Calcium (Atorvastatin 40 Mg Tab) 40 mg PO BEDTIME JOSE Dextrose/Water (50% Dextrose In Water 50 Ml Syringe) 50 ml IV ASDIRECTED PRN PRN Reason: Hypoglycemia Last Admin: 01/27/21 01:45 Dose: 50 ml Documented by: Gabapentin (Gabapentin 800 Mg Tab) 800 mg PO TID [facility] Last Admin: 01/27/21 13:09 Dose: 800 mg Documented by: Glucagon (Glucagon,Human Recombinant 1 Mg Vial) 1 mg IM ASDIRECTED PRN PRN Reason: Hypoglycemia Pantoprazole Sodium 80 mg/ (Sodium Chloride) 20 mls @ 420 mls/hr IVPUSH ONETIME ONE Stop: 01/26/21 21:42 Last Admin: 01/26/21 22:59 Dose: 420 mls/hr Documented by: Ceftriaxone Sodium/Dextrose 1 (gm/ Premix) 50 mls @ 100 mls/hr IV ONETIME ONE Stop: 01/26/21 22:20 Last Admin: 01/26/21 22:59 Dose: 100 mls/hr Documented by: Lactated Ringer's (Ringers, Lactated) 1,000 mls @ 125 mls/hr IV ASDIRECTED [facility] Last Infusion: 01/27/21 01:45 Dose: 0 mls/hr Documented by: Ceftriaxone Sodium/Dextrose (Rocephin In Dextrose,Iso-Osm 1 Gm/50 Ml) 50 mls @ 100 mls/hr IV Q24H [facility] Last Admin: 01/27/21 08:53 Dose: 100 mls/hr Documented by: Dextrose/Lactated Ringer's (Dextrose 5%-Lactated Ringers) 1,000 mls @ 125 mls/hr IV ASDIRECTED [facility] Stop: 01/27/21 09:44 Last Admin: 01/27/21 01:49 Dose: 125 mls/hr Documented by: Dextrose/Lactated Ringer's (Dextrose 5%-Lactated Ringers) 1,000 mls @ 100 mls/hr IV ASDIRECTED [facility] Last Admin: 01/27/21 10:43 Dose: 100 mls/hr Documented by: Magnesium Sulfate 2 gm/ Premix 50 mls @ 12.5 mls/hr IV ONETIME ONE Stop: 01/27/21 13:49 Last Admin: 01/27/21 10:43 Dose: 12.5 mls/hr Documented by: Insulin Aspart (Insulin Aspart 100 Units/Ml 3 Ml Pen) 0 unit SUBCUT Q6H [facility]; Protocol Last Admin: 01/27/21 12:10 Dose: Not Given Documented by: Lisinopril (Lisinopril 10 Mg Tab) 20 mg PO DAILY [facility] Ondansetron HCl (Ondansetron 4 Mg/2 Ml Sdv) 4 mg IVPUSH Q4H PRN PRN Reason: Nausea/Vomiting Pantoprazole Sodium (Pantoprazole 40 Mg Vial) 40 mg IV Q12HR [facility] Last Admin: 01/27/21 08:52 Dose: 40 mg Documented by: Sucralfate (Sucralfate Suspension 1 Gm/10 Ml Cup) 1 gm PO Q6H [facility] Last Admin: 01/27/21 13:09 Dose: 1 gm Documented by: Tizanidine HCl (Tizanidine 4 Mg Tab) 4 mg PO QID PRN PRN Reason: SPASMS
[2021-01-27] MEDS ORDERED: Gabapentin 800 MG Tab PO SCH (14:00)
[2021-01-27] MEDS ORDERED: atorvaSTATin 40 MG Tab PO SCH (21:00)
[2021-01-28] MEDS ORDERED: Lisinopril 10 MG Tab PO SCH (09:00)
== END 2021-01-27 14:33 | disposition home or self-care (01) ==
LOC: MW.ED 16:43 → MW.MS 21:50
PROVIDERS: ADMIT Student in an Organized Health Care Education/Training Program; ATTEND Student in an Organized Health Care Education/Training Program
DX: R55 Syncope and collapse (principal); D64.9 Anemia, unspecified; K25.9 Gastric ulcer, unspecified as acute or chronic, without hemorrhage or perforation; N30.00 Acute cystitis without hematuria; R19.7 Diarrhea, unspecified; I10 Essential (primary) hypertension; E78.00 Pure hypercholesterolemia, unspecified; E11.9 Type 2 diabetes mellitus without complications; Z79.4 Long term (current) use of insulin; Z79.899 Other long term (current) drug therapy; Z20.822 Contact with and (suspected) exposure to COVID-19; Z98.890 Other specified postprocedural states
CPT/HCPCS: 36415; 36430; 71045; 80048; 81001; 82947; 83690; 83735; 84100; 84484; 85014; 85018; 85025; 85610; 86850; 86900; 86901; 86920; 86921; 86922; 87086; 87186; 93005; 96365; 96375; 99285; A9270; C9113; J0696; J3475; J7120; J7121; P9016; U0002; 96376; G0378

== ENCOUNTER 2021-02-06 07:51 | Day surgery (SDC) | payer MEDICARE, OTHER ==
[~2021-02-06 07:51] MED LIST: Lactated Ringers 1,000 ML IV SCH; Lidocaine 2% 5 ML SDV ONE; Ondansetron 4 MG/2 ML SDV ONE; Propofol 200 MG/20 ML SDV ONE; Sodium Chloride 0.9% 10 ML SDV IV PRN; Sodium Chloride 0.9% 10 ML Syringe FLUSH PRN; Sodium Chloride 0.9% 2.5 ML Syringe FLUSH PRN
--- NOTE | 2021-02-06 08:35 | PCM.PREANE ---
Preanesthetic Assessment - Anesthesia/Transfusion/Family Hx Anesthesia History: Prior Anesthesia Without Reaction Family History of Anesthesia Reaction: No Transfusion History: Prior Transfusion Without Reaction - Review of Systems General: Weakness Pulmonary: Shortness of Breath Cardiovascular: No Symptoms Gastrointestinal: Abdominal Pain, Nausea, Vomiting Neurological: Dizziness, Numbness, Seizure Other: Reports: Diabetes - Physical Assessment NPO Status Date: 02/05/21 NPO Status Time: 00:00 Vital Signs: Last Vital Signs Temp 96.4 F L 02/06/21 08:05 Pulse 69 02/06/21 08:05 Resp 16 02/06/21 08:05 BP 135/78 02/06/21 08:05 Pulse Ox 97 02/06/21 08:05 Height: 5 ft 4 in Weight: 185 lb ASA Class: 3 Mental Status: Alert & Oriented x3 Dentition: Reports: Edentulous Thyro-Mental Finger Breadths: 3 Mouth Opening Finger Breadths: 4 ROM/Head Extension: Limited/Partial Lungs: Clear to Auscultation Cardiovascular: Regular Rate - Allergies Allergies/Adverse Reactions: Allergies Allergy/AdvReac Type Severity Reaction Status Date / Time No Known Allergies Allergy Verified 01/31/21 12:20 - Blood Blood Available: No - Acknowledgements Anesthesia Type Planned: General Anesthesia Pt an Appropriate Candidate for the Planned Anesthesia: Yes Alternatives and Risks of Anesthesia Discussed w Pt/Guardian: Yes Pt/Guardian Understands and Agrees with Anesthesia Plan: Yes PreAnesthesia Questionnaire HEENT History: Reports: Other (See Below) Other HEENT History: uses reading glasses Cardiovascular History: Reports: High Cholesterol, Hypertension Respiratory History: Reports: Sleep Apnea Other Respiratory History: hx of sleep apnea- has not used CPAP since weight loss Gastrointestinal History: Reports: Cholelithiasis, Colon Polyp, GERD, GI Bleed, Hepatitis, Helicobacter Pylori Other Gastrointestinal History: non-alcoholic stethohepatitis Genitourinary History: Reports: UTI, Recurrent [employer] 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: Musculoskeletal History: Reports: Arthritis, Back Pain, Chronic, Fracture, Neck Pain, Chronic Other Musculoskeletal History: hx of foot and ankle fx Neurological History: Reports: Concussion, Seizure Other Neuro History: last seizure was 1 month ago Psychiatric History: Reports: Anxiety, Depression Endocrine/Metabolic History: Reports: Diabetes, Type II Hematologic History: Reports: Anemia, Blood Transfusion(s) Immunologic History: Reports: None Oncologic (Cancer) History: Reports: None Dermatologic History: Reports: Psoriasis - Infectious Disease History Infectious Disease History: Reports: Chicken Pox, Shingles - Past Surgical History Head Surgeries/Procedures: Reports: None HEENT Surgical History: Reports: Oral Surgery Other HEENT Surgeries/Procedures: lower dental implants Respiratory Surgical History: Reports: None GI Surgical History: Reports: Bariatric Procedure, Cholecystectomy, Colonoscopy, EGD, Other (See Below) Other GI Surgeries/Procedures: revision of bariatric surgery, exploratory laparotomy, currently has abdominal wall ulcer Female Surgical History: Reports: Section Endocrine Surgical History: Reports: None Neurological Surgical History: Reports: Lumbar Spine Other Neurological Surgeries/Procedures: lumbar surgery x3 Musculoskeletal Surgical History: Reports: Knee Replacement, ORIF Other Musculoskeletal Surgeries/Procedures:: ORIF left ankle- has pin, left TKA Oncologic Surgical History: Reports: None Dermatological Surgical History: Reports: None - SUBSTANCE USE Tobacco Use Status *Q: Never Tobacco User Recreational Drug Use History: No - HOME MEDS Home Medications: Home Meds Insulin Glargine,Hum.Rec.Anlog [Chuy Jaimes] 45 unit SQ BEDTIME 10/16/18 [History] Metoprolol Tartrate 100 mg PO BID 10/16/18 [History] atorvaSTATin Calcium [Atorvastatin Calcium] 40 mg PO BEDTIME 10/16/18 [History] DULoxetine HCl [Duloxetine HCl] 60 mg PO BID 01/27/21 [History] Gabapentin [Neurontin] 800 mg PO TID 01/27/21 [History] Pantoprazole Sodium [Protonix] 40 mg PO BID 01/27/21 [History] Promethazine HCl 25 mg PO BID 01/27/21 [History] lisinopriL [Lisinopril] 20 mg PO QAM 01/27/21 [History] metFORMIN HCl [Metformin HCl ER] 2,000 mg PO ACDINNER 01/27/21 [History] tiZANidine HCl [Tizanidine HCl] 4 mg PO QID 01/27/21 [History] Sucralfate [Carafate] 1 gm PO QID 01/31/21 [History] levETIRAcetam [Keppra] 1,000 mg PO BID 01/31/21 [History] - CURRENT (IN HOUSE) MEDS Current Meds: Current Medications Lactated Ringer's (Ringers, Lactated) 1,000 mls @ 125 mls/hr IV ASDIRECTED JOSE Sodium Chloride (Sodium Chloride 0.9% 10 Ml Syringe) 10 ml FLUSH ASDIRECTED PRN PRN Reason: Keep Vein Open Sodium Chloride (Sodium Chloride 0.9% 2.5 Ml Syringe) 2.5 ml FLUSH ASDIRECTED P RN PRN Reason: Keep Vein Open Sodium Chloride (Sodium Chloride 0.9% 10 Ml Syringe) 10 ml FLUSH ASDIRECTED PRN PRN Reason: Keep Vein Open Sodium Chloride (Sodium Chloride 0.9% 2.5 Ml Syringe) 2.5 ml FLUSH ASDIRECTED PRN PRN Reason: Keep Vein Open Sodium Chloride (Sodium Chloride 0.9% 10 Ml Sdv) 10 ml IV ASDIRECTED PRN PRN Reason: IV Use Discontinued Medications Lidocaine (Lidocaine 2% 5 Ml Sdv) Confirm Administered Dose 5 ml .ROUTE .STK-MED ONE Stop: 02/06/21 07:05 Ondansetron HCl (Ondansetron 4 Mg/2 Ml Sdv) Confirm Administered Dose 4 mg .ROUTE .STK-MED ONE Stop: 02/06/21 07:07 Propofol (Propofol 200 Mg/20 Ml Sdv) Confirm Administered Dose 200 mg .ROUTE .STK-MED ONE Stop: 02/06/21 07:06 Propofol (Propofol 200 Mg/20 Ml Sdv) Confirm Administered Dose 200 mg .ROUTE .STK-MED ONE Stop: 02/06/21 07:06
[2021-02-06] MEDS ORDERED: Morphine 2 MG/ML SYRINGE IVPUSH PRN (08:57)
[2021-02-06] MEDS ORDERED: Metoclopramide 10 MG/2 ML SDV IVPUSH PRN (08:57)
[2021-02-06] MEDS ORDERED: Naloxone 0.4 MG/ML Syringe IVPUSH PRN (08:57)
[2021-02-06] MEDS ORDERED: HYDROmorphone 2 MG/ML Syringe IVPUSH PRN (08:57)
[2021-02-06] MEDS ORDERED: Albuterol 0.083% 2.5 MG/3 ML Neb Soln NEB PRN (08:57)
[2021-02-06] MEDS ORDERED: fentaNYL 100 MCG/2 ML SDV IVPUSH PRN (08:57)
[2021-02-06] MEDS ORDERED: Ondansetron 4 MG/2 ML SDV IVPUSH PRN (08:57)
[2021-02-06] MEDS ORDERED: Midazolam 1 MG/ML 2 ML SDV ONE (08:59)
[2021-02-06] MEDS ORDERED: Ketorolac 30 MG/ML SDV ONE (09:59)
[2021-02-06] MEDS ORDERED: Ondansetron 4 MG/2 ML SDV ONE (09:59)
[2021-02-06] MEDS ORDERED: Propofol 200 MG/20 ML SDV ONE (10:00)
--- NOTE | 2021-02-06 10:49 | PCM48HPAN ---
Post Anesthesia Note - EVALUATION WITHIN 48HRS OF ANESTHETIC Vital Signs in Normal Range: Yes Patient Participated in Evaluation: Yes Respiratory Function Stable: Yes Airway Patent: Yes Cardiovascular Function Stable: Yes Hydration Status Stable: Yes Pain Control Satisfactory: Yes Nausea and Vomiting Control Satisfactory: Yes Mental Status Recovered: Yes Vital Signs: Last Vital Signs Temp 98.1 F 02/06/21 10:15 Pulse 60 02/06/21 10:15 Resp 14 02/06/21 10:15 BP 141/73 H 02/06/21 10:15 Pulse Ox 93 L 02/06/21 10:15
--- NOTE | 2021-02-06 10:49 | PCM.POSTAN ---
POST ANESTHESIA ASSESSMENT - MENTAL STATUS Mental Status: Alert, Oriented - VITAL SIGNS Vital Signs: Last Vital Signs Temp 98.1 F 02/06/21 10:15 Pulse 60 02/06/21 10:15 Resp 14 02/06/21 10:15 BP 141/73 H 02/06/21 10:15 Pulse Ox 93 L 02/06/21 10:15 - RESPIRATORY Respiratory Status: Respiratory Rate WNL, Airway Patent, O2 Saturation Stable - CARDIOVASCULAR CV Status: Pulse Rate WNL, Blood Pressure Stable - GASTROINTESTINAL GI Status: No Symptoms - POST OP HYDRATION Hydration Status: Adequate & Stable
--- NOTE | 2021-02-06 11:17 | PCM.OPNOTE ---
- General Post-Op/Procedure Note Date of Surgery/Procedure: 02/06/21 Operative Procedure(s): Diagnostic EGD and colonoscopy Findings: Marginal ulcer, grade IV hemorrhoids Pre Op Diagnosis: GI bleed Post-Op Diagnosis: Marginal ulcer, grade IV hemorrhoid Anesthesia Technique: MAC Primary Surgeon: Darby Ramos Condition: Stable Free Text/Narrative:: Intake & Output 02/05/21 02/06/21 02/06/21 22:59 06:59 14:59 Intake Total 700 Balance 700
--- NOTE | 2021-02-07 13:34 | OR ---
SURGEON: DARBY RAMOS MD DATE OF PROCEDURE: 02/06/2021 PREOPERATIVE DIAGNOSIS: Gastrointestinal bleed. POSTOPERATIVE DIAGNOSES: 1. Marginal ulcer. 2. Grade 4 hemorrhoids. PROCEDURE PERFORMED: Diagnostic esophagogastroduodenoscopy and colonoscopy. PRIMARY SURGEON: Darby Ramos MD ANESTHESIA: MAC. INSTRUMENT USED: Olympus endoscope and colonoscope. EXTENT OF EXAM: 50 cm into the Conner limb, to the cecum. PREPARATION: Good. LIMITATIONS: None. INDICATIONS FOR EXAMINATION: The patient is a 60-year-old female who presented to my clinic with signs and symptoms of a GI bleed. Her past medical history is significant for GI bleed in the past. She had a gastric sleeve at the time, which was then converted she states to a Conner-en-Y gastric bypass. She then had a revision after that. The patient had a similar episode back in 2017 but never underwent any followup imaging or procedures. She has been having black tarry stools and was lightheaded. She was sent to the emergency room and admitted. She was given 1 unit of packed red blood cells with improvement in her symptoms. The patient and I discussed the need for an urgent EGD and colonoscopy. I explained the procedure, expected perioperative course, and the risks. The patient verbalized understanding and wishes to proceed. PROCEDURE IN DETAIL: The patient was brought into the endoscopy suite and placed in the left lateral decubitus position. A time-out was completed verifying the patient's name, age, date of , allergies, and procedure to be performed. A bite block was placed in the patient's mouth. Continuous oxygen was provided via nasal cannula throughout the procedure. Monitored anesthesia care was induced. After adequate sedation was achieved, a well-lubricated endoscope was placed in the patient's mouth and advanced under direct visualization to the stomach. Upon entering the stomach, I noted the patient to have a marginal ulcer. There was no stigmata of bleeding, but there appeared to be a white film over the top of the ulcer. I was able to pass my scope into the blind limb of the intestine. This appeared normal. I then passed the scope down the Conner limb. This all appeared normal. Photographs of these were taken. The scope was then brought back into the stomach, and a photograph taken of the marginal ulcer. Biopsies were taken on either side of this and sent to Pathology, labeled as staple line biopsy. The stomach itself appeared normal. A biopsy was taken within the gastric pouch and sent to Pathology, labeled as gastric pouch biopsy. The Z- line appeared normal, and a photograph was taken. The remainder of the distal esophagus appeared normal. The scope was removed, and this portion of procedure terminated. A digital rectal exam was performed. The patient was noted to have grade 4 hemorrhoids. A well-lubricated colonoscope was inserted into the rectum and advanced under direct visualization to the level of the cecum. The cecum was identified by both visual and anatomic landmarks. A photograph was taken of the cecal cap; however, I was unable to retroflex the scope within the cecum due to looping of the scope more proximally. The scope was then fully withdrawn while examining the color, texture, anatomy, and integrity of mucosa from the cecum to the anal canal. The findings revealed a normal colon. The scope was then brought into the rectum and retroflexed to allow visualization of the anal canal opening. This appeared normal. A photograph was taken. The scope was then straightened out and fully withdrawn. The cecum to anus time was 8 minutes. The patient tolerated the procedure well and was transferred to the PACU in stable condition. ENDOSCOPIC DIAGNOSES: Marginal ulcer, grade 4 hemorrhoids. RECOMMENDATIONS: Continue to have the patient take pantoprazole 40 mg b.i.d. as well as sucralfate. We will follow up with the patient in 2 weeks to discuss her biopsy results and the next steps in treatment. SOLIS LYN /[id number]
== END 2021-02-06 10:33 | disposition home or self-care (01) ==
LOC: MW.SDS 07:51
PROVIDERS: ATTEND Surgery
DX: R19.4 Change in bowel habit (principal); K92.1 Melena; K64.3 Fourth degree hemorrhoids; K28.9 Gastrojejunal ulcer, unspecified as acute or chronic, without hemorrhage or perforation; E66.01 Morbid (severe) obesity due to excess calories; E78.5 Hyperlipidemia, unspecified; E78.00 Pure hypercholesterolemia, unspecified; E11.9 Type 2 diabetes mellitus without complications; Z98.84 Bariatric surgery status; Z79.899 Other long term (current) drug therapy; Z98.890 Other specified postprocedural states; Z86.010 Personal history of colon polyps; Z79.4 Long term (current) use of insulin; Z68.31 Body mass index [BMI] 31.0-31.9, adult
CPT/HCPCS: 00813; 82947; 88305; 88342; J1885; J2250; J2405; J2704; J7120

== ENCOUNTER 2021-05-24 10:15 | Day surgery (SDC) | payer MEDICARE, OTHER ==
--- NOTE | 2021-05-24 09:04 | PCM.PREANE ---
Preanesthetic Assessment - Anesthesia/Transfusion/Family Hx Anesthesia History: Prior Anesthesia Without Reaction Family History of Anesthesia Reaction: No Transfusion History: Prior Transfusion Without Reaction - Review of Systems General: No Symptoms Pulmonary: No Symptoms Cardiovascular: No Symptoms Gastrointestinal: Abdominal Pain, Other (history of Marginal Ulcer) Neurological: No Symptoms Other: Reports: None - Physical Assessment NPO Status Date: 05/24/21 NPO Status Time: 00:00 Height: 5 ft 4 in Weight: 192 lb ASA Class: 3 Mental Status: Alert & Oriented x3 Airway Class: Mallampati = 2 Dentition: Reports: Normal Dentition ROM/Head Extension: Full Lungs: Clear to Auscultation, Normal Respiratory Effort Cardiovascular: Regular Rate, Regular Rhythm - Allergies Allergies/Adverse Reactions: Allergies Allergy/AdvReac Type Severity Reaction Status Date / Time No Known Allergies Allergy Verified 05/18/21 15:34 - Acknowledgements Anesthesia Type Planned: General Anesthesia Pt an Appropriate Candidate for the Planned Anesthesia: Yes Alternatives and Risks of Anesthesia Discussed w Pt/Guardian: Yes Pt/Guardian Understands and Agrees with Anesthesia Plan: Yes PreAnesthesia Questionnaire HEENT History: Reports: Other (See Below) Other HEENT History: uses reading glasses Cardiovascular History: Reports: High Cholesterol, Hypertension Respiratory History: Reports: Sleep Apnea Other Respiratory History: hx of sleep apnea- has not used CPAP since weight loss Gastrointestinal History: Reports: Cholelithiasis, Colon Polyp, GERD, GI Bleed, Hepatitis, Helicobacter Pylori Other Gastrointestinal History: non-alcoholic stethohepatitis Genitourinary History: Reports: UTI, Recurrent 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: Musculoskeletal History: Reports: Arthritis, Back Pain, Chronic, Fracture, Neck Pain, Chronic Other Musculoskeletal History: hx of foot and ankle fx Neurological History: Reports: Concussion, Seizure Other Neuro History: last seizure was 4 months ago Psychiatric History: Reports: Anxiety, Depression Endocrine/Metabolic History: Reports: Diabetes, Type II, Obesity/BMI 30+ Hematologic History: Reports: Anemia, Blood Transfusion(s) Immunologic History: Reports: None Oncologic (Cancer) History: Reports: None Dermatologic History: Reports: Psoriasis - Infectious Disease History Infectious Disease History: Reports: Chicken Pox, Shingles - Past Surgical History Head Surgeries/Procedures: Reports: None HEENT Surgical History: Reports: Naso-Sinus Surgery, Oral Surgery Other HEENT Surgeries/Procedures: lower dental implants Cardiovascular Surgical History: Reports: None Respiratory Surgical History: Reports: None GI Surgical History: Reports: Bariatric Procedure, Cholecystectomy, Colonoscopy, EGD, Other (See Below) Other GI Surgeries/Procedures: revision of bariatric surgery, exploratory laparotomy, currently has abdominal wall ulcer Female Surgical History: Reports: Section Endocrine Surgical History: Reports: None Neurological Surgical History: Reports: Lumbar Spine Other Neurological Surgeries/Procedures: lumbar surgery x3 Musculoskeletal Surgical History: Reports: Knee Replacement, ORIF Other Musculoskeletal Surgeries/Procedures:: ORIF left ankle- has pin, left TKA Oncologic Surgical History: Reports: None Dermatological Surgical History: Reports: None - SUBSTANCE USE Tobacco Use Status *Q: Never Tobacco User - HOME MEDS Home Medications: Home Meds Insulin Glargine,Hum.Rec.Anlog [Toujeo Solostar] 45 unit SQ BEDTIME 10/16/18 [History] Metoprolol Tartrate 100 mg PO BID 10/16/18 [History] atorvaSTATin Calcium [Atorvastatin Calcium] 40 mg PO BEDTIME 10/16/18 [History] DULoxetine HCl [Duloxetine HCl] 60 mg PO DAILY 01/27/21 [History] Gabapentin [Neurontin] 800 mg PO TID 01/27/21 [History] Promethazine HCl 25 mg PO BID 01/27/21 [History] lisinopriL [Lisinopril] 40 mg PO QAM 01/27/21 [History] metFORMIN HCl [Metformin HCl ER] 2,000 mg PO ACDINNER 01/27/21 [History] tiZANidine HCl [Tizanidine HCl] 4 mg PO QID 01/27/21 [History] levETIRAcetam [Keppra] 750 mg PO BID 01/31/21 [History] Pioglitazone HCl 30 mg PO DAILY 05/18/21 [History] - CURRENT (IN HOUSE) MEDS Current Meds: Current Medications Lactated Ringer's (Ringers, Lactated) 1,000 mls @ 125 mls/hr IV ASDIRECTED JOSE Sodium Chloride (Sodium Chloride 0.9% 10 Ml Syringe) 10 ml FLUSH ASDIRECTED PRN PRN Reason: Keep Vein Open Sodium Chloride (Sodium Chloride 0.9% 2.5 Ml Syringe) 2.5 ml FLUSH ASDIRECTED PRN PRN Reason: Keep Vein Open Sodium Chloride (Sodium Chloride 0.9% 10 Ml Syringe) 10 ml FLUSH ASDIRECTED PRN PRN Reason: Keep Vein Open Sodium Chloride (Sodium Chloride 0.9% 2.5 Ml Syringe) 2.5 ml FLUSH ASDIRECTED PRN PRN Reason: Keep Vein Open Sodium Chloride (Sodium Chloride 0.9% 10 Ml Sdv) 10 ml IV ASDIRECTED PRN PRN Reason: IV Use Discontinued Medications Fentanyl (Fentanyl 100 Mcg/2 Ml Sdv) Confirm Administered Dose 100 mcg .ROUTE .STK-MED ONE Stop: 05/24/21 08:57 Lidocaine (Lidocaine 2% 5 Ml Sdv) Confirm Administered Dose 5 ml .ROUTE .STK-MED ONE Stop: 05/24/21 08:57 Midazolam HCl (Midazolam 1 Mg/Ml 2 Ml Sdv) Confirm Administered Dose 2 mg .ROUTE .STK-MED ONE Stop: 05/24/21 08:57 Propofol (Propofol 200 Mg/20 Ml Sdv) Confirm Administered Dose 200 mg .ROUTE .STK-MED ONE Stop: 05/24/21 08:57
[~2021-05-24 10:15] MED LIST changes: +Midazolam 1 MG/ML 2 ML SDV ONE; -Ondansetron 4 MG/2 ML SDV ONE; +fentaNYL 100 MCG/2 ML SDV ONE
--- NOTE | 2021-05-24 11:41 | PCM.OPNOTE ---
- General Post-Op/Procedure Note Date of Surgery/Procedure: 05/24/21 Operative Procedure(s): Diagnostic EGD Findings: Marginal ulcer completely healed. Pre Op Diagnosis: Marginal ulcer Post-Op Diagnosis: same Anesthesia Technique: MAC Primary Surgeon: Darby Ramos Condition: Good
--- NOTE | 2021-05-24 13:17 | PCM.POSTAN ---
POST ANESTHESIA ASSESSMENT - MENTAL STATUS Mental Status: Alert, Oriented - VITAL SIGNS Vital Signs: Last Vital Signs Temp 97.5 F 05/24/21 11:53 Pulse 68 05/24/21 11:53 Resp 14 05/24/21 11:53 BP 152/72 H 05/24/21 11:53 Pulse Ox 93 L 05/24/21 11:53 - RESPIRATORY Respiratory Status: Respiratory Rate WNL, Airway Patent, O2 Saturation Stable - CARDIOVASCULAR CV Status: Pulse Rate WNL, Blood Pressure Stable - GASTROINTESTINAL GI Status: No Symptoms - POST OP HYDRATION Hydration Status: Adequate & Stable
--- NOTE | 2021-05-24 13:18 | PCM48HPAN ---
Post Anesthesia Note - EVALUATION WITHIN 48HRS OF ANESTHETIC Vital Signs in Normal Range: Yes Patient Participated in Evaluation: Yes Respiratory Function Stable: Yes Airway Patent: Yes Cardiovascular Function Stable: Yes Hydration Status Stable: Yes Pain Control Satisfactory: Yes Nausea and Vomiting Control Satisfactory: Yes Mental Status Recovered: Yes Vital Signs: Last Vital Signs Temp 97.5 F 05/24/21 11:53 Pulse 68 05/24/21 11:53 Resp 14 05/24/21 11:53 BP 152/72 H 05/24/21 11:53 Pulse Ox 93 L 05/24/21 11:53
--- NOTE | 2021-05-25 20:18 | OR ---
SURGEON: DARBY RAMOS MD DATE OF PROCEDURE: 05/24/2021 PREOPERATIVE DIAGNOSIS: History of marginal ulcer. POSTOPERATIVE DIAGNOSIS: History of marginal ulcer. PROCEDURE PERFORMED: Diagnostic EGD. PRIMARY SURGEON: Darby Ramos MD ANESTHESIA: MAC. INSTRUMENT USED: Olympus endoscope. EXTENT OF EXAM: 50 cm down the Conner limb. PREPARATION: Good. LIMITATIONS: None. INDICATIONS FOR EXAMINATION: The patient is a 60-year-old female with a complex history of gastric bypass with ulcer perforation. I saw her several months ago and performed a diagnostic EGD. At the time, she was found to have a marginal ulcer. She was placed on b.i.d. PPIs and Carafate. She has felt much better since this. She is here for repeat endoscopy. I explained the procedure, expected perioperative course, and risks. She verbalized understanding and wishes to proceed. PROCEDURE IN DETAIL: The patient was brought into the endoscopy suite and placed in a semi-beach chair position. A time-out was completed verifying the patient's name, age, date of , allergies, and procedure to be performed. Monitored anesthesia care was induced and continuous oxygen was provided via nasal cannula throughout the procedure. A bite block was placed in the patient's mouth. After adequate sedation was achieved, a well-lubricated endoscope was placed in the patient's mouth and advanced under direct visualization to the gastric pouch. A photograph of the gastric pouch was taken. I then transverse down the Conner limb. I went as far as 50 cm from the teeth. This all appeared healthy and normal. A photograph was taken. The scope was fully withdrawn then while examining the upper GI anatomy. The previous area where the marginal ulcer was appeared to be healed. There was no evidence of inflammation or ulceration at the anastomotic line. A biopsy was taken in the gastric pouch and sent for histologic review. The remainder of the gastric pouch and esophagus appeared normal. The scope was removed and the procedure terminated. The patient tolerated it well and was taken to PACU in stable condition. ENDOSCOPIC DIAGNOSIS: Healed marginal ulcer. RECOMMENDATIONS: I visited with the patient in the PACU. She can go down to once a day PPI treatment. I will follow up with her in clinic in 2 weeks. SOLIS / RIKI /[id number]
== END 2021-05-24 12:12 | disposition home or self-care (01) ==
LOC: MW.SDS 10:15
PROVIDERS: ATTEND Surgery
DX: K28.9 Gastrojejunal ulcer, unspecified as acute or chronic, without hemorrhage or perforation (principal); E11.9 Type 2 diabetes mellitus without complications; K75.81 Nonalcoholic steatohepatitis (NASH); E78.00 Pure hypercholesterolemia, unspecified; I10 Essential (primary) hypertension; E66.9 Obesity, unspecified; Z79.899 Other long term (current) drug therapy; Z79.84 Long term (current) use of oral hypoglycemic drugs; Z98.84 Bariatric surgery status; Z98.890 Other specified postprocedural states; Z68.33 Body mass index [BMI] 33.0-33.9, adult
CPT/HCPCS: 43239; J2250; J2704; J3010; J7120; 00731; 88305; 88342

== ENCOUNTER 2021-07-04 18:58 | Emergency (ER) | payer MEDICARE, OTHER ==
--- NOTE | 2021-07-04 19:33 | EDM.PDOC ---
<Montrell Howe - Last Filed: 07/05/21 07:08> ED HPI GENERAL MEDICAL PROBLEM - General Chief Complaint: Abdominal Pain Stated Complaint: POSSIBLE BLEEDING ULCER Time Seen by Provider: 07/04/21 19:13 Source of Information: Reports: Patient History Limitations: Reports: No Limitations - History of Present Illness INITIAL COMMENTS - FREE TEXT/NARRATIVE: Patient is a 60-year-old female with a history of bleeding ulcers and gastric bypass presents today for abdominal pain. States that she has had burning sensation in abdomen similar to those in the past. She also reports some dark- colored stools. She also reports he been feeling weak tired but not pale. She denies any vomiting or diarrhea. She denies fever chills or other complaints. Abdomen Pain Score (Numeric/FACES): 9 - Related Data Allergies Allergy/AdvReac Type Severity Reaction Status Date / Time No Known Allergies Allergy Verified 05/18/21 15:34 Home Meds: Home Meds Insulin Glargine,Hum.Rec.Anlog [Chuy Jaimes] 45 unit SQ BEDTIME 10/16/18 [History] Metoprolol Tartrate 50 mg PO BID 10/16/18 [History] atorvaSTATin Calcium [Atorvastatin Calcium] 40 mg PO BEDTIME 10/16/18 [History] DULoxetine HCl [Duloxetine HCl] 120 mg PO DAILY 01/27/21 [History] Gabapentin [Neurontin] 800 mg PO TID 01/27/21 [History] Promethazine HCl 25 mg PO BID PRN 01/27/21 [History] lisinopriL [Lisinopril] 40 mg PO QAM 01/27/21 [History] metFORMIN HCl [Metformin HCl ER] 2,000 mg PO WITHDINNER 01/27/21 [History] tiZANidine HCl [Tizanidine HCl] 4 mg PO QID 01/27/21 [History] levETIRAcetam [Keppra] 750 mg PO BID 01/31/21 [History] Pioglitazone HCl 30 mg PO DAILY 05/18/21 [History] Pantoprazole [ProTONIX] 40 mg PO DAILY 07/05/21 [History] Past Medical History HEENT History: Reports: Other (See Below) Other HEENT History: uses reading glasses Cardiovascular History: Reports: High Cholesterol, Hypertension Respiratory History: Reports: Sleep Apnea Other Respiratory History: hx of sleep apnea- has not used CPAP since weight loss Gastrointestinal History: Reports: Cholelithiasis, Colon Polyp, GERD, GI Bleed, Hepatitis, Helicobacter Pylori Other Gastrointestinal History: non-alcoholic stethohepatitis Genitourinary History: Reports: UTI, Recurrent 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 AMMONIA History: Reports: Musculoskeletal History: Reports: Arthritis, Back Pain, Chronic, Fracture, Neck Pain, Chronic Other Musculoskeletal History: hx of foot and ankle fx Neurological History: Reports: Concussion, Seizure Other Neuro History: last seizure was 4 months ago Psychiatric History: Reports: Anxiety, Depression Endocrine/Metabolic History: Reports: Diabetes, Type II, Obesity/BMI 30+ Hematologic History: Reports: Anemia, Blood Transfusion(s) Immunologic History: Reports: None Oncologic (Cancer) History: Reports: None Dermatologic History: Reports: Psoriasis - Infectious Disease History Infectious Disease History: Reports: Chicken Pox, Shingles - Past Surgical History Head Surgeries/Procedures: Reports: None HEENT Surgical History: Reports: Naso-Sinus Surgery, Oral Surgery Other HEENT Surgeries/Procedures: lower dental implants Cardiovascular Surgical History: Reports: None Respiratory Surgical History: Reports: None GI Surgical History: Reports: Bariatric Procedure, Cholecystectomy, Colonoscopy, EGD, Other (See Below) Other GI Surgeries/Procedures: revision of bariatric surgery, exploratory laparotomy, currently has abdominal wall ulcer Female Surgical History: Reports: Section Endocrine Surgical History: Reports: None Neurological Surgical History: Reports: Lumbar Spine Other Neurological Surgeries/Procedures: lumbar surgery x3 Musculoskeletal Surgical History: Reports: Knee Replacement, ORIF Other Musculoskeletal Surgeries/Procedures:: ORIF left ankle- has pin, left TKA Oncologic Surgical History: Reports: None Dermatological Surgical History: Reports: None Social & Family History - Family History Family Medical History: No Pertinent Family History - Tobacco Use Tobacco Use Status *Q: Never Tobacco User Second Hand Smoke Exposure: No - Caffeine Use Caffeine Use: Reports: Soda - Recreational Drug Use Recreational Drug Use: No ED ROS GENERAL - Review of Systems Review Of Systems: See Below Constitutional: Reports: No Symptoms HEENT: Reports: No Symptoms Respiratory: Reports: No Symptoms Cardiovascular: Reports: No Symptoms Endocrine: Reports: No Symptoms GI/Abdominal: Reports: Abdominal Pain : Reports: No Symptoms Musculoskeletal: Reports: No Symptoms Skin: Reports: No Symptoms Neurological: Reports: No Symptoms Psychiatric: Reports: No Symptoms Hematologic/Lymphatic: Reports: No Symptoms Immunologic: Reports: No Symptoms ED EXAM, GI/ABD - Physical Exam Exam: See Below Exam Limited By: No Limitations General Appearance: Alert, WD/WN, No Apparent Distress Throat/Mouth: Normal Inspection Head: Atraumatic Neck: Normal Inspection Respiratory/Chest: No Respiratory Distress, Lungs Clear, Normal Breath Sounds Cardiovascular: Normal Peripheral Pulses, Regular Rate, Rhythm GI/Abdominal Exam: Normal Bowel Sounds, Soft, Non-Tender Extremities: Normal Inspection Neurological: Alert, Oriented, Normal Cognition, Normal Gait Course - Re-Assessments/Exams Free Text/Narrative Re-Assessment/Exam: 07/04/21 23:32 Patient hemoglobin stable at 11. After having 1 L of fluids her blood pressure normalized. Patient looks a lot better on exam. Patient CT reviewed viewed shows possible peptic ulcer disease. Patient will be admitted to hospital to have her hemoglobin trended. 07/05/21 00:47 We are going to admit patient hospital is warranted GI consult we called GI [facility] Dr. Aguayo he recommend the patient may need scoping we spoke to surgery who does not feel comfortable scoping patient will now a look for transfer for patient while she remains in ED we will start to her side and continue to trend CBC and transfuse as needed. 07/05/21 02:08 Patient is now Covid positive and this is preventing patient prevent transfer as we have no available beds. We will continue to monitor patient CBC and continue to look for transfer of the patient. 07/05/21 07:08 Hemoglobin stable is now 10.6 and previously 10.5. Continues look well. We are still looking for placement for patient we will try to call Valerie again in the morning his GI doctor says that he may be rescoped the patient from the ED if we cannot find a bed for patient. Departure - Departure Time of Disposition: 23:32 Disposition: DC/Tfer to Acute Hospital 02 Condition: Good Clinical Impression: GI bleed - Discharge Information *PRESCRIPTION DRUG MONITORING PROGRAM REVIEWED*: Not Applicable *COPY OF PRESCRIPTION DRUG MONITORING REPORT IN PATIENT [place]EN[place]: Not Applicable Instructions: Gastrointestinal Bleeding Referrals: Han Martinez MD [Primary Care Provider] - Forms: ED Department Discharge Critical Care Note - Critical Care Note Total Time (mins): 45 Comments: Critical Care Procedure Note Authorized and Performed by: Dr. Howe Total critical care time: Approximately Due to a high probability of clinically significant, life threatening deterioration, the patient required my highest level of preparedness to intervene emergently and I personally spent this critical care time directly and personally managing the patient. This critical care time included obtaining a history; examining the patient; pulse oximetry; ordering and review of studies; arranging urgent treatment with development of a management plan; evaluation of patient's response to treatment; frequent reassessment; and, discussions with other providers. This critical care time was performed to assess and manage the high probability of imminent, life-threatening deterioration that could result in multi-organ failure. It was exclusive of separately billable procedures and treating other patients and teaching time. Sepsis Event Note (ED) - Evaluation Sepsis Screening Result: No Definite Risk - Assessment/Plan Plan: Patient is a 6-year-old female presents today for abdominal pain possible bleeding ulcers. Will obtain labs type and screen rectal exam and reassess. <Tevin Moon - Last Filed: 07/05/21 09:07> Course - Vital Signs Last Recorded V/S: Last Vital Signs Temp 37.0 C 07/04/21 19:12 Pulse 96 07/05/21 07:54 Resp 18 07/05/21 07:54 BP 179/82 H 07/05/21 07:54 Pulse Ox 98 07/05/21 07:54 - Orders/Labs/Meds Orders: Active Orders 24 hr Category Date Time Status Patient Status [ADT] Routine ADT 07/04/21 23:31 Active Octreotide [SandoSTATIN] 500 mcg Med 07/05/21 00:30 Active Sodium Chloride 0.9% [Normal Saline] 495 ml IV Q10H Sodium Chloride 0.9% [Normal Saline] 1,000 ml Med 07/05/21 07:15 Active IV ASDIRECTED Medication Orders Octreotide Acetate 500 mcg/ (Sodium Chloride) 500 mls @ 50 mls/hr IV Q10H JOSE Last Admin: 07/05/21 00:53 Dose: 50 mcg/hr, 50 mls/hr Documented by: JIGAR Sodium Chloride (Normal Saline) 1,000 mls @ 150 mls/hr IV ASDIRECTED JOSE Last Admin: 07/05/21 07:51 Dose: 150 mls/hr Documented by: LINDA Labs: Laboratory Tests 07/04/21 07/04/21 07/04/21 Range/Units 19:28 19:28 19:28 WBC 10.93 (4.0-11.0) K/uL RBC 3.98 L (4.30-5.90) M/uL Hgb 11.4 L (12.0-16.0) g/dL Hct 34.8 L (36.0-46.0) % MCV 87.4 (80.0-98.0) fL MCH 28.6 (27.0-32.0) pg MCHC 32.8 (31.0-37.0) g/dL RDW Std Deviation 49.4 (28.0-62.0) fl RDW Coeff of Paul 15 (11.0-15.0) % Plt Count 420 H (150-400) K/uL MPV 9.60 (7.40-12.00) fL Neut % (Auto) 78.2 (48.0-80.0) % Lymph % (Auto) 14.1 L (16.0-40.0) % [place] % (Auto) 7.2 (0.0-15.0) % Eos % (Auto) 0.3 (0.0-7.0) % Baso % (Auto) 0.2 (0.0-1.5) % Neut # (Auto) 8.6 H (1.4-5.7) K/uL Lymph # (Auto) 1.5 (0.6-2.4) K/uL [place] # (Auto) 0.8 (0.0-0.8) K/uL Eos # (Auto) 0.0 (0.0-0.7) K/uL Baso # (Auto) 0.0 (0.0-0.1) K/uL Nucleated RBC % 0.0 /100WBC Nucleated RBCs # 0 K/uL INR 1.01 APTT 23.0 (18.6-31.3) SEC Sodium 135 L (136-145) mmol/L Potassium 4.1 (3.5-5.1) mmol/L Chloride 98 (98-107) mmol/L Carbon Dioxide 24.7 (21.0-32.0) mmol/L BUN 23 H (7.0-18.0) mg/dL Creatinine 1.1 H (0.6-1.0) mg/dL Est Cr Clr Drug Dosing 46.96 mL/min Estimated GFR (MDRD) 50.7 ml/min Glucose 224 H (74-106) mg/dL Lactic Acid (0.4-2.0) mmol/L Calcium 8.8 (8.5-10.1) mg/dL Phosphorus 4.0 (2.6-4.7) mg/dL Magnesium 1.7 L (1.8-2.4) mg/dL Total Bilirubin 0.9 (0.2-1.0) mg/dL AST 15 (15-37) IU/L ALT 24 (14-63) IU/L Alkaline Phosphatase 105 (46-116) U/L Creatine Kinase 30 (26-308) U/L Total Protein 7.4 (6.4-8.2) g/dL Albumin 3.5 (3.4-5.0) g/dL Globulin 3.9 (2.6-4.0) g/dL Albumin/Globulin Ratio 0.9 (0.9-1.6) Lipase 80 (73-393) U/L Urine Color Urine Appearance Urine pH (5.0-8.0) Ur Specific [place] (1.001-1.035) Urine Protein (NEGATIVE) mg/dL Urine Glucose (UA) (NEGATIVE) mg/dL Urine Ketones (NEGATIVE) mg/dL Urine Occult Blood (NEGATIVE) Urine Nitrite (NEGATIVE) Urine Bilirubin (NEGATIVE) Urine Urobilinogen (<2.0) EU/dL Ur Leukocyte Esterase (NEGATIVE) SARS-CoV-2 RNA (REYNOLD) (NEGATIVE) Blood Type Antibody Screen 07/04/21 07/04/21 07/04/21 Range/Units 19:40 19:40 22:59 WBC 7.26 (4.0-11.0) K/uL RBC 3.72 L (4.30-5.90) M/uL Hgb 10.5 L (12.0-16.0) g/dL Hct 32.5 L (36.0-46.0) % MCV 87.4 (80.0-98.0) fL MCH 28.2 (27.0-32.0) pg MCHC 32.3 (31.0-37.0) g/dL RDW Std Deviation 49.8 (28.0-62.0) fl RDW Coeff of Paul 16 H (11.0-15.0) % Plt Count 346 (150-400) K/uL MPV 9.50 (7.40-12.00) fL Neut % (Auto) (48.0-80.0) % Lymph % (Auto) (16.0-40.0) % [place] % (Auto) (0.0-15.0) % Eos % (Auto) (0.0-7.0) % Baso % (Auto) (0.0-1.5) % Neut # (Auto) (1.4-5.7) K/uL Lymph # (Auto) (0.6-2.4) K/uL [place] # (Auto) (0.0-0.8) K/uL Eos # (Auto) (0.0-0.7) K/uL Baso # (Auto) (0.0-0.1) K/uL Nucleated RBC % 0.0 /100WBC Nucleated RBCs # 0 K/uL INR APTT (18.6-31.3) SEC Sodium (136-145) mmol/L Potassium (3.5-5.1) mmol/L Chloride (98-107) mmol/L Carbon Dioxide (21.0-32.0) mmol/L BUN (7.0-18.0) mg/dL Creatinine (0.6-1.0) mg/dL Est Cr Clr Drug Dosing mL/min Estimated GFR (MDRD) ml/min Glucose (74-106) mg/dL Lactic Acid 1.2 (0.4-2.0) mmol/L Calcium (8.5-10.1) mg/dL Phosphorus (2.6-4.7) mg/dL Magnesium (1.8-2.4) mg/dL Total Bilirubin (0.2-1.0) mg/dL AST (15-37) IU/L ALT (14-63) IU/L Alkaline Phosphatase (46-116) U/L Creatine Kinase (26-308) U/L Total Protein (6.4-8.2) g/dL Albumin (3.4-5.0) g/dL Globulin (2.6-4.0) g/dL Albumin/Globulin Ratio (0.9-1.6) Lipase (73-393) U/L Urine Color Urine Appearance Urine pH (5.0-8.0) Ur Specific [place] (1.001-1.035) Urine Protein (NEGATIVE) mg/dL Urine Glucose (UA) (NEGATIVE) mg/dL Urine Ketones (NEGATIVE) mg/dL Urine Occult Blood (NEGATIVE) Urine Nitrite (NEGATIVE) Urine Bilirubin (NEGATIVE) Urine Urobilinogen (<2.0) EU/dL Ur Leukocyte Esterase (NEGATIVE) SARS-CoV-2 RNA (REYNOLD) (NEGATIVE) Blood Type A POSITIVE Antibody Screen NEGATIVE 07/04/21 07/04/21 07/05/21 Range/Units 23:28 23:34 03:55 WBC 6.87 (4.0-11.0) K/uL RBC 3.67 L (4.30-5.90) M/uL Hgb 10.6 L (12.0-16.0) g/dL Hct 32.2 L (36.0-46.0) % MCV 87.7 (80.0-98.0) fL MCH 28.9 (27.0-32.0) pg MCHC 32.9 (31.0-37.0) g/dL RDW Std Deviation 49.6 (28.0-62.0) fl RDW Coeff of Paul 15 (11.0-15.0) % Plt Count 328 (150-400) K/uL MPV 9.40 (7.40-12.00) fL Neut % (Auto) (48.0-80.0) % Lymph % (Auto) (16.0-40.0) % [place] % (Auto) (0.0-15.0) % Eos % (Auto) (0.0-7.0) % Baso % (Auto) (0.0-1.5) % Neut # (Auto) (1.4-5.7) K/uL Lymph # (Auto) (0.6-2.4) K/uL [place] # (Auto) (0.0-0.8) K/uL Eos # (Auto) (0.0-0.7) K/uL Baso # (Auto) (0.0-0.1) K/uL Nucleated RBC % 0.0 /100WBC Nucleated RBCs # 0 K/uL INR APTT (18.6-31.3) SEC Sodium (136-145) mmol/L Potassium (3.5-5.1) mmol/L Chloride (98-107) mmol/L Carbon Dioxide (21.0-32.0) mmol/L BUN (7.0-18.0) mg/dL Creatinine (0.6-1.0) mg/dL Est Cr Clr Drug Dosing mL/min Estimated GFR (MDRD) ml/min Glucose (74-106) mg/dL Lactic Acid (0.4-2.0) mmol/L Calcium (8.5-10.1) mg/dL Phosphorus (2.6-4.7) mg/dL Magnesium (1.8-2.4) mg/dL Total Bilirubin (0.2-1.0) mg/dL AST (15-37) IU/L ALT (14-63) IU/L Alkaline Phosphatase (46-116) U/L Creatine Kinase (26-308) U/L Total Protein (6.4-8.2) g/dL Albumin (3.4-5.0) g/dL Globulin (2.6-4.0) g/dL Albumin/Globulin Ratio (0.9-1.6) Lipase (73-393) U/L Urine Color YELLOW Urine Appearance CLEAR Urine pH 5.0 (5.0-8.0) Ur Specific [place] <= 1.005 (1.001-1.035) Urine Protein NEGATIVE (NEGATIVE) mg/dL Urine Glucose (UA) NEGATIVE (NEGATIVE) mg/dL Urine Ketones 40 H (NEGATIVE) mg/dL Urine Occult Blood NEGATIVE (NEGATIVE) Urine Nitrite NEGATIVE (NEGATIVE) Urine Bilirubin SMALL H (NEGATIVE) Urine Urobilinogen 0.2 (<2.0) EU/dL Ur Leukocyte Esterase NEGATIVE (NEGATIVE) SARS-CoV-2 RNA (REYNOLD) POSITIVE H (NEGATIVE) Blood Type Antibody Screen Meds: Medications Generic Name Dose Route Start Last Admin Trade Name Freq PRN Reason Stop Dose Admin Octreotide Acetate 500 mcg/ 500 mls @ 50 mls/hr 07/05/21 00:30 07/05/21 00:53 Sodium Chloride IV 50 mcg/hr Q10H JOSE 50 mls/hr Administration 50 MCG/HR Sodium Chloride 1,000 mls @ 150 mls/hr 07/05/21 07:15 07/05/21 07:51 Normal Saline IV 150 mls/hr ASDIRECTED JOSE Administration Discontinued Medications Generic Name Dose Route Start Last Admin Trade Name Freq PRN Reason Stop Dose Admin Alum [place]/Mag [place]/Simeth XS 0 ml 07/05/21 00:46 07/05/21 00:52 15 ml/ Lidocaine HCl 5 ml PO 07/05/21 00:47 45 each ONETIME ONE Administration Fentanyl 50 mcg 07/05/21 01:03 07/05/21 01:18 Fentanyl 50 Mcg/Ml Sdv IVPUSH 07/05/21 01:04 50 mcg ONETIME ONE Administration Sodium Chloride 1,000 mls @ 999 mls/hr 07/04/21 19:37 07/04/21 19:36 Normal Saline IV 07/04/21 20:37 999 mls/hr ONETIME ONE Administration Pantoprazole Sodium 80 mg/ 20 mls @ 420 mls/hr 07/04/21 20:47 07/04/21 21:35 Sodium Chloride IVPUSH 07/04/21 20:49 420 mls/hr ONETIME ONE Administration Iopamidol 100 ml 07/04/21 21:23 07/04/21 21:25 Iopamidol 755 Mg/Ml 500 Ml Multipack Bottle IVPUSH 07/04/21 21:24 100 ml ONETIME STA Administration - Re-Assessments/Exams Free Text/Narrative Re-Assessment/Exam: 07/05/21 07:24 Accepted the patient at the change of shift. The patient is apparently stable but needs GI to scope her because of her complicated history including Conner-en-Y surgery. She was hypotensive at the beginning of this visit. The patient has increased inflammation at the junction of the stomach and duodenum. Dr. Aguayo in [place] has agreed that he might scope her today if we can send her. The problem is trying to find a bed for Covid positive patient in need to gastroenterology. 07/05/21 09:06 Discussed with at [facility] and she talk to her clinical data coordinator and agreed to accept the patient since he now had opened up a Covid positive bed. Departure - Departure Time of Disposition: 09:07 Condition: Good Sepsis Event Note (ED) - Focused Exam Vital Signs: Vital Signs Pulse Resp BP Pulse Ox 07/05/21 07:54 96 18 179/82 H 98 07/05/21 07:03 93 18 218/106 H 97 07/05/21 06:00 99 164/90 H 95 07/05/21 04:46 92 175/86 H 98 07/05/21 03:07 93 150/83 H 98 07/05/21 01:20 92 16 140/89 98 07/05/21 00:01 98 154/91 H 96 07/04/21 23:02 102 H 154/90 H 96 07/04/21 22:02 104 H 149/93 H 96
[2021-07-04] MEDS ORDERED: Sodium Chloride 0.9% 1,000 ML IV ONE (19:37)
[2021-07-04 19:56] LABS: CARBON DIOXIDE,CO2 24.7 mmol/L (21.0-32.0); POTASSIUM,K 4.1 mmol/L (3.5-5.1)
[2021-07-04] MEDS ORDERED: Pantoprazole 80 MG in Sodium Chloride 0.9% 20 ML IVPUSH ONE (20:47)
[2021-07-04] MEDS ORDERED: Iopamidol 755 MG/ML 500 ML Multipack Bottle IVPUSH STA (21:23)
--- NOTE | 2021-07-04 22:15 | CT ---
INDICATION: History of ulcer. Hypotension. Diffuse abdominal pain. COMPARISON: CT of the abdomen and pelvis from 01/22/2021. TECHNIQUE: CT examination of the abdomen and pelvis was performed with the uneventful intravenous administration of 100 cc of Isovue 370 while 2.5 mm thick axial sections were obtained from the lung bases through the pubic symphysis. Oral contrast was not administered. Please note that all CT scans at this facility use dose modulation, iterative reconstruction, and/or weight-based dosing when appropriate to reduce radiation dose to as low as reasonably achievable. FINDINGS: In the abdomen, the liver is again seen to have a small nodular hypodensity in the posterior aspect of the superior segment, segment 7, measuring 10 millimeters in diameter. This was seen to have nodular peripheral enhancement on the previous study, consistent with a hemangioma. The rest of the liver is normal in appearance. The spleen and pancreas are normal in appearance. Again seen is a fat containing left adrenal nodule measuring 3.1 x 2.4 centimeters, entry level sales representative of an adrenal myelolipoma. A stable small nodule in the right adrenal gland measuring 1.6 x 1.1 centimeters in diameter has density of 3 Hounsfield units, entry level sales representative of a small lipid rich adrenal adenoma requiring no further follow-up. Again seen are small cysts in both kidneys, the largest in the right interpolar region measuring 1.3 centimeters in diameter. Again seen is absence of the gallbladder consistent with cholecystectomy. The common bile duct is nondilated. The abdominal aorta is normal in caliber with no sign of dilatation. There is no sign of retroperitoneal mass or adenopathy. Again seen are changes of subtotal gastrectomy with Conner-en-Y anastomosis. Again seen is thickening of the wall of the anterior residual gastric fundus on axial image 30 series 201 consistent with a large ulcer, without evidence of perforation. The previously seen soft tissue stranding inferior to the ulceration has increased slightly, worrisome for worsening inflammation. There is new prominent edema of the jejunum extending from the anastomosis. There is no sign of any ulceration or erosion of the small bowel loop. The findings are that of nonspecific enteritis, but this is likely from peptic disease. Again seen is a small hiatal hernia. The distal stomach, the rest of loops of small bowel, and colon in the abdomen are normal in appearance. In the pelvis, the appendix is nonvisualized, but there is no sign of an inflammatory process in the area of the appendix. The loops of small bowel and colon in the pelvis are normal in appearance. The uterus and adnexal regions are normal in appearance. The urinary bladder is normal in appearance. There is no sign of pelvic or inguinal mass or adenopathy. There is no sign of free air or free fluid in the abdomen or pelvis. There is new minimal linear ground-glass density in the lateral right lower lobe, axial image 15 series 201, probably from inflammatory disease. The lung bases are otherwise clear. Again seen is mild scoliosis of the lumbar spine convex towards the left. Again seen is moderate L5-S1 disc degenerative disease. IMPRESSION: CT of the abdomen shows new moderate inflammation of the jejunum extending from the gastrojejunostomy related to subtotal gastrectomy with Conner-en-Y anastomosis. The findings are that of nonspecific enteritis, probably from peptic disease. Continued thinning of the mucosa of the anterior wall of the gastric remnant consistent with ulceration, without evidence of perforation. Increased mild soft tissues stranding inferior to the ulceration suggesting increased inflammation. Stable appearance of small hiatal hernia. Status post cholecystectomy with no sign of biliary ductal dilatation. Stable appearance of left adrenal myelolipoma and lipid rich right adrenal adenoma. Normal CT of the pelvis with contrast. Please note that all CT scans at this facility use dose modulation, iterative reconstruction, and/or weight-based dosing when appropriate to reduce radiation dose to as low as reasonably achievable. Dictated by Bereket Barba MD @ 07/04/2021 10:14:04 PM (Electronically Signed)
[2021-07-05] MEDS ORDERED: Octreotide 500 MCG in Sodium Chloride 0.9% 495 ML IV SCH (00:30)
[2021-07-05] MEDS ORDERED: Alum Hydro/Mag Hydro/Simeth XS 15 ML, Lidocaine 2% 5 ML PO ONE ×2 (00:46)
[2021-07-05] MEDS ORDERED: fentaNYL 50 MCG/ML SDV IVPUSH ONE (01:03)
[2021-07-05] MEDS ORDERED: Sodium Chloride 0.9% 1,000 ML IV SCH (07:15)
== END 2021-07-05 09:50 ==
LOC: MW.ED 18:58
DX: K92.2 Gastrointestinal hemorrhage, unspecified (principal); E78.00 Pure hypercholesterolemia, unspecified; I10 Essential (primary) hypertension; E11.9 Type 2 diabetes mellitus without complications; E66.9 Obesity, unspecified; Z68.30 Body mass index [BMI] 30.0-30.9, adult; Z79.84 Long term (current) use of oral hypoglycemic drugs; Z79.899 Other long term (current) drug therapy
CPT/HCPCS: 36415; 74177; 80053; 81003; 82550; 83605; 83690; 83735; 84100; 85025; 85027; 85610; 85730; 86850; 86900; 86901; 96365; 96366; 96375; 99285; A9270; C9113; J2354; J3010; J7030; J7040; Q9967; U0002

== ENCOUNTER 2022-01-23 15:51 | Observation (INO) | payer MEDICARE, OTHER ==
[2022-01-23] MEDS ORDERED: Pantoprazole 80 MG in Sodium Chloride 0.9% 10 ML IVPUSH ONE (15:59)
[2022-01-23] MEDS ORDERED: Morphine 4 MG/ML VIAL IVPUSH ONE (16:06)
[2022-01-23] MEDS ORDERED: Ondansetron 4 MG/2 ML SDV IVPUSH ONE (16:06)
[2022-01-23] MEDS ORDERED: Sodium Chloride 0.9% 1,000 ML IV ONE (16:06)
[2022-01-23 16:57] LABS: CARBON DIOXIDE,CO2 29.2 mmol/L (21.0-32.0); POTASSIUM,K 4.1 mmol/L (3.5-5.1)
[2022-01-23] MEDS ORDERED: Iopamidol 755 MG/ML 500 ML Multipack Bottle IVPUSH STA (17:03)
[2022-01-23] MEDS ORDERED: Magnesium Sulfate/Water 2 GM in Premix Bag 1 BAG IV ONE (17:04)
[2022-01-23] MEDS ORDERED: HYDROmorphone 1 MG/ML Syringe IVPUSH ONE (17:41)
[2022-01-23] MEDS ORDERED: Albuterol/Ipratropium 3.0-0.5 MG/3 ML Neb Soln NEB PRN (19:54)
[2022-01-23] MEDS ORDERED: Ondansetron 4 MG/2 ML SDV IVPUSH PRN (19:54)
[2022-01-23] MEDS ORDERED: Metoprolol Tartrate 50 MG Tab PO SCH (21:00)
[2022-01-23] MEDS ORDERED: atorvaSTATin 40 MG Tab PO SCH (21:00)
[2022-01-23] MEDS: levETIRAcetam 500 MG Tab PO SCH (21:05)
[2022-01-23] MEDS: Pantoprazole 40 MG in Sodium Chloride 0.9% 10 ML IVPUSH SCH (21:07)
[2022-01-23] MEDS: Lactated Ringers 1,000 ML IV SCH (21:08)
[2022-01-23] MEDS: HYDROmorphone 1 MG/ML Syringe IVPUSH PRN (23:51)
[2022-01-24] MEDS ORDERED: 50% Dextrose in Water 50 ML Syringe IVPUSH PRN ×2 (00:05→00:08)
[2022-01-24] MEDS ORDERED: Glucagon,Human Recombinant 1 MG Vial IM PRN ×2 (00:05→00:08)
[2022-01-24] MEDS ORDERED: Insulin Glargine,Human Rec. Analog 100 Units/ML 3 ML Pen SUBCUT ONE (00:09)
[2022-01-24] MEDS: tiZANidine 4 MG Tab PO SCH ×3 (00:36→13:14)
[2022-01-24] MEDS: Insulin Aspart 100 Units/ML 3 ML Pen SUBCUT SCH ×3 (00:38→13:14)
[2022-01-24] MEDS: Lactated Ringers 1,000 ML IV SCH (06:08)
[2022-01-24 06:53] LABS: BLOOD UREA NITROGEN,BUN 18 mg/dL (7.0-18.0); CHLORIDE,CL 104 mmol/L (98-107); GLUCOSE RANDOM 59 mg/dL (74-106); POTASSIUM,K 3.8 mmol/L (3.5-5.1); SODIUM,NA 141 mmol/L (136-145)
[2022-01-24] MEDS ORDERED: Lactated Ringers 1,000 ML IV ONE (07:50)
[2022-01-24] MEDS ORDERED: DULoxetine 60 MG Cap PO SCH (09:00)
[2022-01-24] MEDS ORDERED: Dextrose 5%-Lactated Ringers 1,000 ML IV SCH (09:00)
[2022-01-24] MEDS: Pantoprazole 40 MG in Sodium Chloride 0.9% 10 ML IVPUSH SCH (09:25)
[2022-01-24] MEDS: levETIRAcetam 500 MG Tab PO SCH (10:11)
[2022-01-24] MEDS: HYDROmorphone 1 MG/ML Syringe IVPUSH PRN (11:20)
== END 2022-01-24 17:20 | disposition home or self-care (01) ==
LOC: MW.ED 15:51 → MW.MS 17:49
PROVIDERS: ADMIT Student in an Organized Health Care Education/Training Program; ATTEND Student in an Organized Health Care Education/Training Program
DX: K29.50 Unspecified chronic gastritis without bleeding (principal); K28.9 Gastrojejunal ulcer, unspecified as acute or chronic, without hemorrhage or perforation; B96.81 Helicobacter pylori [H. pylori] as the cause of diseases classified elsewhere; K64.3 Fourth degree hemorrhoids; K25.9 Gastric ulcer, unspecified as acute or chronic, without hemorrhage or perforation; I10 Essential (primary) hypertension; E78.00 Pure hypercholesterolemia, unspecified; F41.9 Anxiety disorder, unspecified; F32.A Depression, unspecified; E11.9 Type 2 diabetes mellitus without complications; Z68.30 Body mass index [BMI] 30.0-30.9, adult; Z79.84 Long term (current) use of oral hypoglycemic drugs; Z79.4 Long term (current) use of insulin; Z79.899 Other long term (current) drug therapy; Z20.822 Contact with and (suspected) exposure to COVID-19
CPT/HCPCS: 36415; 43239; 74177; 80048; 80053; 81003; 82947; 83605; 83690; 83735; 84100; 84484; 85025; 85610; 85730; 86850; 86900; 86901; 93005; 96365; 96375; 96376; 99285; A9270; C9113; G0378; J1170; J1815; J2270; J2405; J2704; J3010; J3475; J3490; J7030; J7120; J7121; Q9967; U0002; 00731; 93010; 99214; 99217; 99219